=== PATIENT | male | born 1950 | race Caucasian/White ===

== ENCOUNTER 2016-09-29 22:31 | Inpatient (IN) ==
[2016-09-29] MEDS ORDERED: Acetaminophen 325 MG TABLET PO PRN (23:40)
[2016-09-29] MEDS ORDERED: Naloxone 0.4 MG/ML INJ IVP PRN (23:40)
--- NOTE | 2016-09-29 23:40 | Internal Med History&Physical ---
Date of Encounter: 09/29/16 Time of Encounter: 23:39 Assessment and Plan (1) Sepsis Current visit: Yes Status: Acute patient comes in with signs and symptoms of respiratory system etiology and found to have infiltrate on diagnostic imaging, he additionally meets SIRS criteria with the aforementioned source, lactic acid was 4.3, he received fluid bolus at [place], we will admit for further management with empiric Abx pending microbiology results, will check urine strep and legionella, supplemental oxygen as needed, concern about hx of CHF with unknown LVEF-we will get a 2D echo Qualifiers: Sepsis type: sepsis due to unspecified organism Qualified Code(s): A41.9 - Sepsis, unspecified organism (2) Pneumonia Current visit: Yes Status: Acute infiltrate in the right upper lobe, further assessment and plan per sepsis section Qualifiers: Pneumonia type: due to unspecified organism Laterality: right Lung location: upper lobe of lung Qualified Code(s): J18.1 - Lobar pneumonia, unspecified organism (3) COPD (chronic obstructive pulmonary disease) Current visit: Yes Status: Acute he has slight wheezing but this is in the setting of pneumonia, we will do scheduled and PRN nebs Qualifiers: COPD type: chronic bronchitis Chronic bronchitis type: simple Qualified Code(s): J41.0 - Simple chronic bronchitis (4) HTN (hypertension) Current visit: Yes Status: Chronic we will continue his home medications with BP monitoring Qualifiers: Hypertension type: essential hypertension Qualified Code(s): I10 - Essential (primary) hypertension Internal Medicine - H&P: HPI Chief complaint: shortness of breath Admitted From: Hospital to Hospital Transfer Plans for Post Hospital Care: Home History of present illness: Mr. Chase is a 66 year old male with a hx of COPD on chronic prednisone/HTN who was in his usual state of health until 3-4 days prior to presentation when he began to experience cough that was non productive, dyspnea that was worse than his baseline as well as dyspnea on exertion. This was associated with malaise, poor appetite, generalized weakness. He also had intermittent subjective fevers and chills. This progressed since it began so he presented to [facility] today for further management because it was not getting any better. At [facility] he had a fever of around 102, his serum lactic acid was 4.3, so he was transferred here for higher level of care. Past Med Surg Social Fam HX - Past Medical History Medical history: arthritis, asthma, CHF, COPD, coronary artery disease, hyperlipidemia, hypertension, myocardial infarction Psychiatric history: depression - Past Surgical History Surgical History: angioplasty/stent, coronary bypass (CABG), herniorrhaphy - Social History Smoking Status: Former smoker Smokeless Tobacco Status: No Alcohol use: occasionally Drug use: none - Family History Mother Adopted: No - Additional Family History Additional family history: father is and he had no known medical problems, mother is alive with no known medical problems Internal Medicine - H&P: Meds Ipratropium Neb [Atrovent Neb] 0.5 mg IH Q6HR PRN 12/21/14 [History] Montelukast [Singulair] 10 mg PO HS 12/21/14 [History] Albuterol Neb [Proventil Neb] 2.5 mg IH Q4HR #60 vial.neb 04/28/15 [Rx] Albuterol Sulfate [Albuterol Inhaler] 2 puff IH Q4HR #1 hfa.aer.ad 04/28/15 [Rx] Atorvastatin Calcium [Lipitor] 80 mg PO DAILY 04/28/15 [History] Budesonide/Formoterol 160/4.5 [Symbicort 160/4.5] 2 puff IH BIDR #1 inhaler [Rx] Bumetanide [Bumex] 0.5 mg PO DAILY #15 tablet 07/23/16 [Rx] Doxycycline 100 mg PO BID #6 capsule 07/23/16 [Rx] Isosorbide MONOnitrate (24 HR) [Imdur] 60 mg PO DAILY #30 tab.er.24h 07/23/16 [ Rx] Lactobacillus [Culturelle] 1 each PO BID #6 cap.sprink 07/23/16 [Rx] Metoprolol XL (24 HR) Succ [Toprol XL] 25 mg PO DAILY #30 tab.er.24h 07/23/16 [ Rx] levoFLOXacin [Levaquin] 500 mg PO DAILY #3 tablet 07/23/16 [Rx] predniSONE [PredniSONE] 20 mg PO BIDWM #6 tablet 07/23/16 [Rx] Allergies Peanuts Allergy (Uncoded 04/28/15 16:46) Anaphylaxis All Systems PM: A 10-system review of systems was performed and is negative for pertinent findings except as documented above in the HPI. - Constitutional Vitals: Vital Signs Temperature 102.8 F H 09/29/16 18:20 Pulse Rate 128 09/29/16 18:20 Respiratory Rate 24 09/29/16 18:20 Blood Pressure 129/69 09/29/16 18:20 O2 Sat by Pulse Oximetry 96 09/29/16 18:20 Temperature 102.8 F H 09/29/16 18:23 Pulse Rate 128 09/29/16 18:23 Respiratory Rate 24 09/29/16 18:23 Blood Pressure 129/69 09/29/16 18:23 O2 Sat by Pulse Oximetry 96 09/29/16 18:23 GENERAL: Adult male,lying in bed, Alert, acutely ill looking HEENT: NC/AT, EOMI, PERRLA, anicteric sclera, normal conjunctiva, supple, clear nares, moist mucous membranes, clear oropharynx, RESP: bilateral end expiratory wheeze with reduced AE, no crackles heard CARDIO: Normal hearts sounds; S1 and 2, RRR with no murmurs, no JVD, no ankle edema GI: Soft abdomen, full, no tenderness, no organomegaly felt, normal bowel sounds heard MUSCULOSKELETAL: grossly normal movements bilaterally, no deformities noted NEUROLOGIC: CN 2-12 intact grossly. No motor/sensory deficit appreciated, PSYCHIATRY: AAO x 3. Mood is fair, SKIN: ecchymotic patches noted Internal Med - H&P Results - Labs CBC & Chem 7: 09/30/16 00:47 09/30/16 00:47 - Diagnostic Studies Chest x-ray Status: image reviewed by me
[2016-09-29] MEDS ORDERED: Albuterol 2.5 MG/3 ML NEBULIZER IH PRN (23:42)
[2016-09-30 00:57] LABS: Basophils % 0.2 %; Hemoglobin 11.7 g/dL (12.9-16.9); Immature Granulocytes % 1.5 % (0-4); Lymphocytes # 0.2 K/mcL (0.6-4.6); Lymphocytes % 1.4 %; Mean Corpuscular HGB Conc 33.4 g/dL (31.6-35.5); Mean Corpuscular Hemoglobin 31.4 pg (28.0-33.3); Mean Corpuscular Volume 93.8 fL (83.0-100.0); Mean Platelet Volume 9.7 fL (9.4-12.4); Monocytes # 0.9 K/mcL (0.0-1.3); Monocytes % 6.2 %; Neutrophils # 13.1 K/mcL (1.6-8.9); Platelet Count 237 K/mcL (140-400); Red Blood Count 3.73 M/mcL (4.19-5.50); Red Cell Distribution Width 13.3 % (11.5-14.5); Segmented Neutrophils % 90.7 %
[2016-09-30 01:12] LABS: BUN/Creatinine Ratio 23 (6-26); Blood Urea Nitrogen 19 mg/dL (8-26); Calcium 9.2 mg/dL (8.6-10.8); Carbon Dioxide 25 mEq/L (19-29); Chloride 102 mEq/L (98-109); Glucose 120 mg/dL (70-99); Magnesium 1.7 mg/dL (1.6-2.6); Osmolality,Calculated 289 (280-300); Phosphorous 3.8 mg/dL (2.3-4.7); Potassium 3.8 mEq/L (3.5-4.5); Sodium 138 mEq/L (136-145); eGFR For African Americans > 60 (> 60); eGFR For Non-African Americans > 60 (> 60)
[2016-09-30 01:30] LABS: Platelet Estimate Normal (Normal)
[2016-09-30] MEDS ORDERED: Magnesium Sulfate 2 GM in D5% in Water 100 ML IVPB ONE (02:13)
--- NOTE | 2016-09-30 07:59 | Internal Med Progress Note ---
<Milana Loredo - Last Filed: 09/30/16 15:12> Date of Encounter: 09/30/16 Time of Encounter: 07:55 - Assessment and plan (1) Sepsis Current Visit: Yes Status: Acute Assessment and plan: The patient arrived with dyspnea and non productive cough, night sweats, wheezing, fatigue. He denied mcfp, TB exposure, weight loss. Rule out TB so quantiferon-TB and tuberculin skin test PPD ordered. Patient relocated to negative pressure room 11. TB exposure precautions ordered. Patient is on chronic prednisone 5mg for COPD. He technically meets septic shock criteria however he responded well to fluids and blood pressure is stable. He met SIRS criteria febrile, lactic acid 4.3, neutrophil bands over 10%. However, lactic acid is now 1.7. We will continue to monitor. Blood cultures, urine strep and legionella, quantiferon-TB, tuberculin skin test PPD, and chest echocardiogram are pending. Qualifiers: Sepsis type: sepsis due to unspecified organism Qualified Code(s): A41.9 - Sepsis, unspecified organism (2) Pneumonia Current Visit: Yes Status: Acute Assessment and plan: Chest x-ray and CT revealed multifocal pneumonia in the right upper and middle lobes. Patient is on chronic prednisone 5mg for COPD. The patient was started on Azithromycin 500 and Ceftriaxone, while sputum cultures are pending. The patient will be advised to get a follow up chest CT in 6-8 weeks. Qualifiers: Pneumonia type: due to unspecified organism Laterality: right Lung location: upper lobe of lung Qualified Code(s): J18.1 - Lobar pneumonia, unspecified organism (3) COPD (chronic obstructive pulmonary disease) Current Visit: Yes Status: Acute Assessment and plan: The patient is on prednisone 5mg BID chronically. We will continue medication here. Former smoker. Qualifiers: COPD type: chronic bronchitis Chronic bronchitis type: simple Qualified Code(s): J41.0 - Simple chronic bronchitis (4) HTN (hypertension) Current Visit: Yes Status: Chronic Assessment and plan: Blood pressure is stable. Continuing home medications. Isosorbide mononitrate, metoprolol, and atorvastatin. Qualifiers: Hypertension type: essential hypertension Qualified Code(s): I10 - Essential (primary) hypertension - Subjective Interval history: The patient was laying down the bed comfortably. He states he has increased weakness, fatigue, dyspnea, nonproductive cough, night sweats, wheezing, increased urinary frequency. He denies headache, confusion, chest pain, nausea, vomiting, hematuria. Denies sick contacts, travel, mcfp time, known TB exposure. - Constitutional Vitals: Temp Pulse Resp BP Pulse Ox 98 F 78 16 105/66 98 09/30/16 07:01 09/30/16 07:01 09/30/16 07:01 09/30/16 07:01 09/30/16 07:01 General appearance: Present: A&O X 3, pleasant. Absent: no acute distress - Head Head exam: Present: atraumatic, normal inspection - Eye Eye exam: Present: conjuntiva pink. Absent: scleral icterus - Neck Neck exam general surgery: Present: trachea midline. Absent: lymphadenopathy, tenderness - Respiratory Respiratory exam: Present: rales, wheezes. Absent: chest wall tenderness Additional comments: Mild wheezing throughout lungs bilaterally but worse in the right lobe.RALES at base of lungs bilaterally - Cardiovascular Cardiovascular exam: Present: RRR, +S1, +S2. Absent: gallop, JVD, rubs - GI/Abdominal GI/Abdominal exam: Present: normal bowel sounds, soft. Absent: distended, guarding, tenderness - Expanded Lower Extremities Exam Lower Leg exam: Present: normal inspection. Absent: crepitus, erythema, swelling, tenderness - Skin Skin exam: Present: dry, intact Internal Medicine: Result - Labs CBC & Chem 7: 09/30/16 00:47 09/30/16 00:47 Labs: Short CBC 09/30/16 Range/Units 00:47 WBC 14.4 H (4.3-11.1) K/mcL Hgb 11.7 L D (12.9-16.9) g/dL Hct 35.0 L (37.5-50.1) % Plt Count 237 (140-400) K/mcL Neutrophils # 13.1 H (1.6-8.9) K/mcL BMP 09/30/16 00:47 Sodium 138 Potassium 3.8 Chloride 102 Carbon Dioxide 25 BUN 19 Creatinine 0.84 Glucose 120 H Calcium 9.2 Consult Discharge Plan - Plan Referrals: Jesse Lemus DO [Primary Care Provider] - <Chip Zavaleta - Last Filed: 09/30/16 18:17> Date of Encounter: 09/30/16 - Constitutional Vitals: Temp Pulse Resp BP Pulse Ox 97.9 F 91 16 118/66 92 09/30/16 16:15 09/30/16 16:15 09/30/16 16:15 09/30/16 16:15 09/30/16 16:15 Internal Medicine: Result - Labs CBC & Chem 7: 09/30/16 00:47 09/30/16 00:47 Labs: Short CBC 09/30/16 Range/Units 00:47 WBC 14.4 H (4.3-11.1) K/mcL Hgb 11.7 L D (12.9-16.9) g/dL Hct 35.0 L (37.5-50.1) % Plt Count 237 (140-400) K/mcL Neutrophils # 13.1 H (1.6-8.9) K/mcL BMP 09/30/16 00:47 Sodium 138 Potassium 3.8 Chloride 102 Carbon Dioxide 25 BUN 19 Creatinine 0.84 Glucose 120 H Calcium 9.2 - Impressions Impressions Chest CT 09/30/16 10:18 IMPRESSION: 1. Interval development of dense airspace consolidation throughout the right upper and right middle lobes, most likely representing multifocal pneumonia. Intrapulmonary malignancy is considered less likely. Suggest appropriate clinical treatment, and recommend short-term chest CT follow-up in 6-8 weeks to ensure complete clearing in some multifocal opacities. Alternatively, formal pulmonary consultation and bronchoscopy could be considered. 2. Interval development of mild mediastinal lymphadenopathy, most likely benign and reactive in etiology given the patient's underlying lung findings. However, this should also be followed to resolution. D/ / 09/30/2016 12:56:29 Will Villanueva MD / lisbet Interpreting Provider: Will Villanueva MD - Attending Attestation I examined this patient and my medical decision-making was reviewed with the Resident Physician, Dr Loredo. I agree with the documented findings, disposition and treatment plan as described except to the extent set forth below. patient appears in no acute distress. José Manuel lung exam reveals bilateral wheezes and rales. Plan: IV fluids, IV antibiotics for pneumonia. Follow-up cultures.
[2016-09-30] MEDS: Azithromycin 250 MG TABLET PO SCH (09:13)
[2016-09-30] MEDS: predniSONE 5 MG TABLET PO SCH ×2 (09:13→18:05)
[2016-09-30] MEDS: Metoprolol XL (24 HR) Succ 25 MG TAB.ER.24H PO SCH (09:13)
[2016-09-30] MEDS: Isosorbide MONOnitrate (24 HR) 60 MG TAB.ER.24H PO SCH (09:13)
[2016-09-30] MEDS ORDERED: Tuberculin Skin Test (PPD) 5 TUB/0.1 ML VIAL ID ONE (11:50)
[2016-09-30] MEDS: Aspirin Enteric Coated 325 MG Tablet PO SCH (22:37)
[2016-10-01 01:25] LABS: Hematocrit 34.8 % (37.5-50.1); Hemoglobin 11.3 g/dL (12.9-16.9); Lymphocytes # 0.4 K/mcL (0.6-4.6); Mean Corpuscular HGB Conc 32.5 g/dL (31.6-35.5); Mean Corpuscular Hemoglobin 31.3 pg (28.0-33.3); Mean Corpuscular Volume 96.4 fL (83.0-100.0); Mean Platelet Volume 10.5 fL (9.4-12.4); Monocytes # 1.1 K/mcL (0.0-1.3); Platelet Count 271 K/mcL (140-400); Red Blood Count 3.61 M/mcL (4.19-5.50); Red Cell Distribution Width 13.4 % (11.5-14.5)
[2016-10-01 01:41] LABS: Alanine Aminotransferase 17 Units/L (0-55); Albumin/Globulin Ratio 0.5 (1.1-2.2); Alkaline Phosphatase 75 Units/L (38-126); Aspartate Amino Transferase 22 Units/L (5-34); BUN/Creatinine Ratio 33 (6-26); Bilirubin,Total 0.3 mg/dL (0.2-1.2); Blood Urea Nitrogen 28 mg/dL (8-26); Calcium 9.4 mg/dL (8.6-10.8); Carbon Dioxide 33 mEq/L (19-29); Chloride 100 mEq/L (98-109); Globulin 4.1 g/dL (2.4-3.5); Glucose 129 mg/dL (70-99); Osmolality,Calculated 297 (280-300); Potassium 3.9 mEq/L (3.5-4.5); Sodium 140 mEq/L (136-145); Total Protein 6.1 g/dL (6.0-8.3); eGFR For African Americans > 60 (> 60); eGFR For Non-African Americans > 60 (> 60)
[2016-10-01 01:48] LABS: Neutrophils # 16.4 K/mcL (1.6-8.9); Platelet Estimate Normal (Normal)
[2016-10-01] MEDS: *HR* Enoxaparin 40 MG/0.4 ML SYRINGE SQ SCH (05:43)
[2016-10-01] MEDS: Azithromycin 250 MG TABLET PO SCH (08:28)
[2016-10-01] MEDS: Aspirin Enteric Coated 325 MG Tablet PO SCH (08:28)
[2016-10-01] MEDS: predniSONE 5 MG TABLET PO SCH (08:28)
[2016-10-01] MEDS: Isosorbide MONOnitrate (24 HR) 60 MG TAB.ER.24H PO SCH (08:29)
[2016-10-01] MEDS: Metoprolol XL (24 HR) Succ 25 MG TAB.ER.24H PO SCH (08:29)
--- NOTE | 2016-10-01 11:29 | Internal Med Progress Note ---
Addendum entered and electronically signed by Milana Loredo DO 10/01/16 14:26: The patient was given solumedrol, duonebs, and ipratropium for COPD exacerbation. Original Note: <Milana Loredo - Last Filed: 10/01/16 11:27> Date of Encounter: 10/01/16 Time of Encounter: 09:00 - Assessment and plan (1) Sepsis Current Visit: Yes Status: Acute Assessment and plan: Should being treated for multifocal pneumonia the right upper and middle lobes The patient arrived with dyspnea and non productive cough, night sweats, wheezing, fatigue. He denied longterm, TB exposure, weight loss. Rule out TB so quantiferon-TB and tuberculin skin test PPD ordered. Patient relocated to negative pressure room 11. TB exposure precautions ordered. Patient is on IV antibiotics, IV fluids, relators of supplemental oxygen Patient is on chronic prednisone 5mg for COPD. He technically meets septic shock criteria however he responded well to fluids and blood pressure is stable. He met SIRS criteria febrile, lactic acid 4.3, neutrophil bands over 10%. However, lactic acid yesterday was 1.7. We will continue to monitor. Blood cultures, urine strep and legionella, quantiferon-TB, tuberculin skin test PPD, and chest echocardiogram are pending. Qualifiers: Sepsis type: sepsis due to unspecified organism Qualified Code(s): A41.9 - Sepsis, unspecified organism (2) Pneumonia Current Visit: Yes Status: Acute Assessment and plan: Chest x-ray and CT revealed multifocal pneumonia in the right upper and middle lobes. Patient is on chronic prednisone 5mg for COPD. The patient was started on Azithromycin 500 and Ceftriaxone, while sputum cultures are pending. Patient is on 3L of supplemental oxygen. The patient will be advised to get a follow up chest CT in 6-8 weeks. Qualifiers: Pneumonia type: due to unspecified organism Laterality: right Lung location: upper lobe of lung Qualified Code(s): J18.1 - Lobar pneumonia, unspecified organism (3) COPD (chronic obstructive pulmonary disease) Current Visit: Yes Status: Acute Assessment and plan: The patient is on prednisone 5mg BID chronically. We will continue medication here. Former smoker. Qualifiers: COPD type: chronic bronchitis Chronic bronchitis type: simple Qualified Code(s): J41.0 - Simple chronic bronchitis (4) HTN (hypertension) Current Visit: Yes Status: Chronic Assessment and plan: Blood pressure is stable. Continuing home medications. Isosorbide mononitrate, metoprolol, aspirin, and atorvastatin. Qualifiers: Hypertension type: essential hypertension Qualified Code(s): I10 - Essential (primary) hypertension (5) CHF (congestive heart failure) Current Visit: No Status: Chronic Assessment and plan: Echocardiogram revealed LVEF 25%. On 03/10/2014 LVEF was 40-45% Cardiology consulted. Qualifiers: Congestive heart failure type: combined Congestive heart failure chronicity : chronic Qualified Code(s): I50.42 - Chronic combined systolic (congestive) and diastolic (congestive) heart failure - Subjective Interval history: The patient was laying down in bed. He states that his dyspnea is worse today. He is on 3 L of oxygen. He states he has increased weakness, fatigue, nonproductive cough, night sweats , wheezing, increased urinary frequency, chills. He denies headache, confusion, chest pain, nausea, vomiting, hematuria. Denies sick contacts, travel, longterm time, known TB exposure. - Constitutional Vitals: Temp Pulse Resp BP Pulse Ox 97.8 F 91 18 99/65 95 10/01/16 08:26 10/01/16 08:26 10/01/16 08:26 10/01/16 08:26 10/01/16 08:33 General appearance: Present: A&O X 3, pleasant, answers questions appropriately. Absent: no acute distress - Head Head exam: Present: atraumatic - Eye Eye exam: Present: conjuntiva pink Additional comments: No scleral icterus - Neck Neck exam general surgery: Present: supple, trachea midline Additional comments: No tenderness, lymphadenopathy - Respiratory Respiratory exam: Present: decreased breath sounds, rales, wheezes Additional comments: Tactile fremitis is more pronounced in the right lung. RALES in base of lungs bilaterally. Dull to percussion at the base of lungs bilaterally and right middle lobe. Wheezing bilaterally - Cardiovascular Cardiovascular exam: Present: RRR, +S1, +S2 Additional comments: No rubs, clicks, gallops. - GI/Abdominal GI/Abdominal exam: Present: normal bowel sounds, soft Additional comments: No tenderness, guarding, firm. - Extremities Exam Additional comments: No lower extremity edema, erythema, tenderness - Back Exam Back exam: Absent: tenderness (No tenderness. Scan is moist) - Skin Skin exam: Present: dry (Legs are dry.), intact, warm Additional comments: Purpura on upper extremities bilaterally Internal Medicine: Result - Labs CBC & Chem 7: 10/01/16 00:32 10/01/16 00:32 Labs: Short CBC 10/01/16 Range/Units 00:32 WBC 17.8 H (4.3-11.1) K/mcL Hgb 11.3 L (12.9-16.9) g/dL Hct 34.8 L (37.5-50.1) % Plt Count 271 (140-400) K/mcL Neutrophils # 16.4 H (1.6-8.9) K/mcL BMP 10/01/16 00:32 Sodium 140 Potassium 3.9 Chloride 100 Carbon Dioxide 33 H BUN 28 H Creatinine 0.84 Glucose 129 H Calcium 9.4 Cardiac Enzymes 09/30/16 09/30/16 10/01/16 Range/Units 18:49 21:54 00:32 Troponin I 0.01 0.01 0.01 (0-0.03) ng/mL Liver Function 10/01/16 Range/Units 00:32 Total Bilirubin 0.3 (0.2-1.2) mg/dL AST 22 (5-34) Units/L ALT 17 (0-55) Units/L Alkaline Phosphatase 75 (38-126) Units/L Albumin 2.0 L (3.5-5.0) g/dL - Impressions Impressions Chest CT 09/30/16 10:18 IMPRESSION: 1. Interval development of dense airspace consolidation throughout the right upper and right middle lobes, most likely representing multifocal pneumonia. Intrapulmonary malignancy is considered less likely. Suggest appropriate clinical treatment, and recommend short-term chest CT follow-up in 6-8 weeks to ensure complete clearing in some multifocal opacities. Alternatively, formal pulmonary consultation and bronchoscopy could be considered. 2. Interval development of mild mediastinal lymphadenopathy, most likely benign and reactive in etiology given the patient's underlying lung findings. However, this should also be followed to resolution. D/ / 09/30/2016 12:56:29 Will Villanueva MD / lisbet Interpreting Provider: Will Villanueva MD Consult Discharge Plan - Plan Referrals: Jesse Lemus DO [Primary Care Provider] - <Chip Zavaleta - Last Filed: 10/01/16 18:57> Date of Encounter: 10/01/16 - Constitutional Vitals: Temp Pulse Resp BP Pulse Ox 97.8 F 91 18 99/65 93 10/01/16 08:26 10/01/16 08:26 10/01/16 15:55 10/01/16 08:26 10/01/16 15:55 Internal Medicine: Result - Labs CBC & Chem 7: 10/01/16 00:32 10/01/16 00:32 Labs: Short CBC 10/01/16 Range/Units 00:32 WBC 17.8 H (4.3-11.1) K/mcL Hgb 11.3 L (12.9-16.9) g/dL Hct 34.8 L (37.5-50.1) % Plt Count 271 (140-400) K/mcL Neutrophils # 16.4 H (1.6-8.9) K/mcL BMP 10/01/16 00:32 Sodium 140 Potassium 3.9 Chloride 100 Carbon Dioxide 33 H BUN 28 H Creatinine 0.84 Glucose 129 H Calcium 9.4 Cardiac Enzymes 09/30/16 09/30/16 10/01/16 Range/Units 18:49 21:54 00:32 Troponin I 0.01 0.01 0.01 (0-0.03) ng/mL Liver Function 10/01/16 Range/Units 00:32 Total Bilirubin 0.3 (0.2-1.2) mg/dL AST 22 (5-34) Units/L ALT 17 (0-55) Units/L Alkaline Phosphatase 75 (38-126) Units/L Albumin 2.0 L (3.5-5.0) g/dL - ABG Interpretation ABG results: ABG ABG pH 7.43 pH Units (7.32-7.45) 10/01/16 11:53 ABG pCO2 51 mmHg (35-45) H 10/01/16 11:53 ABG pO2 77 mmHg (85-104) L 10/01/16 11:53 ABG O2 Saturation 96 % (95-98) 10/01/16 11:53 - Attending Attestation I examined this patient and my medical decision-making was reviewed with the Resident Physician, Dr Loredo. I agree with the documented findings, disposition and treatment plan as described except to the extent set forth below. On exam b/l expiratory wheezes. COPD exacerbation: we'll add Solumedrol and Duoneb
[2016-10-01] MEDS: Ipratropium/Albuterol Neb 3 ML IH SCH ×4 (11:58→23:37)
[2016-10-01 12:07] LABS: ABG Base Excess 8.2 mEq/L (-2.0 to 3.0); ABG HCO3 33.9 mEQ/L (21-27); ABG Oxygen Saturation 96 % (95-98); ABG PCO2 51 mmHg (35-45); ABG PH 7.43 pH Units (7.32-7.45); ABG PO2 77 mmHg (85-104); ABG TCO2 35.5 mEq/L (20-26); Blood Gas Liter Flow 2.5 L/MIN
[2016-10-01] MEDS: methylPREDNISolone 125 MG/2 ML VIAL IVP SCH ×3 (13:24→23:58)
[2016-10-02 03:50] LABS: Basophils # 0.1 K/mcL (0.0-0.2); Basophils % 0.3 %; Hematocrit 32.2 % (37.5-50.1); Hemoglobin 10.6 g/dL (12.9-16.9); Immature Granulocytes % 1.5 % (0-4); Lymphocytes # 0.4 K/mcL (0.6-4.6); Lymphocytes % 2.1 %; Mean Corpuscular HGB Conc 32.9 g/dL (31.6-35.5); Mean Corpuscular Hemoglobin 31.6 pg (28.0-33.3); Mean Corpuscular Volume 96.1 fL (83.0-100.0); Mean Platelet Volume 10.4 fL (9.4-12.4); Monocytes # 0.6 K/mcL (0.0-1.3); Monocytes % 3.7 %; Neutrophils # 15.7 K/mcL (1.6-8.9); Platelet Count 299 K/mcL (140-400); Red Blood Count 3.35 M/mcL (4.19-5.50); Red Cell Distribution Width 13.4 % (11.5-14.5); Segmented Neutrophils % 92.4 %
[2016-10-02 04:03] LABS: Alanine Aminotransferase 22 Units/L (0-55); Albumin/Globulin Ratio 0.5 (1.1-2.2); Alkaline Phosphatase 83 Units/L (38-126); Aspartate Amino Transferase 30 Units/L (5-34); BUN/Creatinine Ratio 30 (6-26); Bilirubin,Total 0.2 mg/dL (0.2-1.2); Blood Urea Nitrogen 24 mg/dL (8-26); Calcium 9.3 mg/dL (8.6-10.8); Carbon Dioxide 33 mEq/L (19-29); Chloride 99 mEq/L (98-109); Globulin 3.9 g/dL (2.4-3.5); Glucose 184 mg/dL (70-99); Osmolality,Calculated 297 (280-300); Potassium 3.5 mEq/L (3.5-4.5); Sodium 139 mEq/L (136-145); Total Protein 5.8 g/dL (6.0-8.3); eGFR For African Americans > 60 (> 60); eGFR For Non-African Americans > 60 (> 60)
[2016-10-02 04:04] LABS: Albumin 1.9 g/dL (3.5-5.0)
[2016-10-02 04:21] LABS: Platelet Estimate Normal (Normal); Toxic Granulation Present (Not Present)
[2016-10-02] MEDS: Ipratropium/Albuterol Neb 3 ML IH SCH ×5 (04:59→19:41)
[2016-10-02] MEDS: *HR* Enoxaparin 40 MG/0.4 ML SYRINGE SQ SCH (05:48)
[2016-10-02] MEDS: methylPREDNISolone 125 MG/2 ML VIAL IVP SCH ×3 (05:48→17:17)
[2016-10-02 06:10] LABS: ABG Base Excess 9.4 mEq/L (-2.0 to 3.0); ABG Glucose 153 mg/dL (60-95); ABG HCO3 35.2 mEQ/L (21-27); ABG Hematocrit 32 % (35-51); ABG Ionized Calcium 1.21 mmol/L (1.15-1.35); ABG Oxygen Saturation 97 % (95-98); ABG PCO2 53 mmHg (35-45); ABG PH 7.43 pH Units (7.32-7.45); ABG PO2 88 mmHg (85-104); ABG TCO2 36.8 mEq/L (20-26); Blood Gas FiO2 30 %; Blood Gas Liter Flow 2.5 L/MIN
[2016-10-02] MEDS: Aspirin Enteric Coated 325 MG Tablet PO SCH (09:33)
[2016-10-02] MEDS: Isosorbide MONOnitrate (24 HR) 60 MG TAB.ER.24H PO SCH (09:33)
[2016-10-02] MEDS: Azithromycin 250 MG TABLET PO SCH (09:34)
[2016-10-02] MEDS: Metoprolol XL (24 HR) Succ 25 MG TAB.ER.24H PO SCH (09:34)
[2016-10-02] MEDS ORDERED: Levofloxacin 750 MG/150 ML 750 MG/150 ML BAG IVPB SCH (10:00)
[2016-10-02] MEDS ORDERED: Vancomycin 1,000 MG in D5% in Water 250 ML IVPB SCH ×2 (11:00→18:00)
[2016-10-02] MEDS ORDERED: 0.9 % Sodium Chloride 1,000 ML IVC ONE (11:13)
[2016-10-02] MEDS ORDERED: GuaiFENesin/Codeine Oral Soln 5 ML UDC PO PRN (11:14)
--- NOTE | 2016-10-02 13:09 | Internal Med Progress Note ---
<Milana Loredo - Last Filed: 10/02/16 13:05> Date of Encounter: 10/02/16 Time of Encounter: 10:00 - Assessment and plan (1) Sepsis Current Visit: Yes Status: Acute Assessment and plan: Multifocal pneumonia the right upper and middle lobes. The patient arrived with dyspnea and non productive cough, night sweats, wheezing, fatigue. He denied prison, TB exposure, weight loss. Rule out TB so quantiferon-TB and tuberculin skin test PPD ordered. Will re- check it at 1:30am today Blood cultures, urine strep and legionella, quantiferon-TB, tuberculin skin test PPD Patient relocated to negative pressure room 11. TB exposure precautions ordered. Patient is on IV antibiotics, IV fluids, supplemental oxygen. Patient's blood pressure decreased today, so blood pressure medications are held and the patient received a bolus of saline. He technically meets septic shock criteria however he responded well to fluids and blood pressure is stable. He met SIRS criteria febrile, lactic acid 4.3, neutrophil bands over 10%. However, lactic acid yesterday was 1.7. We will continue to monitor. Qualifiers: Sepsis type: sepsis due to unspecified organism Qualified Code(s): A41.9 - Sepsis, unspecified organism (2) Pneumonia Current Visit: Yes Status: Acute Assessment and plan: Chest x-ray and CT revealed multifocal pneumonia in the right upper and middle lobes. Patient is on chronic prednisone 5mg for COPD but we are holding, pending sputum cultures and quantiferon-TB gold. The patient was started on Azithromycin 500 and Ceftriaxone, while sputum cultures are pending. Patient is on 3L of supplemental oxygen. The patient will be advised to get a follow up chest CT in 6-8 weeks. Qualifiers: Pneumonia type: due to unspecified organism Laterality: right Lung location: upper lobe of lung Qualified Code(s): J18.1 - Lobar pneumonia, unspecified organism (3) COPD (chronic obstructive pulmonary disease) Current Visit: Yes Status: Acute Assessment and plan: The patient is on prednisone 5mg BID chronically, but we are holding pending TB results. Former smoker. Qualifiers: COPD type: chronic bronchitis Chronic bronchitis type: simple Qualified Code(s): J41.0 - Simple chronic bronchitis (4) HTN (hypertension) Current Visit: Yes Status: Chronic Assessment and plan: Hypotensive today at 99/58, holding blood pressure medications. Home medications. Isosorbide mononitrate, metoprolol, aspirin, and atorvastatin. Qualifiers: Hypertension type: essential hypertension Qualified Code(s): I10 - Essential (primary) hypertension (5) CHF (congestive heart failure) Current Visit: No Status: Chronic Assessment and plan: Echocardiogram revealed LVEF 25%. On 03/10/2014 LVEF was 40-45% Patient has a history of CAD with CABG x4 ischemic cardiomyopathy which may be contributing to decreased LVEF. Cardiology was consulted and the patient was started on an gavin inhibitor. Cardiology consulted and stated they would come to the patient. Qualifiers: Congestive heart failure type: combined Congestive heart failure chronicity : chronic Qualified Code(s): I50.42 - Chronic combined systolic (congestive) and diastolic (congestive) heart failure - Subjective Interval history: The patient was laying down in bed. He states that his dyspnea is better today. He is on 3 L of oxygen. He states he has fatigue and nonproductive cough. He denies headache, confusion, chest pain, nausea, vomiting, hematuria, chills. Denies sick contacts, travel, prison time, known TB exposure. - Constitutional Vitals: Temp Pulse Resp BP Pulse Ox 97.4 F L 73 18 99/58 97 10/02/16 12:25 10/02/16 12:25 10/02/16 12:25 10/02/16 12:25 10/02/16 12:25 General appearance: Present: A&O X 3, pleasant, answers questions appropriately. Absent: no acute distress - Head Head exam: Present: atraumatic, normal inspection - Eye Eye exam: Present: normal appearance (No scleral icterus), conjuntiva pink - Neck Neck exam general surgery: Present: supple, trachea midline (Nontender) - Respiratory Respiratory exam: Present: rales, wheezes Additional comments: Tactile fremitis is more pronounced on the right side no stridor, respiratory distress - Cardiovascular Cardiovascular exam: Present: RRR - GI/Abdominal GI/Abdominal exam: Present: normal bowel sounds, soft, no peritoneal signs Additional comments: No guarding, tenderness, distended - Extremities Exam Extremities exam: Present: normal inspection. Absent: pedal edema, tenderness - Back Exam Back exam: Present: normal inspection Additional comments: Nose CVA tenderness - Skin Skin exam: Present: dry, intact Internal Medicine: Result - Labs CBC & Chem 7: 10/02/16 03:44 10/02/16 03:44 Labs: Short CBC 10/02/16 Range/Units 03:44 WBC 17.0 H (4.3-11.1) K/mcL Hgb 10.6 L (12.9-16.9) g/dL Hct 32.2 L (37.5-50.1) % Plt Count 299 (140-400) K/mcL Neutrophils # 15.7 H (1.6-8.9) K/mcL BMP 10/02/16 03:44 Sodium 139 Potassium 3.5 Chloride 99 Carbon Dioxide 33 H BUN 24 Creatinine 0.80 Glucose 184 H Calcium 9.3 Liver Function 10/02/16 Range/Units 03:44 Total Bilirubin 0.2 (0.2-1.2) mg/dL AST 30 (5-34) Units/L ALT 22 (0-55) Units/L Alkaline Phosphatase 83 (38-126) Units/L Albumin 1.9 L (3.5-5.0) g/dL - ABG Interpretation ABG results: ABG ABG pH 7.43 pH Units (7.32-7.45) 10/02/16 05:55 ABG pCO2 53 mmHg (35-45) H 10/02/16 05:55 ABG pO2 88 mmHg (85-104) 10/02/16 05:55 ABG O2 Saturation 97 % (95-98) 10/02/16 05:55 - Impressions Impressions Chest CT 09/30/16 10:18 IMPRESSION: 1. Interval development of dense airspace consolidation throughout the right upper and right middle lobes, most likely representing multifocal pneumonia. Intrapulmonary malignancy is considered less likely. Suggest appropriate clinical treatment, and recommend short-term chest CT follow-up in 6-8 weeks to ensure complete of the multifocal opacities. Alternatively, formal pulmonary consultation and bronchoscopy could be considered. 2. Interval development of mild mediastinal lymphadenopathy, most likely benign and reactive in etiology given the patient's underlying lung findings. However, this should also be followed to resolution. D/ /30/2016 12:56:29 Will Villanueva MD / lisbet Interpreting Provider: Will Villanueva MD Consult Discharge Plan - Plan Referrals: Jesse Lemus DO [Primary Care Provider] - <EhsanChip terry - Last Filed: 10/02/16 19:36> Date of Encounter: 10/02/16 - Constitutional Vitals: Temp Pulse Resp BP Pulse Ox 97.8 F 54 20 101/56 97 10/02/16 17:28 10/02/16 17:28 10/02/16 17:28 10/02/16 17:28 10/02/16 17:28 Internal Medicine: Result - Labs CBC & Chem 7: 10/02/16 03:44 10/02/16 03:44 Labs: Short CBC 10/02/16 Range/Units 03:44 WBC 17.0 H (4.3-11.1) K/mcL Hgb 10.6 L (12.9-16.9) g/dL Hct 32.2 L (37.5-50.1) % Plt Count 299 (140-400) K/mcL Neutrophils # 15.7 H (1.6-8.9) K/mcL BMP 10/02/16 03:44 Sodium 139 Potassium 3.5 Chloride 99 Carbon Dioxide 33 H BUN 24 Creatinine 0.80 Glucose 184 H Calcium 9.3 Liver Function 10/02/16 Range/Units 03:44 Total Bilirubin 0.2 (0.2-1.2) mg/dL AST 30 (5-34) Units/L ALT 22 (0-55) Units/L Alkaline Phosphatase 83 (38-126) Units/L Albumin 1.9 L (3.5-5.0) g/dL - ABG Interpretation ABG results: ABG ABG pH 7.43 pH Units (7.32-7.45) 10/02/16 05:55 ABG pCO2 53 mmHg (35-45) H 10/02/16 05:55 ABG pO2 88 mmHg (85-104) 10/02/16 05:55 ABG O2 Saturation 97 % (95-98) 10/02/16 05:55 - Impressions Impressions Chest CT 09/30/16 10:18 IMPRESSION: 1. Interval development of dense airspace consolidation throughout the right upper and right middle lobes, most likely representing multifocal pneumonia. Intrapulmonary malignancy is considered less likely. Suggest appropriate clinical treatment, and recommend short-term chest CT follow-up in 6-8 weeks to ensure complete of the multifocal opacities. Alternatively, formal pulmonary consultation and bronchoscopy could be considered. 2. Interval development of mild mediastinal lymphadenopathy, most likely benign and reactive in etiology given the patient's underlying lung findings. However, this should also be followed to resolution. D/ / 09/30/2016 12:56:29 Will Villanueva MD / lisbet Interpreting Provider: Will Villanueva MD - Attending Attestation I examined this patient and my medical decision-making was reviewed with the Resident Physician, Dr Loredo. I agree with the documented findings, disposition and treatment plan as described except to the extent set forth below. Lung auscultation reveals improvement in right lung field rales from yesterday.wheezing significantly improved. Plan: Continue antibiotic therapy. IV fluids. Trend lactic acid. Follow-up cultures. Follow-up with cardiology. Consult ID.
--- NOTE | 2016-10-02 13:39 | Cardiology Consult Note ---
Date of Encounter: 10/02/16 Time of Encounter: 13:00 Assessment and Plan (1) Pneumonia Current Visit: Yes Status: Acute Per cardiology: -Pneumonia noted to chest x-ray and CT. -On ATB. -Currently in TB precautions, pending PPD. -Mangement per primary service. Qualifiers: Pneumonia type: due to unspecified organism Laterality: right Lung location: upper lobe of lung Qualified Code(s): J18.1 - Lobar pneumonia, unspecified organism (2) Ischemic cardiomyopathy Current Visit: Yes Status: Chronic Per cardiology: -KNown ischemic cardiomyopathy. -[facility] 09/30/16 with LVEF 25% with associated wall motion abnormalities, moderately dilated LV, no significant valvular dysfunction, apex, apical inferior, apical anterior, mid anterior, basal anterior, apical septal, apical lateral, mid anterior lateral, basal anterior lateral, mid anterior septal, mid inferior lateral, basal anterior septal, and basal inferior leiva hypokinetic. Mid inferior, basal inferior, mid inferior septal, and basal inferior septal leiva akinetic. -2013 LVEF 40%, 2010 LVEF 25%. -On beta blayne. Not on gavin, patient reports was previously on lisinopril, but is unsure why it was stopped. Denies allergy/adverse reaction to gavin inhibitors. -Will start gavin inhibitor. Will hold for SBP less than 100. -Cardiology will sign off and will follow in outpatient setting. FOllow up set. (3) Coronary artery disease Current Visit: Yes Status: Chronic Per cardiology: -KNown CAD with previous CABG x4. -[facility] 2013 with 100% stenosis proximal LAD, 99% mid circumflex in stent restenosis with balloon angioplasty performed, 99% OM1 with balloon angioplasty , Right PDA has collaterals that feed from left to right, 100% proximal RCA, BERRIOS to LAD patent, SVG to RCA occluded, SVG to OM1 occluded, SVG to OM2 occluded. -On asa, statin, beta blayne, and imdur. -Patient denies chest pain. -Echo as above. -Will continue to monitor in outpatient setting. Qualifiers: Coronary Disease-Associated Artery/Lesion type: unspecified vessel or lesion type [place] vs. transplanted heart: [place] heart Associated angina: without angina Qualified Code(s): I25.10 - Atherosclerotic heart disease of [place] coronary artery without angina pectoris Discussion w patient/family: The assessment and plan as outlined above was discussed with the patient who expressed understanding and agreement. All questions were answered. Thank you for involving us in the care of your patient. Please call with any questions. Discussed and reviewed with . History of Present Illness Consult date: 10/01/16 Requesting physician: Milana Loredo Consult reason: LVEF severely reduced Chief complaint: cough, shortness of breath History of present illness: Mr. Chase is a 66 year old male with a relevant past medical history of CAD s/ p CABG x4 and multiple PCIs, PVD, HTN, hyperlipidemia, COPD, anxiety, depression , former smoker, [place], ischemic cardiomyopathy. Patient presents to [facility] with complaints of cough, night sweats, and shortness of breath. An echocardiogram has been performed and LVEF noted to be 25%, cardiology was consulted. Patient denies increased peripheral edema. Patient states he has known about this low ejection fraction for a while and he follows with . Past Med Surg Social Fam HX - Past Medical History Attestation: Yes The following information was validated with the patient. Source: patient, old records reviewed Medical history: arthritis, asthma, CHF, COPD, coronary artery disease, hyperlipidemia, hypertension, myocardial infarction Psychiatric history: depression - Past Surgical History Surgical History: angioplasty/stent, coronary bypass (CABG), herniorrhaphy - Social History Smoking Status: Former smoker Smokeless Tobacco Status: No Alcohol use: occasionally Drug use: none - Family History Mother Adopted: No Medications and Allergies Montelukast [Singulair] 10 mg PO HS 12/21/14 [History] Albuterol Sulfate [Albuterol Inhaler] 2 puff IH Q4HR #1 hfa.aer.ad 04/28/15 [Rx] Bumetanide [Bumex] 0.5 mg PO DAILY #15 tablet 07/23/16 [Rx] Isosorbide MONOnitrate (24 HR) [Imdur] 60 mg PO DAILY #30 tab.er.24h 07/23/16 [ Rx] Metoprolol XL (24 HR) Succ [Toprol XL] 25 mg PO DAILY #30 tab.er.24h 07/23/16 [ Rx] Budesonide/Formoterol 160/4.5 [Symbicort 160/4.5] 2 puff IH BID 09/30/16 [ History] Ipratropium/Albuterol Neb [Duoneb] 3 ml IH Q6HR 09/30/16 [History] Loratadine [Allergy Relief] 10 mg PO DAILY 09/30/16 [History] Mometasone Furoate [Nasonex] 17 gm NS DAILY 09/30/16 [History] Oxycodone HCl/Acetaminophen [Percocet 5-325 mg Tablet] 1 tab PO Q4H PRN [History] PredniSONE [Joann] 5 - 10 mg PO DAILY 09/30/16 [History] Roflumilast [Daliresp] 500 mcg PO DAILY 09/30/16 [History] Allergies Peanuts Allergy (Uncoded 04/28/15 16:46) Anaphylaxis All Systems Review: A 10-system review of systems was performed and is negative for pertinent findings except as documented above in the HPI. - Cardiovascular Cardiovascular: as per HPI, dyspnea on exertion - Respiratory Respiratory: cough, dyspnea Physical Examination Vital Signs, Last 4 Hours Temp Pulse Resp BP Pulse Ox 10/02/16 12:25 97.4 F L 73 18 99/58 97 10/02/16 11:59 16 96 General: Conversant, No Apparent Distress HEENT: Atraumatic, Normocephaly, Mucus Membranes Moist Neck: No JVD, Normal carotid pulses Cardiac: Reg Rate and Rhythm, Normal S1 and S2, No Murmur Lungs: Other (Lung sounds coarse throughout) Neuro: Alert and responsive, No focal deficits noted Abdomen: Soft, Non-Tender Skin: No rashes noted on visualized skin Musculoskeletal: No Chest Wall Tenderness Extremities: No Clubbing, No Cyanosis, No Edema, Normal Pulses Results 10/02/16 03:44 10/02/16 03:44 Lab Results Impressions Chest CT 09/30/16 10:18 IMPRESSION: 1. Interval development of dense airspace consolidation throughout the right upper and right middle lobes, most likely representing multifocal pneumonia. Intrapulmonary malignancy is considered less likely. Suggest appropriate clinical treatment, and recommend short-term chest CT follow-up in 6-8 weeks to ensure complete of the multifocal opacities. Alternatively, formal pulmonary consultation and bronchoscopy could be considered. 2. Interval development of mild mediastinal lymphadenopathy, most likely benign and reactive in etiology given the patient's underlying lung findings. However, this should also be followed to resolution. D/ / 09/30/2016 12:56:29 Will Villanueva MD / lisbet Interpreting Provider: Will Villanueva MD Active Medications Acetaminophen (Tylenol) 650 mg PO Q6HR PRN PRN Reason: Mild Pain (1-3) Stop: 03/31/17 23:41 Albuterol Sulfate (Proventil Neb) 2.5 mg IH [id number] PRN; Protocol PRN Reason: Shortness Of Breath/Wheezing Stop: 03/31/17 23:43 Albuterol/Ipratropium (Duoneb) 3 ml IH [id number] PRASANTH PRN Reason: Protocol Stop: 04/02/17 12:01 Last Admin: 10/02/16 11:59 Dose: 3 ml Aspirin (Aspirin) 81 mg PO DAILY [facility] Stop: 04/04/17 09:01 Atorvastatin Calcium (Lipitor) 80 mg PO DAILY [facility] Stop: 04/01/17 09:01 Last Admin: 10/02/16 09:34 Dose: 80 mg Azithromycin (Zithromax) 500 mg PO DAILY [facility] Stop: 04/04/17 09:01 Enoxaparin Sodium (Lovenox) 40 mg SQ 0600 PRASANTH PRN Reason: Protocol Stop: 04/02/17 06:01 Last Admin: 10/02/16 05:48 Dose: 40 mg Guaifenesin/Codeine Phosphate (Robitussin W/Codeine) 10 ml PO Q6HR PRN; Protocol PRN Reason: Cough Stop: 04/03/17 11:15 Ceftriaxone Sodium 2,000 mg/ (Dextrose) 100 mls @ 200 mls/hr IVPB DAILY [facility] Stop: 04/04/17 09:01 Isosorbide Mononitrate (Imdur) 60 mg PO DAILY [facility] Stop: 04/01/17 09:01 Last Admin: 10/02/16 09:33 Dose: 60 mg Lisinopril (Zestril) 2.5 mg PO DAILY [facility] PRN Reason: Protocol Stop: 04/04/17 09:01 Methylprednisolone (Solu-Medrol) 60 mg IVP Q6HR [facility] Stop: 04/02/17 12:01 Last Admin: 10/02/16 10:57 Dose: 60 mg Metoprolol Succinate (Toprol Xl) 25 mg PO DAILY [facility] Stop: 04/01/17 09:01 Last Admin: 10/02/16 09:34 Dose: 25 mg Montelukast Sodium (Singulair) 10 mg PO HS [facility] Stop: 04/01/17 21:01 Last Admin: 10/01/16 22:20 Dose: 10 mg Naloxone HCl (Narcan) 0.4 mg IVP Q2MIN PRN PRN Reason: Opioid Reversal Stop: 03/31/17 23:41 Laboratory Tests 10/02/16 10/02/16 03:44 03:44 WBC 17.0 H Hgb 10.6 L Creatinine 0.80 - Imaging and Cardiology Chest Xray: report reviewed Echo: report reviewed Cardiac cath: report reviewed Other Results: CT Chest report reviewed - EKG Interpretation EKG results cardiology: personally reviewed (ECG reviewed with sinus tachycardia , HR 126.), other (Telemetry reviewed with average HR 63, sinus rhythm with frequent multi-focal PVCs. Couplet PVCs noted and one 6 beat run of non- sustained ventricular tachycardia noted.) Consult Discharge Plan - Plan Referrals: Jesse Lemus, DO [Primary Care Provider] -
[2016-10-02] MEDS ORDERED: Cefepime HCl 2,000 MG in D5% in Water (Mini-Bag+) 100 ML IVPB SCH ×2 (14:00→16:00)
[2016-10-02] MEDS ORDERED: Aminoglycoside Consult 1 EACH MC ONE (15:01)
[2016-10-03] MEDS: Ipratropium/Albuterol Neb 3 ML IH SCH ×7 (00:19→23:15)
[2016-10-03] MEDS: methylPREDNISolone 125 MG/2 ML VIAL IVP SCH ×2 (01:04→05:56)
[2016-10-03 04:18] LABS: ABG Base Excess 11.9 mEq/L (-2.0 to 3.0); ABG HCO3 38.3 mEQ/L (21-27); ABG Oxygen Saturation 98 % (95-98); ABG PCO2 59 mmHg (35-45); ABG PH 7.42 pH Units (7.32-7.45); ABG PO2 99 mmHg (85-104); ABG TCO2 40.1 mEq/L (20-26); Blood Gas FiO2 32 %
[2016-10-03 04:58] LABS: Basophils # 0.1 K/mcL (0.0-0.2); Basophils % 0.4 %; Hematocrit 31.5 % (37.5-50.1); Immature Granulocytes % 3.2 % (0-4); Lymphocytes # 0.7 K/mcL (0.6-4.6); Lymphocytes % 5.2 %; Mean Corpuscular HGB Conc 31.7 g/dL (31.6-35.5); Mean Corpuscular Hemoglobin 30.8 pg (28.0-33.3); Mean Corpuscular Volume 96.9 fL (83.0-100.0); Mean Platelet Volume 10.2 fL (9.4-12.4); Monocytes # 0.6 K/mcL (0.0-1.3); Monocytes % 4.6 %; Neutrophils # 11.4 K/mcL (1.6-8.9); Platelet Count 315 K/mcL (140-400); Red Blood Count 3.25 M/mcL (4.19-5.50); Red Cell Distribution Width 13.5 % (11.5-14.5); Segmented Neutrophils % 86.6 %
[2016-10-03 05:21] LABS: Alanine Aminotransferase 42 Units/L (0-55); Albumin 1.9 g/dL (3.5-5.0); Albumin/Globulin Ratio 0.5 (1.1-2.2); Alkaline Phosphatase 88 Units/L (38-126); Aspartate Amino Transferase 50 Units/L (5-34); BUN/Creatinine Ratio 27 (6-26); Bilirubin,Total 0.2 mg/dL (0.2-1.2); Blood Urea Nitrogen 21 mg/dL (8-26); Calcium 9.1 mg/dL (8.6-10.8); Carbon Dioxide 32 mEq/L (19-29); Chloride 103 mEq/L (98-109); Globulin 3.5 g/dL (2.4-3.5); Glucose 181 mg/dL (70-99); Osmolality,Calculated 300 (280-300); Potassium 3.8 mEq/L (3.5-4.5); Sodium 141 mEq/L (136-145); Total Protein 5.4 g/dL (6.0-8.3); eGFR For African Americans > 60 (> 60); eGFR For Non-African Americans > 60 (> 60)
[2016-10-03] MEDS: *HR* Enoxaparin 40 MG/0.4 ML SYRINGE SQ SCH (05:57)
[2016-10-03 06:01] LABS: Platelet Estimate Normal (Normal); Toxic Granulation Present (Not Present)
[2016-10-03] MEDS: Aspirin 81 MG TAB.CHEW PO SCH (08:47)
[2016-10-03] MEDS: Azithromycin 250 MG TABLET PO SCH (08:47)
[2016-10-03] MEDS: predniSONE 20 MG TABLET PO SCH (08:47)
[2016-10-03] MEDS ORDERED: 0.9 % Sodium Chloride 1,000 ML IVC SCH (10:45)
--- NOTE | 2016-10-03 13:49 | Internal Med Progress Note ---
<Migue Junior - Last Filed: 10/03/16 15:11> Date of Encounter: 10/03/16 Time of Encounter: 08:30 - Assessment and plan (1) Pneumonia Current Visit: Yes Status: Acute Assessment and plan: Chest x-ray and CT revealed multifocal pneumonia in the right upper and middle lobes. -Patient's pneumonia is due to unspecified organism. -Patient is on chronic prednisone 5mg BID for COPD; being held pending TB testing results. -Patient on IV Azithromycin and Ceftriaxone. -Follow up CT advised in 6-8 weeks. Qualifiers: Pneumonia type: due to unspecified organism Laterality: right Lung location: upper lobe of lung Qualified Code(s): J18.1 - Lobar pneumonia, unspecified organism (2) COPD (chronic obstructive pulmonary disease) Current Visit: Yes Status: Acute Assessment and plan: Patient is on prednisone 5mg BID chronically; being held until TB resaults return. -Patient is a former smoker. -Continue to monitor vital signs. Qualifiers: COPD type: chronic bronchitis Chronic bronchitis type: simple Qualified Code(s): J41.0 - Simple chronic bronchitis (3) Sepsis Current Visit: Yes Status: Acute Assessment and plan: On admission, patient met SIRS criteria. -He was febrile and his last echo acid was 4.3. -He had an elevated white count of 14.4. -He responded well to fluids. -Continue to monitor vitals. -Multifocal pneumonia the R upper and R middle lobes. -The patient arrived with dyspnea and non productive cough, night sweats, wheezing, fatigue. He denied skilled nursing, TB exposure, weight loss. -TB test still pending. Qualifiers: Sepsis type: sepsis due to unspecified organism Qualified Code(s): A41.9 - Sepsis, unspecified organism (4) HTN (hypertension) Current Visit: Yes Status: Chronic Assessment and plan: Hypotensive today at 99/59 -Blood pressure medications have been held -His home medications include the following: Isosorbide mononitrate, metoprolol , aspirin, and atorvastatin. Qualifiers: Hypertension type: essential hypertension Qualified Code(s): I10 - Essential (primary) hypertension (5) CHF (congestive heart failure) Current Visit: No Status: Chronic Assessment and plan: Echocardiogram revealed LVEF 25%. On 03/10/2014 LVEF was 40-45% Patient has a history of CAD with CABG x4 ischemic cardiomyopathy which may be contributing to decreased LVEF. Cardiology was consulted. RAYMOND inhibitor was started, which would be held for SBP less than 100. Cardiology will follow up in the outpatient setting. Qualifiers: Congestive heart failure type: combined Congestive heart failure chronicity : chronic Qualified Code(s): I50.42 - Chronic combined systolic (congestive) and diastolic (congestive) heart failure - Subjective Interval history: Patient was seen and examined at bedside this morning. He states that he is feeling better since his admission. He denied ever having an episode of shortness of breath somewhat swollen before his admission. His appetite has improved, and he no longer is experiencing night sweats. He states that 10 minutes earlier, he coughed up blood tinged sputum. For most of the morning, he has had a dry, hacking cough. This is the first time that this happened during his visit. He denies having nausea, vomiting, chest pain, fever, chills , abdominal pain. - Constitutional Vitals: Temp Pulse Resp BP Pulse Ox 97.5 F L 85 16 121/73 99 10/03/16 10:26 10/03/16 10:26 10/03/16 11:28 10/03/16 10:26 10/03/16 11:28 General appearance: Present: A&O X 3, pleasant, answers questions appropriately. Absent: no acute distress - Head Head exam: Present: normal inspection - ENT ENT exam: Present: mucous membranes dry - Respiratory Respiratory exam: Present: wheezes Additional comments: Patient has prominent expiratory wheezes. - Expanded Respiratory Exam Location: wheezes: Left, Right, Upper, Lower (Prominent expiratory wheezes in all lung linder. ) - Cardiovascular Cardiovascular exam: Present: RRR, +S1, +S2. Absent: diastolic murmur, gallop, rubs, systolic murmur - Extremities Exam Extremities exam: Present: warm, radial pulses palpable and symetrical. Absent : calf tenderness, cyanotic, pedal edema Internal Medicine: Result - Labs CBC & Chem 7: 10/03/16 04:49 10/03/16 04:49 Labs: Short CBC 10/03/16 Range/Units 04:49 WBC 13.2 H (4.3-11.1) K/mcL Hgb 10.0 L (12.9-16.9) g/dL Hct 31.5 L (37.5-50.1) % Plt Count 315 (140-400) K/mcL Neutrophils # 11.4 H (1.6-8.9) K/mcL BMP 10/03/16 04:49 Sodium 141 Potassium 3.8 Chloride 103 Carbon Dioxide 32 H BUN 21 Creatinine 0.78 Glucose 181 H Calcium 9.1 Liver Function 10/03/16 Range/Units 04:49 Total Bilirubin 0.2 (0.2-1.2) mg/dL AST 50 H (5-34) Units/L ALT 42 (0-55) Units/L Alkaline Phosphatase 88 (38-126) Units/L Albumin 1.9 L (3.5-5.0) g/dL - ABG Interpretation ABG results: ABG ABG pH 7.42 pH Units (7.32-7.45) 10/03/16 04:03 ABG pCO2 59 mmHg (35-45) H 10/03/16 04:03 ABG pO2 99 mmHg (85-104) 10/03/16 04:03 ABG O2 Saturation 98 % (95-98) 10/03/16 04:03 Consult Discharge Plan - Plan Referrals: Jesse Lemus DO [Primary Care Provider] - <Sanjiv Hernandez - Last Filed: 10/03/16 15:54> Date of Encounter: 10/03/16 - Constitutional Vitals: Temp Pulse Resp BP Pulse Ox 98.2 F 77 16 122/73 99 10/03/16 15:09 10/03/16 15:09 10/03/16 15:09 10/03/16 15:09 10/03/16 15:09 Internal Medicine: Result - Labs CBC & Chem 7: 10/03/16 04:49 10/03/16 04:49 Labs: Short CBC 10/03/16 Range/Units 04:49 WBC 13.2 H (4.3-11.1) K/mcL Hgb 10.0 L (12.9-16.9) g/dL Hct 31.5 L (37.5-50.1) % Plt Count 315 (140-400) K/mcL Neutrophils # 11.4 H (1.6-8.9) K/mcL BMP 10/03/16 04:49 Sodium 141 Potassium 3.8 Chloride 103 Carbon Dioxide 32 H BUN 21 Creatinine 0.78 Glucose 181 H Calcium 9.1 Liver Function 10/03/16 Range/Units 04:49 Total Bilirubin 0.2 (0.2-1.2) mg/dL AST 50 H (5-34) Units/L ALT 42 (0-55) Units/L Alkaline Phosphatase 88 (38-126) Units/L Albumin 1.9 L (3.5-5.0) g/dL - ABG Interpretation ABG results: ABG ABG pH 7.42 pH Units (7.32-7.45) 10/03/16 04:03 ABG pCO2 59 mmHg (35-45) H 10/03/16 04:03 ABG pO2 99 mmHg (85-104) 10/03/16 04:03 ABG O2 Saturation 98 % (95-98) 10/03/16 04:03 - Attending Attestation I examined this patient and my medical decision-making was reviewed with the Resident Physician on 10/03/16. I agree with the documented findings, disposition and treatment plan as described except to the extent set forth below. Patient seen and reviewed 66 M with H.infleunza pneumonia and severe sepsis had an episode of hemoptysis this morning, improved spontaneously Sepsis is improving Physical exam with few scattered wheezing, no rhonchi Continue current antibiotics Bacteremia-Blood culture with GNR, awaiting final results, wait for final results, repeat blood culture Other mgt as in resident's documentation.
[2016-10-04] MEDS: 0.9 % Sodium Chloride 1,000 ML IVC SCH ×30 (01:33→04:04)
[2016-10-04] MEDS: Ipratropium/Albuterol Neb 3 ML IH SCH ×6 (03:57→23:48)
[2016-10-04 05:04] LABS: Basophils # 0.1 K/mcL (0.0-0.2); Basophils % 0.7 %; Hematocrit 32.1 % (37.5-50.1); Hemoglobin 10.4 g/dL (12.9-16.9); Immature Granulocytes % 5.5 % (0-4); Lymphocytes # 1.5 K/mcL (0.6-4.6); Lymphocytes % 7.8 %; Mean Corpuscular HGB Conc 32.4 g/dL (31.6-35.5); Mean Corpuscular Hemoglobin 31.4 pg (28.0-33.3); Mean Platelet Volume 10.4 fL (9.4-12.4); Monocytes % 5.5 %; Neutrophils # 15.3 K/mcL (1.6-8.9); Nucleated Red Blood Cells 0.1 /100 WBC (0); Platelet Count 371 K/mcL (140-400); Red Blood Count 3.31 M/mcL (4.19-5.50); Segmented Neutrophils % 80.5 %
[2016-10-04 05:14] LABS: Monocytes # 1.1 K/mcL (0.0-1.3)
[2016-10-04 05:19] LABS: BUN/Creatinine Ratio 25 (6-26); Blood Urea Nitrogen 19 mg/dL (8-26); Carbon Dioxide 35 mEq/L (19-29); Chloride 102 mEq/L (98-109); Glucose 109 mg/dL (70-99); Osmolality,Calculated 297 (280-300); Potassium 4.2 mEq/L (3.5-4.5); Sodium 142 mEq/L (136-145); eGFR For African Americans > 60 (> 60); eGFR For Non-African Americans > 60 (> 60)
[2016-10-04 05:39] LABS: Large Platelets Present (Not Present); Platelet Estimate Normal (Normal); Reactive Lymphocytes Present (Not Present); Toxic Granulation Present (Not Present)
[2016-10-04] MEDS: *HR* Enoxaparin 40 MG/0.4 ML SYRINGE SQ SCH (05:58)
[2016-10-04] MEDS: predniSONE 20 MG TABLET PO SCH (09:29)
[2016-10-04] MEDS: Aspirin 81 MG TAB.CHEW PO SCH (09:30)
[2016-10-04] MEDS: Azithromycin 250 MG TABLET PO SCH (09:30)
--- NOTE | 2016-10-04 10:39 | Internal Med Progress Note ---
Addendum entered and electronically signed by Migue Junior DO 10/04/16 16:26: Patient has been on azithromycin for 5 days. Will be discontinued. Patient has been on prednisone 40 mg. Original Note: <Migue Junior - Last Filed: 10/04/16 15:08> Date of Encounter: 10/04/16 Time of Encounter: 08:15 - Assessment and plan (1) Pneumonia Current Visit: Yes Status: Acute Assessment and plan: Chest x-ray and CT revealed multifocal pneumonia in the right upper and middle lobes. -Patient's pneumonia is due to unspecified organism. -Patient is on chronic prednisone 5mg BID for COPD; being held pending TB testing results. -Patient on IV Azithromycin and Ceftriaxone. -Follow up CT advised in 6-8 weeks. -Pulmonology will be consulted today. Qualifiers: Pneumonia type: due to unspecified organism Laterality: right Lung location: upper lobe of lung Qualified Code(s): J18.1 - Lobar pneumonia, unspecified organism (2) COPD (chronic obstructive pulmonary disease) Current Visit: Yes Status: Acute Assessment and plan: Patient is on prednisone 5mg BID chronically; being held until TB results return. -Patient is a former smoker. -Continue to monitor vital signs. Qualifiers: COPD type: chronic bronchitis Chronic bronchitis type: simple Qualified Code(s): J41.0 - Simple chronic bronchitis (3) Sepsis Current Visit: Yes Status: Acute Assessment and plan: On admission, patient met SIRS criteria. -He was febrile and his last echo acid was 4.3. -He had an elevated white count of 14.4. White blood cell count has increased to 19. -He responded well to fluids. -Continue to monitor vitals. -Multifocal pneumonia the R upper and R middle lobes. -The patient arrived with dyspnea and non productive cough, night sweats, wheezing, fatigue. He denied usp, TB exposure, weight loss. -TB test still pending. Qualifiers: Sepsis type: sepsis due to unspecified organism Qualified Code(s): A41.9 - Sepsis, unspecified organism (4) HTN (hypertension) Current Visit: Yes Status: Chronic Assessment and plan: Patient was hypotensive during his first day in the hospital. His blood pressure was 99/59. Patient was given IV saline, but later developed swelling in his lower legs. Fluids were discontinued. Blood pressure today was 125/79. -Blood pressure medications have been held -His home medications include the following: Isosorbide mononitrate, metoprolol , aspirin, and atorvastatin. Qualifiers: Hypertension type: essential hypertension Qualified Code(s): I10 - Essential (primary) hypertension (5) CHF (congestive heart failure) Current Visit: No Status: Chronic Assessment and plan: Echocardiogram revealed LVEF 25%. On 03/10/2014 LVEF was 40-45% Patient has a history of CAD with CABG x4 ischemic cardiomyopathy which may be contributing to decreased LVEF. Cardiology was consulted. RAYMOND inhibitor was started, which would be held for SBP less than 100. Cardiology will follow up in the outpatient setting. Qualifiers: Congestive heart failure type: combined Congestive heart failure chronicity : chronic Qualified Code(s): I50.42 - Chronic combined systolic (congestive) and diastolic (congestive) heart failure - Subjective Interval history: Patient was seen and examined at bedside this morning. He denies having nausea , vomiting, chest pain, fever, chills, abdominal pain. He states that his condition has remained relatively the same since yesterday morning. He admits to having a dry hacking cough, and states that he has had several episodes of productive cough with blood-tinged sputum. He denies having any chest pain, fever, chills, or night sweats. Patient also notes that he experienced some swelling in his lower extremities when saline was given yesterday. His swelling has since subsided. - Constitutional Vitals: Temp Pulse Resp BP Pulse Ox 98.0 F 90 16 125/79 99 10/04/16 06:52 10/04/16 06:52 10/04/16 08:14 10/04/16 06:52 10/04/16 08:14 General appearance: Present: A&O X 3, pleasant, answers questions appropriately. Absent: no acute distress - ENT ENT exam: Present: mucous membranes moist - Respiratory Respiratory exam: Present: wheezes (Prominent expiratory wheezes present in all lung linder bilaterally.). Absent: accessory muscle use, rales, rhonchi - Expanded Respiratory Exam Location: wheezes: Left, Right, Upper, Lower (Prominent expiratory wheezes bilaterally.) - Cardiovascular Cardiovascular exam: Present: RRR, +S1, +S2. Absent: diastolic murmur, gallop, rubs, systolic murmur - Extremities Exam Extremities exam: Present: warm, radial pulses palpable and symetrical. Absent : calf tenderness (Swelling was present yesterday after normal saline was given , but has since resolved.), cyanotic, pedal edema Internal Medicine: Result - Labs CBC & Chem 7: 10/04/16 04:48 10/04/16 04:48 Labs: Short CBC 10/04/16 Range/Units 04:48 WBC 19.0 H (4.3-11.1) K/mcL Hgb 10.4 L (12.9-16.9) g/dL Hct 32.1 L (37.5-50.1) % Plt Count 371 (140-400) K/mcL Neutrophils # 15.3 H (1.6-8.9) K/mcL BMP 10/04/16 04:48 Sodium 142 Potassium 4.2 Chloride 102 Carbon Dioxide 35 H BUN 19 Creatinine 0.75 Glucose 109 H Calcium 9.0 - ABG Interpretation ABG results: ABG ABG pH 7.42 pH Units (7.32-7.45) 10/03/16 04:03 ABG pCO2 59 mmHg (35-45) H 10/03/16 04:03 ABG pO2 99 mmHg (85-104) 10/03/16 04:03 ABG O2 Saturation 98 % (95-98) 10/03/16 04:03 Consult Discharge Plan - Plan Referrals: Lauryn Plasencia, [employer] [Advanced Practice Nurse] - 10/17/16 12:30 pm <Sanjiv Hernandez - Last Filed: 10/04/16 16:35> Date of Encounter: 10/04/16 - Constitutional Vitals: Temp Pulse Resp BP Pulse Ox 98.6 F 95 20 114/75 100 10/04/16 15:17 10/04/16 15:17 10/04/16 15:17 10/04/16 15:17 10/04/16 15:17 Internal Medicine: Result - Labs CBC & Chem 7: 10/04/16 04:48 10/04/16 04:48 Labs: Short CBC 10/04/16 Range/Units 04:48 WBC 19.0 H (4.3-11.1) K/mcL Hgb 10.4 L (12.9-16.9) g/dL Hct 32.1 L (37.5-50.1) % Plt Count 371 (140-400) K/mcL Neutrophils # 15.3 H (1.6-8.9) K/mcL BMP 10/04/16 04:48 Sodium 142 Potassium 4.2 Chloride 102 Carbon Dioxide 35 H BUN 19 Creatinine 0.75 Glucose 109 H Calcium 9.0 - ABG Interpretation ABG results: ABG ABG pH 7.42 pH Units (7.32-7.45) 10/03/16 04:03 ABG pCO2 59 mmHg (35-45) H 10/03/16 04:03 ABG pO2 99 mmHg (85-104) 10/03/16 04:03 ABG O2 Saturation 98 % (95-98) 10/03/16 04:03 - Attending Attestation I examined this patient and my medical decision-making was reviewed with the Resident Physician on 10/04/16. I agree with the documented findings, disposition and treatment plan as described except to the extent set forth below. Patient seen and reviewed 66 M with H.infleunza pneumonia and severe sepsis, he is also being managed for COPDE He reports he doesnt feel any Improvement clinically this a.m, he has been having hemoptysis. His WBC count continues to trend up. He has however remained afebrile and his O2 requirements have nor increased. His repeat blood culture done 10/03 is preliminary no growth, we do not have sensitivity on the first culture for 09/29. Physical exam with few scattered wheezing, no rhonchi Continue Ceftriaxone 2g daily, Azithromycin has been completed for days 78 to today, may discontinue, send repeat sputum culture and consult pulmonology for hemoptysis Other mgt as in resident's documentation.
--- NOTE | 2016-10-04 16:48 | Pulmonology Consult Note ---
Date of Encounter: 10/04/16 Time of Encounter: 17:50 Assessment and Plan (1) Pneumonia Current Visit: Yes Status: Acute Patient has significant pneumonia and no improvement clinically with leukocytosis and patient is being on antibiotics with hemoptysis for that reason I believe bronchoscopy would be recommended and I discussed this with him in the presence of the nurse with explaining to him all the risks, alternatives, benefits of the procedure and he agreed to have it done. Will keep patient nothing by mouth postmidnight and plan for this tomorrow morning. Thank you very much for allowing us to participate in the care of this nice gentleman. Qualifiers: Pneumonia type: due to unspecified organism Laterality: right Lung location: upper lobe of lung Qualified Code(s): J18.1 - Lobar pneumonia, unspecified organism (2) COPD (chronic obstructive pulmonary disease) Current Visit: Yes Status: Chronic Agree with current bronchodilators Qualifiers: COPD type: chronic bronchitis Chronic bronchitis type: simple Qualified Code(s): J41.0 - Simple chronic bronchitis (3) Cough with hemoptysis Current Visit: Yes Status: Acute Plan for bronchoscopy History of Present Illness Consult date: 10/04/16 Requesting physician: Sanjiv Hernandez Reason for consult: pneumonia Chief complaint: Shortness of breath History of present illness: This is a very pleasant 66-year-old male who is known to me and he has COPD on nursing home prednisone antihypertension who started to have shortness of breath for the past 4-5 days and also he has productive cough with hemoptysis and dyspnea which is worse than his baseline and also on exertion. Patient is on home oxygen and he denies any chest pain but the has subjective fever and chills. Patient also was noticed to have fever. He has been treated with antibiotics for a few days with no improvement and pulmonary was consulted. He denies any exposure to tuberculosis and denies any sick contacts. Past Med Surg Social Fam HX - Past Medical History Medical history: arthritis, asthma, CHF, COPD, coronary artery disease, hyperlipidemia, hypertension, myocardial infarction Psychiatric history: depression - Past Surgical History Surgical History: angioplasty/stent, coronary bypass (CABG), herniorrhaphy - Social History Smoking Status: Former smoker Smokeless Tobacco Status: No Alcohol use: occasionally Drug use: none - Family History Mother Adopted: No Medications and Allergies Montelukast [Singulair] 10 mg PO HS 12/21/14 [History] Albuterol Sulfate [Albuterol Inhaler] 2 puff IH Q4HR #1 hfa.aer.ad 04/28/15 [Rx] Bumetanide [Bumex] 0.5 mg PO DAILY #15 tablet 07/23/16 [Rx] Isosorbide MONOnitrate (24 HR) [Imdur] 60 mg PO DAILY #30 tab.er.24h 07/23/16 [ Rx] Metoprolol XL (24 HR) Succ [Toprol XL] 25 mg PO DAILY #30 tab.er.24h 07/23/16 [ Rx] Budesonide/Formoterol 160/4.5 [Symbicort 160/4.5] 2 puff IH BID 09/30/16 [ History] Ipratropium/Albuterol Neb [Duoneb] 3 ml IH Q6HR 09/30/16 [History] Loratadine [Allergy Relief] 10 mg PO DAILY 09/30/16 [History] Mometasone Furoate [Nasonex] 17 gm NS DAILY 09/30/16 [History] Oxycodone HCl/Acetaminophen [Percocet 5-325 mg Tablet] 1 tab PO Q4H PRN [History] PredniSONE [Joann] 5 - 10 mg PO DAILY 09/30/16 [History] Roflumilast [Daliresp] 500 mcg PO DAILY 09/30/16 [History] Allergies Peanuts Allergy (Uncoded 04/28/15 16:46) Anaphylaxis All Systems: A 10-system review of systems was performed and is negative for pertinent findings except as documented above in the HPI. Physical Examination Vital Signs: Vital Signs, Last 4 Hours Temp Pulse Resp BP Pulse Ox 10/04/16 15:17 98.6 F 95 20 114/75 100 10/04/16 15:12 18 96 General appearance: appears uncomfortable Eyes: nonicteric ENT: oropharynx moist Mallampati (class): 3 Neck: supple, no lymphadenopathy Effort: mildly labored Auscultation: left: diminished breath sounds, right: rhonchi Percussion: bilateral: not dull Cardiovascular: regular rate and rhythm Gastrointestinal: normoactive bowel sounds, non-distended Extremities: no cyanosis normal mental status, non-focal exam mood appropriate Results - Laboratory Findings CBC and BMP: 10/04/16 04:48 10/04/16 04:48 ABG ABG pH 7.42 pH Units (7.32-7.45) 10/03/16 04:03 ABG pCO2 59 mmHg (35-45) H 10/03/16 04:03 ABG pO2 99 mmHg (85-104) 10/03/16 04:03 ABG O2 Saturation 98 % (95-98) 10/03/16 04:03 Abnormal lab findings: Abnormal lab results WBC 19.0 K/mcL (4.3-11.1) H 10/04/16 04:48 RBC 3.31 M/mcL (4.19-5.50) L 10/04/16 04:48 Hgb 10.4 g/dL (12.9-16.9) L 10/04/16 04:48 Hct 32.1 % (37.5-50.1) L 10/04/16 04:48 Immature Gran % 5.5 % (0-4) H 10/04/16 04:48 Band Neutrophils % 10.0 % (0-4) H 10/01/16 00:32 Neutrophils # 15.3 K/mcL (1.6-8.9) H 10/04/16 04:48 Nucleated RBCs/100 WBC 0.1 /100 WBC (0) H 10/04/16 04:48 Reactive Lymphocytes Present (Not Present) A 10/04/16 04:48 Toxic Granulation Present (Not Present) A 10/04/16 04:48 Large Platelets Present (Not Present) A 10/04/16 04:48 ABG pCO2 59 mmHg (35-45) H 10/03/16 04:03 ABG HCO3 38.3 mEQ/L (21-27) H 10/03/16 04:03 ABG Total CO2 40.1 mEq/L (20-26) H 10/03/16 04:03 ABG Base Excess 11.9 mEq/L (-2.0 to 3.0) H 10/03/16 04:03 ABG Hematocrit 32 % (35-51) L 10/02/16 05:55 Glucose 153 mg/dL (60-95) H 10/02/16 05:55 Carbon Dioxide 35 mEq/L (19-29) H 10/04/16 04:48 Glucose 109 mg/dL (70-99) H 10/04/16 04:48 Lactic Acid 2.4 mmol/L (0.5-2.2) H 10/02/16 15:54 AST 50 Units/L (5-34) H 10/03/16 04:49 Serum Total Protein 5.4 g/dL (6.0-8.3) L 10/03/16 04:49 Albumin 1.9 g/dL (3.5-5.0) L 10/03/16 04:49 Albumin/Globulin Ratio 0.5 (1.1-2.2) L 10/03/16 04:49 - Microbiology Findings Microbiology Findings: Microbiology, Last 48 Hours 10/03/16 08:22 Blood Culture - Preliminary Peripheral Venipuncture No growth. 10/03/16 08:15 Blood Culture - Preliminary Peripheral Venipuncture No growth. 09/30/16 Unknown Legionella Antigen - Final Urine,Clean Catch Streptococcus pneumoniae Antigen (M - Final 10/01/16 15:01 Sputum Culture - Final Sputum 10/02/16 05:00 Acid Fast Stain - Final Sputum 10/01/16 15:01 Acid Fast Stain - Final Sputum - Diagnostic Findings CT scan - chest: report reviewed, image reviewed - Clinical Findings Intake & Output: Intake & Output 10/04/16 10/04/16 10/04/16 07:59 15:59 23:59 Intake Total 360 / 360 Output Total 100 / 100 Balance -100 / -100 360 / 360 Weight 68.42 kg 68.42 kg Consult Discharge Plan - Plan Referrals: Lauryn Plasencia, REINALDO [Advanced Practice Nurse] - 10/17/16 12:30 pm
[2016-10-04 17:33] LABS: QuantiFERON Mitogen minus NIL 0.02 IU/mL
[2016-10-05 06:09] LABS: Basophils # 0.1 K/mcL (0.0-0.2); Basophils % 0.4 %; Hemoglobin 10.4 g/dL (12.9-16.9); Immature Granulocytes % 4.8 % (0-4); Lymphocytes # 1.3 K/mcL (0.6-4.6); Lymphocytes % 6.2 %; Mean Corpuscular HGB Conc 31.5 g/dL (31.6-35.5); Mean Corpuscular Hemoglobin 31.2 pg (28.0-33.3); Mean Corpuscular Volume 99.1 fL (83.0-100.0); Mean Platelet Volume 10.9 fL (9.4-12.4); Monocytes # 0.9 K/mcL (0.0-1.3); Monocytes % 4.4 %; Neutrophils # 17.4 K/mcL (1.6-8.9); Nucleated Red Blood Cells 0.1 /100 WBC (0); Platelet Count 428 K/mcL (140-400); Red Blood Count 3.33 M/mcL (4.19-5.50); Red Cell Distribution Width 14.4 % (11.5-14.5); Segmented Neutrophils % 84.2 %
[2016-10-05 06:27] LABS: BUN/Creatinine Ratio 23 (6-26); Blood Urea Nitrogen 14 mg/dL (8-26); Calcium 8.8 mg/dL (8.6-10.8); Carbon Dioxide 37 mEq/L (19-29); Chloride 100 mEq/L (98-109); Glucose 123 mg/dL (70-99); Osmolality,Calculated 292 (280-300); Potassium 4.5 mEq/L (3.5-4.5); Sodium 140 mEq/L (136-145); eGFR For African Americans > 60 (> 60); eGFR For Non-African Americans > 60 (> 60)
[2016-10-05 07:37] LABS: Platelet Estimate Normal (Normal); Toxic Granulation Present (Not Present)
[2016-10-05] MEDS: Ipratropium/Albuterol Neb 3 ML IH SCH ×6 (07:38→23:07)
[2016-10-05] MEDS ORDERED: *HR* Midazolam HCl 5 MG/5 ML VIAL IVP ONE (07:54)
[2016-10-05] MEDS ORDERED: Lidocaine Viscous Oral Soln 15 ML SOLUTION ONE (07:55)
[2016-10-05] MEDS ORDERED: *HR* FentaNYL (PF) 100 MCG/2 ML VIAL ONE (07:55)
[2016-10-05] MEDS ORDERED: Albuterol 2.5 MG/3 ML NEBULIZER IH ONE (08:06)
[2016-10-05] MEDS ORDERED: *HR* Midazolam HCl 5 MG/5 ML VIAL IVP PRN (08:06)
[2016-10-05] MEDS ORDERED: *HR* FentaNYL (PF) 100 MCG/2 ML VIAL IVP PRN (08:06)
[2016-10-05] MEDS ORDERED: *HR* EPINEPHrine 1 MG/10 ML SYRINGE INTRATRACH PRN (08:06)
[2016-10-05] MEDS ORDERED: Tetracaine/Benzocaine/Butamben 200MG/SPRAY (100SPY/BOT) MM ONE (08:06)
[2016-10-05] MEDS ORDERED: Lidocaine Viscous Oral Soln 15 ML SOLUTION MM ONE (08:06)
--- NOTE | 2016-10-05 08:08 | Pre-Sedation Evaluation ---
Pre-sedation evaluation - Pre-sedation checklist Date of procedure: 10/05/16 Procedure: bronchoscopy Recent Vitals: Last Vital Signs Temp 98.1 F 10/05/16 08:02 Pulse 72 10/05/16 08:02 Resp 16 10/05/16 08:02 BP 112/65 10/05/16 08:02 Pulse Ox 99 10/05/16 08:02 H&P (including ROS) documented in medical record: Yes Previous reaction to sedatives/anesthetics: No Dietary Status: NPO after Midnight Dentition: dentures removed Possible difficult airway: No ASA Classification *see protocol: CLASS III-Severe systemic disease Plan of Care: Pt appropriate candidate for procedure/moderate/conscious sedation , Risks/benefits of procedure/sedation discussed w/ patient/family
[2016-10-05] MEDS ORDERED: 0.9 % Sodium Chloride 1,000 ML IVC SCH (08:15)
[2016-10-05] MEDS: Aspirin 81 MG TAB.CHEW PO SCH (10:21)
[2016-10-05] MEDS: predniSONE 20 MG TABLET PO SCH (10:21)
[2016-10-05 11:16] LABS: Appearance of Body Fluid Hazy (Clear); Volume of Body Fluid 20 mL
[2016-10-05] MEDS: Bumetanide 1 MG TABLET PO SCH (11:28)
--- NOTE | 2016-10-05 16:30 | Internal Med Progress Note ---
<Migue Junior - Last Filed: 10/05/16 16:28> Date of Encounter: 10/05/16 Time of Encounter: 08:05 - Assessment and plan (1) Pneumonia Current Visit: Yes Status: Acute Assessment and plan: Chest x-ray and CT revealed multifocal pneumonia in the right upper and middle lobes. -Patient's pneumonia is due to unspecified organism. -Patient is on chronic prednisone 5mg BID for COPD; being held pending TB testing results. -Patient on IV Azithromycin and Ceftriaxone. -Follow up CT advised in 6-8 weeks. -Pulmonology was consulted, and bronchoscopy was performed. Bronchoscopy revealed bilateral purulent sputum in the airways. Bleeding source was found in the right upper lobe. Friable mucosa was seen as well. Bacterial cultures and viral smears have been performed. Awaiting results. Qualifiers: Pneumonia type: due to unspecified organism Laterality: right Lung location: upper lobe of lung Qualified Code(s): J18.1 - Lobar pneumonia, unspecified organism (2) COPD (chronic obstructive pulmonary disease) Current Visit: Yes Status: Chronic Assessment and plan: Patient is on prednisone 5mg BID chronically; being held until TB results return. -Patient is a former smoker. -Continue to monitor vital signs. Qualifiers: COPD type: chronic bronchitis Chronic bronchitis type: simple Qualified Code(s): J41.0 - Simple chronic bronchitis (3) Sepsis Current Visit: Yes Status: Acute Assessment and plan: On admission, patient met SIRS criteria. -He was febrile and his last echo acid was 4.3. -He had an elevated white count of 14.4. White blood cell count has increased to 20.7. -He responded well to fluids. -Continue to monitor vitals. -Multifocal pneumonia the R upper and R middle lobes. -The patient arrived with dyspnea and non productive cough, night sweats, wheezing, fatigue. He denied prison, TB exposure, weight loss. -TB test still pending. Qualifiers: Sepsis type: sepsis due to unspecified organism Qualified Code(s): A41.9 - Sepsis, unspecified organism (4) HTN (hypertension) Current Visit: Yes Status: Chronic Assessment and plan: Patient was hypotensive during his first day in the hospital. His blood pressure was 99/59. Patient was given IV saline, but later developed swelling in his lower legs. Fluids were discontinued. Blood pressure today was 116/67. -Blood pressure medications have been held -His home medications include the following: Isosorbide mononitrate, metoprolol , aspirin, and atorvastatin. Qualifiers: Hypertension type: essential hypertension Qualified Code(s): I10 - Essential (primary) hypertension (5) CHF (congestive heart failure) Current Visit: No Status: Chronic Assessment and plan: Echocardiogram revealed LVEF 25%. On 03/10/2014 LVEF was 40-45% Patient has a history of CAD with CABG x4 ischemic cardiomyopathy which may be contributing to decreased LVEF. Cardiology was consulted. RAYMOND inhibitor was started, which would be held for SBP less than 100. Cardiology will follow up in the outpatient setting. Qualifiers: Congestive heart failure type: combined Congestive heart failure chronicity : chronic Qualified Code(s): I50.42 - Chronic combined systolic (congestive) and diastolic (congestive) heart failure - Subjective Interval history: Patient was seen and examined at bedside this morning. He states that his condition has remained relatively the same since yesterday morning. He still does not feel well, but he does still have an appetite. He states that the night sweats that he previously are gone. He admits to having a dry hacking cough, and states that he has had several episodes of productive cough with blood-tinged sputum. He denies having any chest pain, fever, chills, or night sweats. Patient states that he has swelling in his feet. - Constitutional Vitals: Temp Pulse Resp BP Pulse Ox 97.8 F 91 18 123/71 95 10/05/16 11:13 10/05/16 11:13 10/05/16 11:13 10/05/16 11:13 10/05/16 11:13 General appearance: Present: A&O X 3, pleasant, answers questions appropriately. Absent: no acute distress - Head Head exam: Present: atraumatic, normocephalic - Eye Eye exam: Present: conjuntiva pink, sclera anicteric - Neck Neck exam general surgery: Present: supple, trachea midline. Absent: lymphadenopathy - Respiratory Respiratory exam: Present: wheezes. Absent: accessory muscle use, CTAB, rales, rhonchi Additional comments: Patient has prominent expiratory wheezes bilaterally - Cardiovascular Cardiovascular exam: Present: RRR, +S1, +S2. Absent: diastolic murmur, gallop, rubs, systolic murmur - Skin Skin exam: Present: dry, intact Internal Medicine: Result - Labs CBC & Chem 7: 10/05/16 03:39 10/05/16 03:39 Labs: Short CBC 10/05/16 Range/Units 03:39 WBC 20.7 H (4.3-11.1) K/mcL Hgb 10.4 L (12.9-16.9) g/dL Hct 33.0 L (37.5-50.1) % Plt Count 428 H (140-400) K/mcL Neutrophils # 17.4 H (1.6-8.9) K/mcL BMP 10/05/16 03:39 Sodium 140 Potassium 4.5 Chloride 100 Carbon Dioxide 37 H BUN 14 Creatinine 0.62 L Glucose 123 H Calcium 8.8 - ABG Interpretation ABG results: ABG ABG pH 7.42 pH Units (7.32-7.45) 10/03/16 04:03 ABG pCO2 59 mmHg (35-45) H 10/03/16 04:03 ABG pO2 99 mmHg (85-104) 10/03/16 04:03 ABG O2 Saturation 98 % (95-98) 10/03/16 04:03 - Impressions Impressions Chest X-Ray 10/05/16 11:11 IMPRESSION: No significant change in appearance of right upper lobe pneumonia, with small right pleural effusion. Underlying pulmonary emphysema noted D/ / Delfino Arias MD / Delfino Arias MD Interpreting Provider: Delfino Arias MD Consult Discharge Plan - Plan Referrals: Lauryn Plasencia, HOB GRINDER [Advanced Practice Nurse] - 10/17/16 12:30 pm <Sanjiv Hernandez T - Last Filed: 10/05/16 16:53> Date of Encounter: 10/05/16 - Constitutional Vitals: Temp Pulse Resp BP Pulse Ox 97.8 F 91 18 123/71 94 10/05/16 11:13 10/05/16 11:13 10/05/16 15:50 10/05/16 11:13 10/05/16 15:50 Internal Medicine: Result - Labs CBC & Chem 7: 10/05/16 03:39 10/05/16 03:39 Labs: Short CBC 10/05/16 Range/Units 03:39 WBC 20.7 H (4.3-11.1) K/mcL Hgb 10.4 L (12.9-16.9) g/dL Hct 33.0 L (37.5-50.1) % Plt Count 428 H (140-400) K/mcL Neutrophils # 17.4 H (1.6-8.9) K/mcL BMP 10/05/16 03:39 Sodium 140 Potassium 4.5 Chloride 100 Carbon Dioxide 37 H BUN 14 Creatinine 0.62 L Glucose 123 H Calcium 8.8 - ABG Interpretation ABG results: ABG ABG pH 7.42 pH Units (7.32-7.45) 10/03/16 04:03 ABG pCO2 59 mmHg (35-45) H 10/03/16 04:03 ABG pO2 99 mmHg (85-104) 10/03/16 04:03 ABG O2 Saturation 98 % (95-98) 10/03/16 04:03 - Impressions Impressions Chest X-Ray 10/05/16 11:11 IMPRESSION: No significant change in appearance of right upper lobe pneumonia, with small right pleural effusion. Underlying pulmonary emphysema noted D/ / Delfino Arias MD / Delfino Arias MD Interpreting Provider: Delfino Arias MD - Attending Attestation I examined this patient and my medical decision-making was reviewed with the Resident Physician on 10/05/16. I agree with the documented findings, disposition and treatment plan as described except to the extent set forth below. Patient seen and reviewed 66 M with H.infleunza pneumonia and severe sepsis, he is also being managed for COPDE Patient is s/p bronchoscopy today with reports showing mucus obstructing the airway and RUL source of bleeding, BAL performed, awaiting cultures. He also complained of swelling of his legs Physical exam with few scattered wheezing, no rhonchi Labs and Imaging reviewed: Repeat CXR with RUL and RLL pneumonia, new R small pleural effusion, Persistent and worsening leukocytosis Discontinue ceftriaxone and escalate antibiotics to Vancomycin and Cefepime, we will follow cultures and de-escalate based on final culture reports. Restart bumex at low dose, continue ACEI, patient has CHFrEF. Continue to hold other antihypertensive. Rest of details as in residents documentation
[2016-10-05] MEDS ORDERED: Vancomycin 1,000 MG in D5% in Water 250 ML IVPB SCH (17:00)
[2016-10-05] MEDS: Vancomycin 1,000 MG in D5% in Water 250 ML IVPB SCH (19:15)
[2016-10-05 19:52] LABS: BUN/Creatinine Ratio 22 (6-26); Blood Urea Nitrogen 17 mg/dL (8-26); Carbon Dioxide 33 mEq/L (19-29); Chloride 96 mEq/L (98-109); Glucose 186 mg/dL (70-99); Osmolality,Calculated 292 (280-300); Potassium 4.8 mEq/L (3.5-4.5); Sodium 138 mEq/L (136-145); eGFR For African Americans > 60 (> 60); eGFR For Non-African Americans > 60 (> 60)
[2016-10-06] MEDS: Cefepime HCl 2,000 MG in D5% in Water (Mini-Bag+) 100 ML IVPB SCH ×4 (00:45→23:16)
[2016-10-06] MEDS: Ipratropium/Albuterol Neb 3 ML IH SCH ×6 (04:19→23:02)
[2016-10-06 06:03] LABS: Hematocrit 34.9 % (37.5-50.1); Hemoglobin 11.2 g/dL (12.9-16.9); Mean Corpuscular HGB Conc 32.1 g/dL (31.6-35.5); Mean Corpuscular Hemoglobin 31.6 pg (28.0-33.3); Mean Corpuscular Volume 98.6 fL (83.0-100.0); Mean Platelet Volume 10.4 fL (9.4-12.4); Platelet Count 423 K/mcL (140-400); Red Blood Count 3.54 M/mcL (4.19-5.50); Red Cell Distribution Width 14.2 % (11.5-14.5)
[2016-10-06] MEDS: *HR* Enoxaparin 40 MG/0.4 ML SYRINGE SQ SCH (06:12)
[2016-10-06] MEDS ORDERED: D5% in Water 250 ML ONE (06:39)
[2016-10-06] MEDS: Vancomycin 1,000 MG in D5% in Water 250 ML IVPB SCH (06:42)
[2016-10-06 07:01] LABS: Eosinophils # 0.7 K/mcL (0.0-0.6); Lymphocytes # 3.4 K/mcL (0.6-4.6); Neutrophils # 12.9 K/mcL (1.6-8.9); Platelet Estimate Normal (Normal)
[2016-10-06 07:02] LABS: Reactive Lymphocytes Present (Not Present)
[2016-10-06 08:02] LABS: QuantiFERON NIL 0.02 IU/mL; QuantiFERON-TB Gold In-Tube INDETERMINATE (Negative)
[2016-10-06] MEDS: Bumetanide 1 MG TABLET PO SCH (08:20)
[2016-10-06] MEDS: Aspirin 81 MG TAB.CHEW PO SCH (08:20)
[2016-10-06] MEDS: predniSONE 20 MG TABLET PO SCH (08:20)
--- NOTE | 2016-10-06 08:51 | Internal Med Progress Note ---
Addendum entered and electronically signed by Migue Junior DO 10/06/16 17:21: Correction: Vancomycin was discontinued in this patient. Cefepime was started on 10/06/16. Patient is on 40 mg of prednisone. TB tests have been negative this far. 2 acid fast smears have been negative. Causative organism for pneumonia in patient was H. Influenzae, as determined by blood culture. Antihypertensive medication was given today. Patient was placed on metoprolol. Original Note: <Migue Junior - Last Filed: 10/06/16 08:48> Date of Encounter: 10/06/16 Time of Encounter: 08:20 - Assessment and plan (1) Pneumonia Current Visit: Yes Status: Acute Assessment and plan: Chest x-ray and CT revealed multifocal pneumonia in the right upper and middle lobes. -Patient's pneumonia is due to unspecified organism. -Patient is on chronic prednisone 5mg BID for COPD; being held pending TB testing results. -Patient on vancomycin. -Follow up CT advised in 6-8 weeks. -Pulmonology was consulted, and bronchoscopy was performed. Bronchoscopy revealed bilateral purulent sputum in the airways. Bleeding source was found in the right upper lobe. Friable mucosa was seen as well. Bacterial cultures and viral smears have been performed. -Sputum culture from bronchoscopy was performed. It revealed normal ranjeet, and no apparent pathogens were isolated. -Repeat chest x-ray was performed yesterday, which revealed no apparent change in the right upper lobe pneumonia. There was no empyema present. Chest x-ray did reveal a small right-sided pleural effusion. Qualifiers: Pneumonia type: due to unspecified organism Laterality: right Lung location: upper lobe of lung Qualified Code(s): J18.1 - Lobar pneumonia, unspecified organism (2) COPD (chronic obstructive pulmonary disease) Current Visit: Yes Status: Chronic Assessment and plan: Patient is on prednisone 5mg BID chronically; being held until TB results return. -Patient is a former smoker. -Continue to monitor vital signs. Qualifiers: COPD type: chronic bronchitis Chronic bronchitis type: simple Qualified Code(s): J41.0 - Simple chronic bronchitis (3) Sepsis Current Visit: Yes Status: Acute Assessment and plan: On admission, patient met SIRS criteria. -He was febrile and his last echo acid was 4.3. -He had an elevated white count of 14.4. White blood cell count had initially increased to 20.7, but today it appears as White blood cell count is trending down. White blood cell count today was 17.0. -He responded well to fluids. -Continue to monitor vitals. -Multifocal pneumonia the R upper and R middle lobes. -Bronchoscopy was performed, and sputum culture was obtained. Revealed normal ranjeet, no apparent pathogens were isolated. -The patient arrived with dyspnea and non productive cough, night sweats, wheezing, fatigue. He denied correction, TB exposure, weight loss. -TB test still pending. Qualifiers: Sepsis type: sepsis due to unspecified organism Qualified Code(s): A41.9 - Sepsis, unspecified organism (4) HTN (hypertension) Current Visit: Yes Status: Chronic Assessment and plan: Patient was hypotensive during his first day in the hospital. His blood pressure was 99/59. Patient was given IV saline, but later developed swelling in his lower legs. Fluids were discontinued. -Blood pressure today was 124/80. -Blood pressure medications have been held -His home medications include the following: Isosorbide mononitrate, metoprolol , aspirin, and atorvastatin. Qualifiers: Hypertension type: essential hypertension Qualified Code(s): I10 - Essential (primary) hypertension (5) CHF (congestive heart failure) Current Visit: No Status: Chronic Assessment and plan: Echocardiogram revealed LVEF 25%. On 03/10/2014 LVEF was 40-45% Patient has a history of CAD with CABG x4 ischemic cardiomyopathy which may be contributing to decreased LVEF. Cardiology was consulted. RAYMOND inhibitor was started, which would be held for SBP less than 100. Cardiology will follow up in the outpatient setting. Qualifiers: Congestive heart failure type: combined Congestive heart failure chronicity : chronic Qualified Code(s): I50.42 - Chronic combined systolic (congestive) and diastolic (congestive) heart failure - Subjective Interval history: Patient was seen and examined at bedside this morning. Patient states that he is better today. He states that he does still have some blood-tinged sputum, however it has decreased somewhat. He said that he did not have much difficulty sleeping yesterday. He feels as if his cough is slightly improving, although he does still have a dry hacking cough from time to time, with sporadic production of sputum. He denies having any chest pain, fever, chills, or night sweats. Patient also states that the swelling in his feet has subsided. - Constitutional Vitals: Temp Pulse Resp BP Pulse Ox 97.7 F 71 14 130/77 92 10/06/16 08:45 10/06/16 08:45 10/06/16 08:45 10/06/16 08:45 10/06/16 08:45 General appearance: Present: A&O X 3, pleasant, answers questions appropriately. Absent: no acute distress - Head Head exam: Present: atraumatic, normocephalic - Neck Neck exam general surgery: Present: supple, trachea midline. Absent: lymphadenopathy - Respiratory Respiratory exam: Present: wheezes. Absent: accessory muscle use, rales, rhonchi Additional comments: Expiratory wheezes present bilaterally, primarily in the lower lung linder. Expiratory wheezes have improved since yesterday. - Cardiovascular Cardiovascular exam: Present: RRR, +S1, +S2. Absent: diastolic murmur, gallop, rubs, systolic murmur - Extremities Exam Extremities exam: Present: warm, radial pulses palpable and symetrical - Skin Skin exam: Present: dry, intact Internal Medicine: Result - Labs CBC & Chem 7: 10/06/16 05:29 10/05/16 18:42 Labs: Short CBC 10/06/16 Range/Units 05:29 WBC 17.0 H (4.3-11.1) K/mcL Hgb 11.2 L (12.9-16.9) g/dL Hct 34.9 L (37.5-50.1) % Plt Count 423 H (140-400) K/mcL Neutrophils # 12.9 H (1.6-8.9) K/mcL BMP 10/05/16 18:42 Sodium 138 Potassium 4.8 H Chloride 96 L Carbon Dioxide 33 H BUN 17 Creatinine 0.76 Glucose 186 H Calcium 9.0 - ABG Interpretation ABG results: ABG ABG pH 7.42 pH Units (7.32-7.45) 10/03/16 04:03 ABG pCO2 59 mmHg (35-45) H 10/03/16 04:03 ABG pO2 99 mmHg (85-104) 10/03/16 04:03 ABG O2 Saturation 98 % (95-98) 10/03/16 04:03 - Impressions Impressions Chest X-Ray 10/05/16 11:11 IMPRESSION: No significant change in appearance of right upper lobe pneumonia, with small right pleural effusion. Underlying pulmonary emphysema noted D/ / Delfino Arias MD / Delfino Arias MD Interpreting Provider: Delfino Arias MD Consult Discharge Plan - Plan Referrals: Lauryn Plasencia CNP [Advanced Practice Nurse] - 10/17/16 12:30 pm Prescriptions: Bumetanide [Bumex] 0.5 mg PO DAILY #30 tablet Levofloxacin [Levaquin] 750 mg PO DAILY #5 tablet Lisinopril 2.5 mg PO DAILY #30 tablet Metoprolol [Lopressor] 25 mg PO DAILY #30 tablet <Sanjiv Hernandez T - Last Filed: 10/06/16 17:41> Date of Encounter: 10/06/16 - Constitutional Vitals: Temp Pulse Resp BP Pulse Ox 98.0 F 73 16 111/63 94 10/06/16 16:28 10/06/16 16:28 10/06/16 16:28 10/06/16 16:28 10/06/16 16:28 Internal Medicine: Result - Labs CBC & Chem 7: 10/06/16 05:29 10/05/16 18:42 Labs: Short CBC 10/06/16 Range/Units 05:29 WBC 17.0 H (4.3-11.1) K/mcL Hgb 11.2 L (12.9-16.9) g/dL Hct 34.9 L (37.5-50.1) % Plt Count 423 H (140-400) K/mcL Neutrophils # 12.9 H (1.6-8.9) K/mcL BMP 10/05/16 18:42 Sodium 138 Potassium 4.8 H Chloride 96 L Carbon Dioxide 33 H BUN 17 Creatinine 0.76 Glucose 186 H Calcium 9.0 - ABG Interpretation ABG results: ABG ABG pH 7.42 pH Units (7.32-7.45) 10/03/16 04:03 ABG pCO2 59 mmHg (35-45) H 10/03/16 04:03 ABG pO2 99 mmHg (85-104) 10/03/16 04:03 ABG O2 Saturation 98 % (95-98) 10/03/16 04:03 - Attending Attestation I examined this patient and my medical decision-making was reviewed with the Resident Physician on 10/06/16. I agree with the documented findings, disposition and treatment plan as described except to the extent set forth below. Patient seen and reviewed, examined at bedside 66 M admitted and being managed for H.infleunza pneumonia and severe sepsis, he is also being managed for COPDE. He has CHFrEF (25%) This morning patient reports significant improvement in his cough and hemotysis Patient is s/p bronchoscopy 10/05 with reports showing mucus obstructing the airway and RUL source of bleeding, BAL performed, preliminary results with no growth and AFB negative Physical exam VSS< blood pressure beginning to be up trending, O2 level acceptable, chest exam with RUL rhonchi, no wheezing today, he has trace bilateral ankle edema Labs and Imaging reviewed: Repeat CXR 10/05 with RUL and RLL pneumonia, new R small pleural effusion, Leukocytosis improved this morning. Restart Toprol, D/C vancomycin, sputum/BAL cultures do not show GPC, continue Cefepime, PT/O eval, for possible discharge tomorrow a.m, if clinical course remains stable Rest of details as in resident physicians documentation
--- NOTE | 2016-10-06 17:16 | Pulmonology Progress Note ---
Date of Encounter: 10/06/16 Time of Encounter: 05:00 Assessment and Plan (1) Cough with hemoptysis Current Visit: Yes Status: Acute Patient continued to have some hemoptysis however it is only mild and he had bronchoscopy with evidence of friable mucous membrane and I suspect with coughing estimate reason. However patient will need outpatient follow-up to make sure there is no underlying malignancies. (2) Pneumonia Current Visit: Yes Status: Acute Patient status post bronchoscopy with some improvement and continue antibiotics for at least 7 days. Patient will need a follow-up CAT scan in about 2-3 months to ensure resolution of this pneumonia and there is no underlying other processes such as malignancies Qualifiers: Pneumonia type: due to unspecified organism Laterality: right Lung location: upper lobe of lung Qualified Code(s): J18.1 - Lobar pneumonia, unspecified organism (3) COPD (chronic obstructive pulmonary disease) Current Visit: Yes Status: Chronic Continue current bronchodilators. Qualifiers: COPD type: chronic bronchitis Chronic bronchitis type: simple Qualified Code(s): J41.0 - Simple chronic bronchitis Subjective Principal diagnosis: Shortness of breath and pneumonia Interval history: Patient feels slightly better however continued to have some hemoptysis. He feels he can breathe easier now. Objective PUL Vital signs: Last Vital Signs Temp 98.0 F 10/06/16 16:28 Pulse 73 10/06/16 16:28 Resp 16 10/06/16 16:28 BP 111/63 10/06/16 16:28 Pulse Ox 94 10/06/16 16:28 General appearance: no acute distress Eyes: nonicteric ENT: oropharynx moist Mallampati (class): 3 Neck: supple, no lymphadenopathy Effort: mildly labored Auscultation: left: diminished breath sounds, right: wheezes Percussion: bilateral: not dull Cardiovascular: regular rate and rhythm Gastrointestinal: normoactive bowel sounds, non-distended Extremities: no cyanosis normal mental status, non-focal exam mood appropriate Results - Laboratory Findings CBC and BMP: 10/06/16 05:29 10/05/16 18:42 ABG ABG pH 7.42 pH Units (7.32-7.45) 10/03/16 04:03 ABG pCO2 59 mmHg (35-45) H 10/03/16 04:03 ABG pO2 99 mmHg (85-104) 10/03/16 04:03 ABG O2 Saturation 98 % (95-98) 10/03/16 04:03 Abnormal lab findings: Abnormal lab results WBC 17.0 K/mcL (4.3-11.1) H 10/06/16 05:29 RBC 3.54 M/mcL (4.19-5.50) L 10/06/16 05:29 Hgb 11.2 g/dL (12.9-16.9) L 10/06/16 05:29 Hct 34.9 % (37.5-50.1) L 10/06/16 05:29 Plt Count 423 K/mcL (140-400) H 10/06/16 05:29 Immature Gran % 4.8 % (0-4) H 10/05/16 03:39 Band Neutrophils % 10.0 % (0-4) H 10/01/16 00:32 Neutrophils # 12.9 K/mcL (1.6-8.9) H 10/06/16 05:29 Eosinophils # 0.7 K/mcL (0.0-0.6) H 10/06/16 05:29 Nucleated RBCs/100 WBC 0.1 /100 WBC (0) H 10/05/16 03:39 Reactive Lymphocytes Present (Not Present) A 10/06/16 05:29 Toxic Granulation Present (Not Present) A 10/05/16 03:39 Large Platelets Present (Not Present) A 10/04/16 04:48 ABG pCO2 59 mmHg (35-45) H 10/03/16 04:03 ABG HCO3 38.3 mEQ/L (21-27) H 10/03/16 04:03 ABG Total CO2 40.1 mEq/L (20-26) H 10/03/16 04:03 ABG Base Excess 11.9 mEq/L (-2.0 to 3.0) H 10/03/16 04:03 ABG Hematocrit 32 % (35-51) L 10/02/16 05:55 Glucose 153 mg/dL (60-95) H 10/02/16 05:55 Potassium 4.8 mEq/L (3.5-4.5) H 10/05/16 18:42 Chloride 96 mEq/L (98-109) L 10/05/16 18:42 Carbon Dioxide 33 mEq/L (19-29) H 10/05/16 18:42 Glucose 186 mg/dL (70-99) H 10/05/16 18:42 POC Glucose 168 (58-89) H 10/04/16 20:20 Lactic Acid 2.4 mmol/L (0.5-2.2) H 10/02/16 15:54 AST 50 Units/L (5-34) H 10/03/16 04:49 Serum Total Protein 5.4 g/dL (6.0-8.3) L 10/03/16 04:49 Albumin 1.9 g/dL (3.5-5.0) L 10/03/16 04:49 Albumin/Globulin Ratio 0.5 (1.1-2.2) L 10/03/16 04:49 Fluid Appearance Hazy (Clear) A 10/05/16 08:20 - Microbiology Findings Microbiology Findings: Microbiology, Last 48 Hours 10/05/16 08:20 Gram Stain - Final Right Upper Lobe Lung Respiratory Culture - Preliminary Normal upper respiratory tract ranjeet. No apparent pathogens isolated. 10/05/16 08:20 Acid Fast Stain - Final Right Upper Lobe Lung 10/04/16 22:20 Sputum Culture - Preliminary Sputum - Clinical Findings Intake & Output: Intake & Output 10/06/16 10/06/16 10/06/16 07:59 15:59 23:59 Intake Total 100 / 100 587 / 587 Output Total 450 / 450 425 / 425 Balance -350 / -350 162 / 162 Weight 68.44 kg 68.44 kg Consult Discharge Plan - Plan Referrals: Lauryn Plasencia, REINALDO [Advanced Practice Nurse] - 10/17/16 12:30 pm Prescriptions: Bumetanide [Bumex] 0.5 mg PO DAILY #30 tablet Levofloxacin [Levaquin] 750 mg PO DAILY #5 tablet Lisinopril 2.5 mg PO DAILY #30 tablet Metoprolol [Lopressor] 25 mg PO DAILY #30 tablet
[2016-10-07] MEDS: Ipratropium/Albuterol Neb 3 ML IH SCH ×6 (03:21→23:56)
[2016-10-07] MEDS: *HR* Enoxaparin 40 MG/0.4 ML SYRINGE SQ SCH (04:08)
[2016-10-07 06:25] LABS: Hemoglobin 11.8 g/dL (12.9-16.9); Mean Corpuscular HGB Conc 31.9 g/dL (31.6-35.5); Mean Corpuscular Hemoglobin 31.1 pg (28.0-33.3); Mean Corpuscular Volume 97.4 fL (83.0-100.0); Mean Platelet Volume 10.2 fL (9.4-12.4); Platelet Count 510 K/mcL (140-400)
[2016-10-07 06:27] LABS: BUN/Creatinine Ratio 24 (6-26); Blood Urea Nitrogen 17 mg/dL (8-26); Calcium 8.8 mg/dL (8.6-10.8); Carbon Dioxide 39 mEq/L (19-29); Chloride 95 mEq/L (98-109); Glucose 132 mg/dL (70-99); Osmolality,Calculated 289 (280-300); Potassium 4.5 mEq/L (3.5-4.5); Sodium 138 mEq/L (136-145); eGFR For African Americans > 60 (> 60); eGFR For Non-African Americans > 60 (> 60)
[2016-10-07] MEDS: Bumetanide 1 MG TABLET PO SCH (08:20)
[2016-10-07] MEDS: predniSONE 20 MG TABLET PO SCH (08:20)
[2016-10-07] MEDS: Aspirin 81 MG TAB.CHEW PO SCH (08:21)
[2016-10-07] MEDS: Metoprolol XL (24 HR) Succ 25 MG TAB.ER.24H PO SCH (08:21)
[2016-10-07 08:39] LABS: Eosinophils # 0.3 K/mcL (0.0-0.6); Lymphocytes # 1.7 K/mcL (0.6-4.6); Monocytes # 2.1 K/mcL (0.0-1.3); Platelet Estimate Increased (Normal)
[2016-10-07 08:40] LABS: Anisocytosis 1+ (Not Present); Large Platelets Present (Not Present)
[2016-10-07] MEDS ORDERED: Metoprolol XL (24 HR) Succ 25 MG TAB.ER.24H PO SCH (09:00)
--- NOTE | 2016-10-07 09:22 | Pulmonology Progress Note ---
Date of Encounter: 10/07/16 Time of Encounter: 09:20 Assessment and Plan (1) Cough with hemoptysis Current Visit: Yes Status: Acute Patient status post bronchoscopy, results are pending. He notes cessation of hemoptysis. Obviously, this patient has COPD and is receiving appropriate treatment for the same. If cultures are negative I would recommend discontinuation of antibiotic therapy. Continue all other measures. Code(s): R04.2 - Hemoptysis SNOMED Code(s): 43083237 Subjective Principal diagnosis: Shortness of breath and pneumonia Interval history: Patient has not experienced any additional hemoptysis since yesterday. He notes modest improvement of his sense of well-being, reduction in cough and chest congestion. He denied any other specific complaints. Objective PUL Vital signs: Last Vital Signs Temp 98 F 10/07/16 07:45 Pulse 70 10/07/16 07:45 Resp 16 10/07/16 07:45 BP 120/80 10/07/16 07:45 Pulse Ox 98 10/07/16 07:45 General appearance: no acute distress Eyes: nonicteric ENT: oropharynx moist Neck: supple Auscultation: bilateral: diminished breath sounds Cardiovascular: regular rate and rhythm Gastrointestinal: normoactive bowel sounds Extremities: no cyanosis, edema Musculoskeletal: no deformities non-focal exam Results - Laboratory Findings CBC and BMP: 10/07/16 05:41 10/07/16 05:41 ABG ABG pH 7.42 pH Units (7.32-7.45) 10/03/16 04:03 ABG pCO2 59 mmHg (35-45) H 10/03/16 04:03 ABG pO2 99 mmHg (85-104) 10/03/16 04:03 ABG O2 Saturation 98 % (95-98) 10/03/16 04:03 Abnormal lab findings: Abnormal lab results WBC 17.1 K/mcL (4.3-11.1) H 10/07/16 05:41 RBC 3.80 M/mcL (4.19-5.50) L 10/07/16 05:41 Hgb 11.8 g/dL (12.9-16.9) L 10/07/16 05:41 Hct 37.0 % (37.5-50.1) L 10/07/16 05:41 Plt Count 510 K/mcL (140-400) H 10/07/16 05:41 Immature Gran % 4.8 % (0-4) H 10/05/16 03:39 Band Neutrophils % 10.0 % (0-4) H 10/01/16 00:32 Neutrophils # 13.0 K/mcL (1.6-8.9) H 10/07/16 05:41 Monocytes # 2.1 K/mcL (0.0-1.3) H 10/07/16 05:41 Nucleated RBCs/100 WBC 0.1 /100 WBC (0) H 10/05/16 03:39 Reactive Lymphocytes Present (Not Present) A 10/06/16 05:29 Toxic Granulation Present (Not Present) A 10/05/16 03:39 Platelet Estimate Increased (Normal) H 10/07/16 05:41 Large Platelets Present (Not Present) A 10/07/16 05:41 Anisocytosis 1+ (Not Present) A 10/07/16 05:41 ABG pCO2 59 mmHg (35-45) H 10/03/16 04:03 ABG HCO3 38.3 mEQ/L (21-27) H 10/03/16 04:03 ABG Total CO2 40.1 mEq/L (20-26) H 10/03/16 04:03 ABG Base Excess 11.9 mEq/L (-2.0 to 3.0) H 10/03/16 04:03 ABG Hematocrit 32 % (35-51) L 10/02/16 05:55 Glucose 153 mg/dL (60-95) H 10/02/16 05:55 Chloride 95 mEq/L (98-109) L 10/07/16 05:41 Carbon Dioxide 39 mEq/L (19-29) H 10/07/16 05:41 Glucose 132 mg/dL (70-99) H 10/07/16 05:41 POC Glucose 168 (58-89) H 10/04/16 20:20 Lactic Acid 2.4 mmol/L (0.5-2.2) H 10/02/16 15:54 AST 50 Units/L (5-34) H 10/03/16 04:49 Serum Total Protein 5.4 g/dL (6.0-8.3) L 10/03/16 04:49 Albumin 1.9 g/dL (3.5-5.0) L 10/03/16 04:49 Albumin/Globulin Ratio 0.5 (1.1-2.2) L 10/03/16 04:49 Fluid Appearance Hazy (Clear) A 10/05/16 08:20 - Microbiology Findings Microbiology Findings: Microbiology, Last 48 Hours 10/05/16 08:20 Gram Stain - Final Right Upper Lobe Lung Respiratory Culture - Final Normal upper respiratory tract ranjeet. No apparent pathogens isolated. 10/05/16 08:20 Acid Fast Stain - Final Right Upper Lobe Lung - Clinical Findings Intake & Output: Intake & Output 10/06/16 10/07/16 10/07/16 23:59 07:59 15:59 Intake Total 520 / 520 Output Total 950 / 950 400 / 400 375 / 375 Balance -430 / -430 -400 / -400 -375 / -375 Weight 67.8 kg Consult Discharge Plan - Plan Referrals: Lauryn Plasencia, FING[facility] [employer]BLER [Advanced Practice Nurse] - 10/17/16 12:30 pm Prescriptions: Bumetanide [Bumex] 0.5 mg PO DAILY #30 tablet Levofloxacin [Levaquin] 750 mg PO DAILY #5 tablet Lisinopril 2.5 mg PO DAILY #30 tablet Metoprolol [Lopressor] 25 mg PO DAILY #30 tablet
[2016-10-07] MEDS ORDERED: Bumetanide 1 MG TABLET PO ONE (10:48)
--- NOTE | 2016-10-07 10:51 | Internal Med Progress Note ---
Date of Encounter: 10/07/16 Time of Encounter: 09:40 - Assessment and plan (1) Sepsis Current Visit: Yes Status: Acute Assessment and plan: Patient admitted with severe sepsis with hypotension, lactic acidosis, leukocytosis Source of infection of H.infleunza multifocal pneumonia the R upper and R middle lobes. Admitting blood culture 09/29 with H.influenza Repeat blood culture 10/03, negative no growth He received Ceftriaxone 2g daily for 6 days Escalated to Cefepime and vancomycin 10/06 due to worsening clinical status vancomycin discontinued 10/06 p.m after final BAL cultures Leukocytosis initially worsened, now stable at 17, possibly due to steroids Patient has made significant improvement Continue current care Qualifiers: Sepsis type: sepsis due to unspecified organism Qualified Code(s): A41.9 - Sepsis, unspecified organism (2) Pneumonia Current Visit: Yes Status: Acute Assessment and plan: Secondary to H.infleunza Chest x-ray and CT revealed multifocal pneumonia in the right upper and middle lobes. s/p bronchoscopy 10/05 with bilateral purulent sputum in the airways. Bleeding source was found in the right upper lobe. Friable mucosa was seen as well. BAL AFB smear negative AFB smear from sputum negativeX2 TB quantiferon was sent out and pending Patient repeat CXR 10/05 shows stable infiltrates and mild pleural effusion Continue antibiotics He will need repeat CT as out-patient to establish clearance Pulmonology input appreciated Qualifiers: Pneumonia type: due to Haemophilus influenzae Laterality: right Lung location: upper lobe of lung Qualified Code(s): J14 - Pneumonia due to Hemophilus influenzae (3) Acute exacerbation of chronic obstructive airways disease Current Visit: Yes Status: Acute Assessment and plan: Improved significantly De-escalate prednisone back to home dose he has received 40mg daily for 5 days He is steroid dependent, and on 5mg bid at home, resume same, starting 10/08 Continue duonebs prn He is on oxygen at home, requirement is not increasing, continue O2 supplement (4) Hyperlipidemia Current Visit: Yes Status: Chronic Assessment and plan: Continue high intensity atorvastatin Qualifiers: Hyperlipidemia type: unspecified Qualified Code(s): E78.5 - Hyperlipidemia , unspecified (5) Hyperglycemia Current Visit: Yes Status: Acute Assessment and plan: Possibly secondary to steroids A1C 06/2016 was 5.7% Continue to monitor (6) HTN (hypertension) Current Visit: Yes Status: Chronic Assessment and plan: Hypotensive on admission, responded to fluids BP meds were held, as well as diuretics All have been restarted except Imdur Continue to monitor and adjust medications prn Qualifiers: Hypertension type: essential hypertension Qualified Code(s): I10 - Essential (primary) hypertension (7) Coronary artery disease Current Visit: Yes Status: Chronic Assessment and plan: Chronic, stable, continue ASA,BB, ACEI Qualifiers: Coronary Disease-Associated Artery/Lesion type: unspecified vessel or lesion type [place] vs. transplanted heart: [place] heart Associated angina: without angina Qualified Code(s): I25.10 - Atherosclerotic heart disease of [place] coronary artery without angina pectoris (8) CHF (congestive heart failure) Current Visit: Yes Status: Chronic Assessment and plan: Echocardiogram revealed LVEF 25%. On 03/10/2014 LVEF was 40-45% Patient has a history of CAD with CABG x4 ischemic cardiomyopathy which may be contributing to decreased LVEF. Cardiology was consulted. RAYMOND inhibitor was started, which would be held for SBP less than 100. Cardiology will follow up in the outpatient setting He developed leg swelling possibly from IVF given for hypotension on arrival He has been started on BUmex Increase dose from 0.5mg bee to 1mg daily today Continue to monitor Obtain Doppler of E to r/o DVT of LE. Qualifiers: Congestive heart failure type: combined Congestive heart failure chronicity : chronic Qualified Code(s): I50.42 - Chronic combined systolic (congestive) and diastolic (congestive) heart failure - Subjective Interval history: 66 M being managed for severe sepsis secondary to H.infleunzae pneumonia, COPDE , CHFrEF Seen and examined at the bedside He reports his leg swelling is worse, L>R, and also reports pain in his calf on the left His cough and hemoptysis has almost resolved He is s/p bronch 09/23 with friable mucosa and mucus extraction, BAL microbilogy negative so far He denies any other complains He is still awaiting PT/OT eval - Constitutional Vitals: Temp Pulse Resp BP Pulse Ox 98 F 70 16 120/80 98 10/07/16 07:45 10/07/16 07:45 10/07/16 07:45 10/07/16 07:45 10/07/16 07:45 General appearance: Present: A&O X 3, pleasant, answers questions appropriately. Absent: no acute distress - Head Head exam: Present: atraumatic, normocephalic - Eye Eye exam: Present: PERRL, conjuntiva pink, sclera anicteric Pupils: Present: PERRL - Neck Neck exam general surgery: Present: supple, trachea midline. Absent: lymphadenopathy - Respiratory Respiratory exam: Present: CTAB. Absent: accessory muscle use, rales, rhonchi, wheezes - Cardiovascular Cardiovascular exam: Present: RRR, +S1, +S2. Absent: diastolic murmur, gallop, rubs, systolic murmur - GI/Abdominal GI/Abdominal exam: Present: normal bowel sounds, soft, no peritoneal signs. Absent: distended, tenderness - Extremities Exam Additional comments: Bilateral pitting pedal edema up to the ankle, L>R Internal Medicine: Result - Labs CBC & Chem 7: 10/07/16 05:41 10/07/16 05:41 Labs: Short CBC 10/07/16 Range/Units 05:41 WBC 17.1 H (4.3-11.1) K/mcL Hgb 11.8 L (12.9-16.9) g/dL Hct 37.0 L (37.5-50.1) % Plt Count 510 H (140-400) K/mcL Neutrophils # 13.0 H (1.6-8.9) K/mcL BMP 10/07/16 05:41 Sodium 138 Potassium 4.5 Chloride 95 L Carbon Dioxide 39 H BUN 17 Creatinine 0.72 Glucose 132 H Calcium 8.8 - ABG Interpretation ABG results: ABG ABG pH 7.42 pH Units (7.32-7.45) 10/03/16 04:03 ABG pCO2 59 mmHg (35-45) H 10/03/16 04:03 ABG pO2 99 mmHg (85-104) 10/03/16 04:03 ABG O2 Saturation 98 % (95-98) 10/03/16 04:03 Consult Discharge Plan - Plan Referrals: Lauryn Plasencia, REINALDO [Advanced Practice Nurse] - 10/17/16 12:30 pm Prescriptions: Bumetanide [Bumex] 0.5 mg PO DAILY #30 tablet Levofloxacin [Levaquin] 750 mg PO DAILY #5 tablet Lisinopril 2.5 mg PO DAILY #30 tablet Metoprolol [Lopressor] 25 mg PO DAILY #30 tablet
[2016-10-07] MEDS: Cefepime HCl 2,000 MG in D5% in Water (Mini-Bag+) 100 ML IVPB SCH ×2 (11:21→16:58)
[2016-10-07] MEDS ORDERED: predniSONE 5 MG TABLET PO SCH (17:00)
[2016-10-08] MEDS: Cefepime HCl 2,000 MG in D5% in Water (Mini-Bag+) 100 ML IVPB SCH ×2 (00:11→07:51)
[2016-10-08] MEDS: Ipratropium/Albuterol Neb 3 ML IH SCH ×3 (04:11→11:57)
[2016-10-08 04:55] LABS: Hematocrit 36.3 % (37.5-50.1); Hemoglobin 11.5 g/dL (12.9-16.9); Mean Corpuscular HGB Conc 31.7 g/dL (31.6-35.5); Mean Corpuscular Hemoglobin 30.9 pg (28.0-33.3); Mean Corpuscular Volume 97.6 fL (83.0-100.0); Platelet Count 542 K/mcL (140-400); Red Blood Count 3.72 M/mcL (4.19-5.50); Red Cell Distribution Width 13.9 % (11.5-14.5)
[2016-10-08 04:58] LABS: BUN/Creatinine Ratio 28 (6-26); Blood Urea Nitrogen 20 mg/dL (8-26); Calcium 8.5 mg/dL (8.6-10.8); Carbon Dioxide 39 mEq/L (19-29); Chloride 97 mEq/L (98-109); Glucose 92 mg/dL (70-99); Osmolality,Calculated 292 (280-300); Potassium 4.4 mEq/L (3.5-4.5); Sodium 140 mEq/L (136-145); eGFR For African Americans > 60 (> 60); eGFR For Non-African Americans > 60 (> 60)
[2016-10-08] MEDS: *HR* Enoxaparin 40 MG/0.4 ML SYRINGE SQ SCH (05:30)
[2016-10-08 05:37] LABS: Monocytes # 0.3 K/mcL (0.0-1.3); Neutrophils # 14.9 K/mcL (1.6-8.9); Platelet Estimate Increased (Normal)
[2016-10-08 06:58] VITALS: BP 123/65
[2016-10-08] MEDS: Metoprolol XL (24 HR) Succ 25 MG TAB.ER.24H PO SCH (07:50)
[2016-10-08] MEDS: Aspirin 81 MG TAB.CHEW PO SCH (07:52)
[2016-10-08] MEDS ORDERED: Bumetanide 1 MG TABLET PO SCH (09:00)
[2016-10-08] MEDS ORDERED: predniSONE 5 MG TABLET PO SCH (09:00)
--- NOTE | 2016-10-08 09:10 | Pulmonology Progress Note ---
Date of Encounter: 10/08/16 Time of Encounter: 09:07 Assessment and Plan (1) Cough with hemoptysis Current Visit: Yes Status: Acute Patient status post bronchoscopy, cultures negative, cytology pending. He notes cessation of hemoptysis. Obviously, this patient has COPD and is receiving appropriate treatment for the same. If cultures are negative I would recommend discontinuation of antibiotic therapy. Continue all other measures. Given improvement in patient's clinical respiratory status, from my perspective , he may be released from the hospital. He he cannot follow up with outpatient pulmonary service at [facility]. Please call if any questions Vicente West [phone] Code(s): R04.2 - Hemoptysis SNOMED Code(s): 00176629 Subjective Principal diagnosis: Shortness of breath and pneumonia Interval history: Patient has not experienced any additional hemoptysis over the past 48 hours. He notes modest improvement of his sense of well-being, reduction in cough and chest congestion and improving activity tolerance. He denied any other specific complaints. Objective PUL Vital signs: Last Vital Signs Temp 98.2 F 10/08/16 06:51 Pulse 60 10/08/16 06:51 Resp 18 10/08/16 07:49 BP 123/65 10/08/16 06:51 Pulse Ox 96 10/08/16 07:49 General appearance: no acute distress Eyes: nonicteric ENT: oropharynx moist Neck: supple Effort: normal Auscultation: bilateral: diminished breath sounds, rhonchi Cardiovascular: regular rate and rhythm Gastrointestinal: normoactive bowel sounds Integumentary: normal Extremities: no cyanosis normal mental status, non-focal exam Results - Laboratory Findings CBC and BMP: 10/08/16 03:35 10/08/16 03:35 ABG ABG pH 7.42 pH Units (7.32-7.45) 10/03/16 04:03 ABG pCO2 59 mmHg (35-45) H 10/03/16 04:03 ABG pO2 99 mmHg (85-104) 10/03/16 04:03 ABG O2 Saturation 98 % (95-98) 10/03/16 04:03 Abnormal lab findings: Abnormal lab results WBC 16.6 K/mcL (4.3-11.1) H 10/08/16 03:35 RBC 3.72 M/mcL (4.19-5.50) L 10/08/16 03:35 Hgb 11.5 g/dL (12.9-16.9) L 10/08/16 03:35 Hct 36.3 % (37.5-50.1) L 10/08/16 03:35 Plt Count 542 K/mcL (140-400) H 10/08/16 03:35 Immature Gran % 4.8 % (0-4) H 10/05/16 03:39 Band Neutrophils % 6.0 % (0-4) H 10/08/16 03:35 Metamyelocytes % 2.0 % (0) H 10/08/16 03:35 Neutrophils # 14.9 K/mcL (1.6-8.9) H 10/08/16 03:35 Nucleated RBCs/100 WBC 0.1 /100 WBC (0) H 10/05/16 03:39 Reactive Lymphocytes Present (Not Present) A 10/06/16 05:29 Toxic Granulation Present (Not Present) A 10/05/16 03:39 Platelet Estimate Increased (Normal) H 10/08/16 03:35 Large Platelets Present (Not Present) A 10/07/16 05:41 Anisocytosis 1+ (Not Present) A 10/07/16 05:41 ABG pCO2 59 mmHg (35-45) H 10/03/16 04:03 ABG HCO3 38.3 mEQ/L (21-27) H 10/03/16 04:03 ABG Total CO2 40.1 mEq/L (20-26) H 10/03/16 04:03 ABG Base Excess 11.9 mEq/L (-2.0 to 3.0) H 10/03/16 04:03 ABG Hematocrit 32 % (35-51) L 10/02/16 05:55 Glucose 153 mg/dL (60-95) H 10/02/16 05:55 Chloride 97 mEq/L (98-109) L 10/08/16 03:35 Carbon Dioxide 39 mEq/L (19-29) H 10/08/16 03:35 BUN/Creatinine Ratio 28 (6-26) H 10/08/16 03:35 POC Glucose 168 (58-89) H 10/04/16 20:20 Lactic Acid 2.4 mmol/L (0.5-2.2) H 10/02/16 15:54 Calcium 8.5 mg/dL (8.6-10.8) L 10/08/16 03:35 AST 50 Units/L (5-34) H 10/03/16 04:49 Serum Total Protein 5.4 g/dL (6.0-8.3) L 10/03/16 04:49 Albumin 1.9 g/dL (3.5-5.0) L 10/03/16 04:49 Albumin/Globulin Ratio 0.5 (1.1-2.2) L 10/03/16 04:49 Fluid Appearance Hazy (Clear) A 10/05/16 08:20 - Microbiology Findings Microbiology Findings: Microbiology, Last 48 Hours 10/04/16 22:20 Sputum Culture - Final Sputum 10/05/16 08:20 Gram Stain - Final Right Upper Lobe Lung Respiratory Culture - Final Normal upper respiratory tract ranjeet. No apparent pathogens isolated. - Clinical Findings Intake & Output: Intake & Output 10/07/16 10/08/16 10/08/16 23:59 07:59 15:59 Intake Total 660 / 660 220 / 220 360 / 360 Output Total 500 / 500 400 / 400 Balance 160 / 160 -180 / -180 360 / 360 Weight 70.756 kg Consult Discharge Plan - Plan Referrals: Lauryn Plasencia, REINALDO [Advanced Practice Nurse] - 10/17/16 12:30 pm Prescriptions: Bumetanide [Bumex] 0.5 mg PO DAILY #30 tablet Levofloxacin [Levaquin] 750 mg PO DAILY #5 tablet Lisinopril 2.5 mg PO DAILY #30 tablet Metoprolol [Lopressor] 25 mg PO DAILY #30 tablet
--- NOTE | 2016-10-08 10:47 | Discharge Summary ---
Date of Encounter: 10/08/16 Time of Encounter: 08:30 - Discharge Diagnosis (1) Sepsis Priority: Primary Status: Resolved Comments: Patient admitted with severe sepsis with hypotension, lactic acidosis, leukocytosis Source of infection of H.infleunza multifocal pneumonia the R upper and R middle lobes. Admitting blood culture 09/29 with H.influenza Repeat blood culture 10/03, negative no growth He received Ceftriaxone 2g daily for 6 days Escalated to Cefepime and vancomycin 10/06 due to worsening clinical status vancomycin discontinued 10/06 p.m after final BAL cultures Leukocytosis initially worsened, now stable at 16, possibly due to steroids Patient has made significant improvement Stable for discharge home Qualifiers: Sepsis type: Haemophilus influenzae Qualified Code(s): A41.3 - Sepsis due to Hemophilus influenzae (2) Pneumonia Priority: Primary Status: Acute Comments: Secondary to H.infleunza Chest x-ray and CT revealed multifocal pneumonia in the right upper and middle lobes. s/p bronchoscopy 10/05 with bilateral purulent sputum in the airways. Bleeding source was found in the right upper lobe. Friable mucosa was seen as well. BAL AFB smear negative AFB smear from sputum negativeX2 TB quantiferon was sent out and pending Patient repeat CXR 10/05 shows stable infiltrates and mild pleural effusion Continue antibiotics He will need repeat CT as out-patient to establish clearance Pulmonology follow up as out-patient Qualifiers: Pneumonia type: due to Haemophilus influenzae Laterality: right Lung location: upper lobe of lung Qualified Code(s): J14 - Pneumonia due to Hemophilus influenzae (3) Acute exacerbation of chronic obstructive airways disease Priority: Primary Status: Resolved Comments: Improved significantly he has received 40mg daily for 5 days He is steroid dependent, and on 5mg bid at home, resumed same, starting 10/08, continue same at home (4) Hyperlipidemia Priority: Secondary Status: Chronic Comments: Continue high intensity statin Qualifiers: Hyperlipidemia type: unspecified Qualified Code(s): E78.5 - Hyperlipidemia , unspecified (5) Hyperglycemia Priority: Primary Status: Acute Comments: Possibly secondary to steroids A1C 06/2016 was 5.7% (6) HTN (hypertension) Priority: Secondary Status: Chronic Qualifiers: Hypertension type: essential hypertension Qualified Code(s): I10 - Essential (primary) hypertension (7) Coronary artery disease Priority: Secondary Status: Chronic Qualifiers: Coronary Disease-Associated Artery/Lesion type: unspecified vessel or lesion type [place] vs. transplanted heart: [place] heart Associated angina: without angina Qualified Code(s): I25.10 - Atherosclerotic heart disease of [place] coronary artery without angina pectoris (8) CHF (congestive heart failure) Priority: Secondary Status: Chronic Comments: Echocardiogram revealed LVEF 25%. On 03/10/2014 LVEF was 40-45% Patient has a history of CAD with CABG x4 ischemic cardiomyopathy which may be contributing to decreased LVEF. Cardiology was consulted. RAYMOND inhibitor was started, which was tolerated and will be continued at home Follow up with Cardiology in the outpatient setting Continue bumex at home Qualifiers: Congestive heart failure type: combined Congestive heart failure chronicity : chronic Qualified Code(s): I50.42 - Chronic combined systolic (congestive) and diastolic (congestive) heart failure - Discharge Medications Prescriptions: Bumetanide [Bumex] 0.5 mg PO DAILY #30 tablet Levofloxacin [Levaquin] 750 mg PO DAILY #5 tablet Lisinopril 2.5 mg PO DAILY #30 tablet Metoprolol [Lopressor] 25 mg PO DAILY #30 tablet Home Medications: Montelukast [Singulair] 10 mg PO HS 12/21/14 [History] Albuterol Sulfate [Albuterol Inhaler] 2 puff IH Q4HR #1 hfa.aer.ad 04/28/15 [Rx] Bumetanide [Bumex] 0.5 mg PO DAILY #15 tablet 07/23/16 [Rx] Isosorbide MONOnitrate (24 HR) [Imdur] 60 mg PO DAILY #30 tab.er.24h 07/23/16 [ Rx] Metoprolol XL (24 HR) Succ [Toprol XL] 25 mg PO DAILY #30 tab.er.24h 07/23/16 [ Rx] Budesonide/Formoterol 160/4.5 [Symbicort 160/4.5] 2 puff IH BID 09/30/16 [ History] Ipratropium/Albuterol Neb [Duoneb] 3 ml IH Q6HR 09/30/16 [History] Loratadine [Allergy Relief] 10 mg PO DAILY 09/30/16 [History] Mometasone Furoate [Nasonex] 17 gm NS DAILY 09/30/16 [History] Oxycodone HCl/Acetaminophen [Percocet 5-325 mg Tablet] 1 tab PO Q4H PRN [History] PredniSONE [Joann] 5 - 10 mg PO DAILY 09/30/16 [History] Roflumilast [Daliresp] 500 mcg PO DAILY 09/30/16 [History] Bumetanide [Bumex] 0.5 mg PO DAILY #30 tablet 10/06/16 [Rx] Levofloxacin [Levaquin] 750 mg PO DAILY #5 tablet 10/06/16 [Rx] Lisinopril 2.5 mg PO DAILY #30 tablet 10/06/16 [Rx] Metoprolol [Lopressor] 25 mg PO DAILY #30 tablet 10/06/16 [Rx] Allergies/Adverse Reactions: Allergies Peanuts Allergy (Uncoded 04/28/15 16:46) Anaphylaxis Procedures/tests Complete & Pending: Procedures Performed prior 72 hours Category Date Time Status Venous Doppler [EV venous imaging LE BI] Routine Y 10/07/16 10:48 Ordered Date of admission: 09/30/16 19:23 Primary care physician: Jesse Lemus DO Consults: 09/30/16 18:21 Consult to Cardiology [CONS] Routine Comment: Consulting Provider: Card[facility] [place] Reason for Consult: LVEF severely reduced Call Completed: No 10/04/16 16:30 Consult to Pulmonology [CONS] Routine Consulting Provider: [facility] [place] Reason for Consult: Patient has pneumonia and rising white count Call Completed: Yes 10/06/16 13:29 Consult to Physical Therapy [CONS] Routine Comment: Evaluate, develop and implement POC Reason for Consult: Discharge planning OT [Consult to Occupational Therapy] [CONS] Routine Comment: Evaluate, develop and implement POC Reason for Consult: Discharge planning Discharging clinician: Sanjiv Hernandez Anticipated date of discharge: 10/08/16 - Patient Status Disposition: Home, Self-Care Condition: Fair Functional capacity at discharge: independent ambulation Overall status at discharge: patient is progressing back to baseline - Discharge Instructions Instructions: Chronic Obstructive Pulmonary Disease (DC), Sepsis (DC), Pneumonia (DC) Follow Up With: Lauryn Plasencia CNP [Advanced Practice Nurse] - 10/17/16 12:30 pm Additional Instructions: FOLLOW UP WITH CARDIOLOGY, PULMONOLOGY AND YOUR PCP - Diet and Activity Activity: resume usual activities as tolerated, wear oxygen at all times Diet: low fat, low cholesterol, low salt diet Interval History: See below Hospital course: Mr. Chase is a 66 year old male with chronic hypoxic respiratory failure secondary to steroid dependent COPD, coronary artery disease, CHF with reduced ejection fraction 25%, hypertension, hyperlipidemia and history of tobacco abuse. He was admitted for management of sepsis secondary to Haemophilus influenzae, associated Haemophilus influenza pneumonia, COPD exacerbation. Patient on admission had fever with lactate 4.3, leukocytosis of 14.4 thousand, and multifocal pneumonia in the right upper and right middle lobes. The patient also had complained of productive cough, shortness of breath night sweats wheezing and fatigue. Due to the location of his pneumonia and his presenting symptoms patient was admitted to rule out tuberculosis infection. TB workup was negative including AFB smear 3 from sputum and a bronchoalveolar lavage The patient initially made some improvement, but his white count continued to trend up, and his hemoptysis worsened, necessitating a pulmonology consult. He had bronchoscopy on 10/05/16, which revealed friable mucosa and thick sputum obstructing his airway He was seen by cardiology during this admission and was started on low dose ACEI due to CHFrEF He developed pedal edema, possibly secondary to IVF received for his severe sepsis, improving with restarting Bumex. Doppler of LE ruled out DVT Patient is seen at bedside this morning, clinically stable and ambulatory and safe for discharge home Complete antibiotics at home, resume his home dose of steroids, continue O2 Bumex has been increased to 1mg daily, encouraged to follow up with PCP for titrating wih renal function and clinical euvolemia He also needs to follow up with pulmonolgy for repeat chest imaging to ensure resolution of pneumonia Rest of details as in each diagnosis - Time Spent with Patient Total time spent providing and/or coordinating discharge services: Greater than 30 minutes (45 minutes spent on patient encounter, chart review, medication reconciliation and documentatin, and patien education) - Constitutional Vitals: Temp Pulse Resp BP Pulse Ox 98.2 F 60 18 123/65 96 10/08/16 06:51 10/08/16 06:51 10/08/16 07:49 10/08/16 06:51 10/08/16 07:49 General appearance: Present: A&O X 3, pleasant, no acute distress, answers questions appropriately - Head Head exam: Present: atraumatic, normocephalic - Eye Eye exam: Present: PERRL, conjuntiva pink, sclera anicteric Pupils: Present: PERRL - Neck Neck exam general surgery: Present: supple, trachea midline. Absent: lymphadenopathy - Respiratory Respiratory exam: Present: CTAB. Absent: accessory muscle use, rales, rhonchi, wheezes - Cardiovascular Cardiovascular exam: Present: RRR, +S1, +S2. Absent: diastolic murmur, gallop, rubs, systolic murmur - GI/Abdominal GI/Abdominal exam: Present: normal bowel sounds, soft, no peritoneal signs. Absent: distended, tenderness - Extremities Exam Extremities exam: Present: warm, radial pulses palpable and symetrical. Absent : calf tenderness, cyanotic, pedal edema - Neurological Exam Neurological exam: Present: alert, CN II-XII intact, oriented X3, no focal deficits. Absent: pronater drift, facial droop, speech deficit - Skin Skin exam: Present: dry, intact
== END 2016-10-08 13:04 | disposition home or self-care (01) | DRG 853 ==
LOC: 2ANU → SUATTDRO 23:14 → 2ANU 09-30 14:09 → SUATTDRO 09-30 19:23
PROVIDERS: ADMIT Internal Medicine; ATTEND Internal Medicine
PROC: ENDOBRF (2016-10-05 15:30)

== ENCOUNTER 2017-12-24 18:17 | Inpatient (IN) ==
[2017-12-24] MEDS ORDERED: methylPREDNISolone 125 MG/2 ML VIAL IVP ONE (18:28)
[2017-12-24] MEDS ORDERED: Ipratropium/Albuterol Neb 3 ML IH ONE (18:28)
[2017-12-24] MEDS ORDERED: Ipratropium/Albuterol Neb 3 ML IH STA (18:30)
--- NOTE | 2017-12-24 18:33 | Emergency Department Note ---
Disposition Clinical Impression: COPD (chronic obstructive pulmonary disease) Qualifiers: COPD type: COPD with acute lower respiratory infection Qualified Code(s): J44.0 - Chronic obstructive pulmonary disease with acute lower respiratory infection Disposition: Still a Patient General Adult HPI - General Chief complaint: ED Shortness of Breath/Dyspnea Stated complaint: SHIVANI Time Seen by Provider: 12/24/17 18:28 - History of Present Illness HPI Narrative: ED ATTESTATION NOTE: I examined this patient and my medical decision-making was reviewed with the Resident Physician/DINING ROOM TABLES SET UP ATTENDANT/PA/Student. I have personally performed a face to face evaluation on this patient & I agree with the documented findings, disposition and treatment plan as described except to the extent set forth below. Patient was seen with emergency medicine resident Holden Cruz please see copy of his note for details of this encounter Briefly: 67-year-old male steroid-dependent COPD year presents with at least a day of increasing shortness of breath and chest tightness fatigue. Patient has bilateral expiratory wheezing recently admitted for same. Took 20 mg of prednisone today has speech dyspnea so much that we had a truncate the history. Patient getting double DuoNeb 120 mg of IV Solu-Medrol EKG chest x-ray screening labs. Patient be titrated with supplemental oxygen. Admission anticipated. Provided 30 minutes critical care service for this patient. Disposition pending. Due to the time patient will be signed out to the oncoming ED team of the [address] Richards. Patient be signed out in stable condition. - Related Data Home Medications Medication Instructions Recorded Confirmed Montelukast [Singulair] 10 mg PO HS 12/21/14 11/23/17 Budesonide/Formoterol 160/4.5 2 puff IH BID 09/30/16 11/23/17 [Symbicort 160/4.5] Roflumilast [Daliresp] 500 mcg PO DAILY 09/30/16 11/23/17 Albuterol Sulfate [Proair 90 mcg IH DAILY 11/10/16 11/23/17 Respiclick] Clopidogrel [Plavix] 75 mg PO QAM 03/28/17 11/23/17 Isosorbide MONOnitrate (24 HR) 60 mg PO DAILY 03/28/17 11/23/17 [Imdur] Metoprolol XL (24 HR) Succ [Toprol 25 mg PO DAILY 05/27/17 11/23/17 Xl] Simvastatin [Zocor] 80 mg PO HS 05/27/17 11/23/17 Budesonide/Formoterol 160/4.5 1 puff IH BIDR 11/23/17 11/23/17 [Symbicort 160/4.5] predniSONE [PredniSONE] 5 mg PO DAILY 11/23/17 11/23/17 Previous Rx's Medication Instructions Recorded Lisinopril 2.5 mg PO DAILY #30 tablet 10/06/16 Azithromycin [Zithromax] 250 mg PO DAILY #3 tablet 11/24/17 Cefuroxime PO [Ceftin] 500 mg PO Q12HR #6 tablet 11/24/17 Lactobacillus [Culturelle] 1 each PO BID #6 cap.sprink 11/24/17 predniSONE [PredniSONE] 10 mg PO BIDWM #6 tablet 11/24/17 Allergies Allergy/AdvReac Type Severity Reaction Status Date / Time Peanuts Allergy Anaphylaxis Uncoded 03/28/17 19:59 Past Medical History - Past Medical History Medical history: Reports: arthritis, asthma, CHF, COPD, coronary artery disease , CVA, hyperlipidemia, hypertension, myocardial infarction Surgical history: Reports: angioplasty/stent, coronary bypass (CABG), herniorrhaphy Psychiatric history: Reports: no psych history - Social History Smoking Status: Former smoker Smokeless Tobacco Status: No Alcohol use: Reports: rarely Drug use: Reports: none Course Vital Signs Pulse Rate 82 12/24/17 18:19 Respiratory Rate 18 12/24/17 18:19 Blood Pressure 144/76 12/24/17 18:19 O2 Sat by Pulse Oximetry 97 12/24/17 18:19 Pulse Rate 82 12/24/17 18:19 Respiratory Rate 18 12/24/17 18:19 Blood Pressure 144/76 12/24/17 18:19 O2 Sat by Pulse Oximetry 97 12/24/17 18:19 Oxygen Delivery Oxygen Delivery Nasal Cannula
--- NOTE | 2017-12-24 18:33 | Emergency Department Note ---
Disposition Clinical Impression: Acute exacerbation of chronic obstructive airways disease Disposition: Still a Patient Condition: Good Time of Disposition: 19:06 SOB HPI - General Chief Complaint: ED Shortness of Breath/Dyspnea Stated Complaint: SHIVANI Time Seen by Provider: 12/24/17 18:28 Nursing Notes Reviewed: Yes Vital Signs Reviewed: Yes - History of Present Illness 67-year-old male past medical history of COPD, CAD, with CABG presents emergency Department with shortness of breath. Patient states that he was recently diagnosed with bronchitis of which he was admitted. Patient currently on steroid taper. Took 20 mg of prednisone today. Patient denies chest pain, but does report heaviness in his chest. Denies that this feels like his previous heart attack. He states this is more like his COPD. - Related Data Home Medications Medication Instructions Recorded Confirmed Montelukast [Singulair] 10 mg PO HS 12/21/14 11/23/17 Budesonide/Formoterol 160/4.5 2 puff IH BID 09/30/16 11/23/17 [Symbicort 160/4.5] Roflumilast [Daliresp] 500 mcg PO DAILY 09/30/16 11/23/17 Albuterol Sulfate [Proair 90 mcg IH DAILY 11/10/16 11/23/17 Respiclick] Clopidogrel [Plavix] 75 mg PO QAM 03/28/17 11/23/17 Isosorbide MONOnitrate (24 HR) 60 mg PO DAILY 03/28/17 11/23/17 [Imdur] Metoprolol XL (24 HR) Succ [Toprol 25 mg PO DAILY 05/27/17 11/23/17 Xl] Simvastatin [Zocor] 80 mg PO HS 05/27/17 11/23/17 Budesonide/Formoterol 160/4.5 1 puff IH BIDR 11/23/17 11/23/17 [Symbicort 160/4.5] predniSONE [PredniSONE] 5 mg PO DAILY 11/23/17 11/23/17 Previous Rx's Medication Instructions Recorded Lisinopril 2.5 mg PO DAILY #30 tablet 10/06/16 Azithromycin [Zithromax] 250 mg PO DAILY #3 tablet 11/24/17 Cefuroxime PO [Ceftin] 500 mg PO Q12HR #6 tablet 11/24/17 Lactobacillus [Culturelle] 1 each PO BID #6 cap.sprink 11/24/17 predniSONE [PredniSONE] 10 mg PO BIDWM #6 tablet 11/24/17 Allergies Allergy/AdvReac Type Severity Reaction Status Date / Time Peanuts Allergy Anaphylaxis Uncoded 03/28/17 19:59 All systems ED: reviewed and negative except as stated. Review of Systems: As Per HPI Constitutional: Denies: fever Cardiovascular: Denies: chest pain Respiratory: Reports: cough, dyspnea, wheezes Gastrointestinal: Denies: abdominal pain, nausea, vomiting Musculoskeletal: Denies: back pain, neck pain Past Medical History - Past Medical History Medical history: Reports: arthritis, asthma, CHF, COPD, coronary artery disease , CVA, hyperlipidemia, hypertension, myocardial infarction Surgical history: Reports: angioplasty/stent, coronary bypass (CABG), herniorrhaphy Psychiatric history: Reports: no psych history - Social History Smoking Status: Former smoker Smokeless Tobacco Status: No Alcohol use: Reports: rarely Drug use: Reports: none Physical Exam - General Limitations: other General appearance: in distress (Respiratory, very winded in conversation) - Head Head exam: atraumatic, normocephalic - Eye Eye exam: Present: EOMI - ENT ENT exam: normal oropharynx - Neck Neck exam: Present: trachea midline - Chest Chest inspection: Present: symmetric chest wall rise - Respiratory Respiratory exam: Present: wheezes (Diffuse, decreased aeration) - Cardiovascular Cardiovascular exam: Present: regular rate, normal rhythm, normal heart sounds - Abdominal Exam Abdominal exam: Present: soft, Non-Tender. Absent: distention, guarding, rebound, rigidity - Extremities Exam Extremities exam: Present: normal capillary refill. Absent: tenderness - Back Exam Back exam: Present: full ROM - Neurological Exam Neurological exam: Present: alert, oriented X3 - Psychiatric Psychiatric exam: Present: normal affect, normal mood - Skin Skin exam: Present: warm, dry, intact, normal color. Absent: rash Course Vital Signs Pulse Rate 82 12/24/17 18:19 Respiratory Rate 18 12/24/17 18:19 Blood Pressure 144/76 12/24/17 18:19 O2 Sat by Pulse Oximetry 97 12/24/17 18:19 Pulse Rate 82 12/24/17 18:19 Respiratory Rate 18 12/24/17 18:19 Blood Pressure 144/76 12/24/17 18:19 O2 Sat by Pulse Oximetry 97 12/24/17 18:19 Oxygen Delivery Oxygen Delivery Nasal Cannula Shortness of Breath/Dyspnea - [facility] Narrative Medical decision making narrative: 67-year-old male presents emergency department with concern for shortness of breath, wheezes, dyspneic in conversation.. Patient currently 97% on 2 L of oxygen via nasal cannula. We are providing DuoNeb's for patient. We are also given 125 mg Solu-Medrol IV. Patient artery had 20 mg prednisone orally today. We will obtain EKG, chest x-ray, troponin, CBC, BMP. Patient's clinical course will be evaluated by the night team physician. Refer to their medical decision-making. - EKG Data EKG attestation: Yes I reviewed and interpreted this EKG. EKG results narrative: 18:33 Heart rate 83 bpm, NM interval 145 ms, QRS duration 104 ms, QT 361 ms, normal axis. Sinus rhythm ventricular rate of 82 beats for minute. No acute changes on this EKG when in comparison with a previous one obtained on November 23, 2017. No ischemic ST changes.
[2017-12-24 18:52] LABS: Basophils % 0.2 %; Eosinophils # 0.1 K/mcL (0.0-0.6); Eosinophils % 1.1 %; Hematocrit 43.4 % (37.5-50.1); Hemoglobin 13.8 g/dL (12.9-16.9); Immature Granulocytes % 0.8 % (0-4); Lymphocytes # 1.5 K/mcL (0.6-4.6); Lymphocytes % 15.3 %; Mean Corpuscular HGB Conc 31.8 g/dL (31.6-35.5); Mean Corpuscular Hemoglobin 30.9 pg (28.0-33.3); Mean Corpuscular Volume 97.3 fL (83.0-100.0); Mean Platelet Volume 10.2 fL (9.4-12.4); Monocytes # 0.9 K/mcL (0.0-1.3); Monocytes % 8.5 %; Neutrophils # 7.4 K/mcL (1.6-8.9); Platelet Count 176 K/mcL (140-400); Red Blood Count 4.46 M/mcL (4.19-5.50); Red Cell Distribution Width 14.6 % (11.5-14.5); Segmented Neutrophils % 74.1 %
[2017-12-24 19:21] LABS: BUN/Creatinine Ratio 21 (6-26); Blood Urea Nitrogen 19 mg/dL (8-23); Carbon Dioxide 30 mEq/L (23-29); Chloride 104 mEq/L (98-107); Glucose 133 mg/dL (70-105); Osmolality,Calculated 298 (280-300); Potassium 4.1 mEq/L (3.5-5.1); Sodium 142 mEq/L (136-145); Troponin I 0.03 ng/mL (< 0.04); eGFR For Non-African Americans > 60 (> 60)
--- NOTE | 2017-12-24 20:18 | Emergency Department Note ---
Disposition Clinical Impression: Acute exacerbation of chronic obstructive airways disease COPD (chronic obstructive pulmonary disease) Qualifiers: COPD type: COPD with acute lower respiratory infection Qualified Code(s): J44.0 - Chronic obstructive pulmonary disease with acute lower respiratory infection Disposition: Admitted As Inpatient Condition: Good Time of Disposition: 20:19 SOB HPI - General Chief Complaint: ED Shortness of Breath/Dyspnea Stated Complaint: SHIVANI Time Seen by Provider: 12/24/17 18:28 Source: patient Limitations: other - History of Present Illness Patient was signed out to me by the day team Dr. Neville Jane please review their note for full history and physical. - Related Data Home Medications Medication Instructions Recorded Confirmed Budesonide/Formoterol 160/4.5 2 puff IH BID 09/30/16 12/24/17 [Symbicort 160/4.5] Roflumilast [Daliresp] 500 mcg PO DAILY 09/30/16 12/24/17 Albuterol Sulfate [Proair 90 mcg IH DAILY 11/10/16 12/24/17 Respiclick] Clopidogrel [Plavix] 75 mg PO QAM 03/28/17 12/24/17 Isosorbide MONOnitrate (24 HR) 60 mg PO DAILY 03/28/17 12/24/17 [Imdur] Metoprolol XL (24 HR) Succ [Toprol 25 mg PO DAILY 05/27/17 12/24/17 Xl] Simvastatin [Zocor] 80 mg PO HS 05/27/17 12/24/17 Montelukast [Singulair] 10 mg PO DAILY 12/24/17 12/24/17 predniSONE [PredniSONE] 20 mg PO DAILY 12/24/17 12/24/17 Previous Rx's Medication Instructions Recorded Lisinopril 2.5 mg PO DAILY #30 tablet 10/06/16 Lactobacillus [Culturelle] 1 each PO BID #6 cap.sprink 11/24/17 Allergies Allergy/AdvReac Type Severity Reaction Status Date / Time Peanuts Allergy Anaphylaxis Uncoded 03/28/17 19:59 Constitutional: Denies: fever Cardiovascular: Denies: chest pain Respiratory: Reports: cough, dyspnea, wheezes Gastrointestinal: Denies: abdominal pain, nausea, vomiting Musculoskeletal: Denies: back pain, neck pain Past Medical History - Past Medical History Medical history: Reports: arthritis, asthma, CHF, COPD, coronary artery disease , CVA, hyperlipidemia, hypertension, myocardial infarction Surgical history: Reports: angioplasty/stent, coronary bypass (CABG), herniorrhaphy Psychiatric history: Reports: no psych history - Social History Smoking Status: Former smoker Smokeless Tobacco Status: No Alcohol use: Reports: rarely Drug use: Reports: none Physical Exam - General Limitations: other General appearance: in distress (Respiratory, very winded in conversation) - Respiratory Respiratory exam: Present: wheezes (Bilaterally throughout. Less crackles then when first evaluated.). Absent: respiratory distress Course Vital Signs Pulse Rate 82 12/24/17 18:19 Respiratory Rate 18 12/24/17 18:19 Blood Pressure 144/76 12/24/17 18:19 O2 Sat by Pulse Oximetry 97 12/24/17 18:19 Temperature 98.0 F 12/25/17 03:33 Pulse Rate 84 12/25/17 03:33 Respiratory Rate 16 12/25/17 03:33 Blood Pressure 117/71 12/25/17 03:33 O2 Sat by Pulse Oximetry 97 12/25/17 03:33 Oxygen Delivery Oxygen Delivery Nasal Cannula Shortness of Breath/Dyspnea - [facility] Narrative Medical decision making narrative: Patient's labs came back with no acute abnormalities. EKG had no acute abnormalities. Patient had negative troponin. CO2 is mildly elevated but) his normal. Patient was given double DuoNeb treatment as well as 125 milligrams Solu-Medrol. Patient's wheezing is still present seems a little better than when first evaluated. Patient has not been any respiratory distress. He has had normal saturations greater than 97% well on 2 L of oxygen. This is normal home dose. Patient is most likely having a COPD exacerbation probably from overdoing after his bronchitis. Patient will be admitted to the hospital service for observation for continuous steroids as well as continued DuoNeb treatments. Patient is okay with this plan. He never did need BiPAP during his stay in the emergency department. Patient is admitted in stable condition. I spoke with Dr. Stephens who agreed to admit the patient to their service. Patient met in stable condition Chest X-Ray 12/24/17 18:28 IMPRESSION: No acute cardiopulmonary disease D/ / Will Sexton MD / Will Sexton MD Interpreting Provider: Will Sexton MD - Medical Records Medical records reviewed: Yes I reviewed the patient's medical records. - Lab Data Lab results reviewed: Yes I reviewed the patient's lab results. Result diagrams: 12/24/17 18:28 12/24/17 18:39 Lab Results 12/24/17 12/24/17 12/24/17 Range/Units 18:28 18:39 18:39 WBC 10.0 (4.3-11.1) K/mcL RBC 4.46 (4.19-5.50) M/mcL Hgb 13.8 (12.9-16.9) g/dL Hct 43.4 (37.5-50.1) % MCV 97.3 (83.0-100.0) fL MCH 30.9 (28.0-33.3) pg MCHC 31.8 (31.6-35.5) g/dL RDW 14.6 H (11.5-14.5) % Plt Count 176 (140-400) K/mcL MPV 10.2 (9.4-12.4) fL Immature Gran % 0.8 (0-4) % Seg Neutrophils % 74.1 % Lymphocytes % 15.3 % Monocytes % 8.5 % Eosinophils % 1.1 % Basophils % 0.2 % Neutrophils # 7.4 (1.6-8.9) K/mcL Lymphocytes # 1.5 (0.6-4.6) K/mcL Monocytes # 0.9 (0.0-1.3) K/mcL Eosinophils # 0.1 (0.0-0.6) K/mcL Basophils # 0.0 (0.0-0.2) K/mcL Sodium 142 (136-145) mEq/L Potassium 4.1 (3.5-5.1) mEq/L Chloride 104 (98-107) mEq/L Carbon Dioxide 30 H (23-29) mEq/L BUN 19 (8-23) mg/dL Creatinine 0.92 (0.70-1.30) mg/dL Est GFR ( Amer) > 60 (> 60) Est GFR (Non-Af Amer) > 60 (> 60) BUN/Creatinine Ratio 21 (6-26) Glucose 133 H (70-105) mg/dL Calculated Osmolality 298 (280-300) Lactic Acid 2.2 (0.5-2.2) mmol/L Calcium 9.0 (8.6-10.3) mg/dL Magnesium 2.1 (1.6-2.6) mg/dL Troponin I 0.03 (< 0.04) ng/mL - Radiology Data Radiology results reviewed: Yes I reviewed the patient's radiology results. Attestation Statement - Attestation Attestation: I examined this patient and my medical decision-making was reviewed with the Resident Physician. I agree with the documented findings, disposition and treatment plan as described except to the extent set forth below. Findings consistent with dyspnea. Suspect COPD exacerbation. Bronchodilators, steroids , antibiotics. We will admit for further management of COPD exacerbation.
[2017-12-24] MEDS ORDERED: Naloxone 0.4 MG/ML INJ IVP PRN (20:30)
[2017-12-24] MEDS: *HR* Heparin 5,000 UNIT/ML VIAL SQ SCH (23:47)
[2017-12-25] MEDS ORDERED: MethylPREDNISolone 40 MG/ML VIAL IVP SCH (00:30)
[2017-12-25] MEDS ORDERED: Furosemide 20 MG/2 ML VIAL IVP ONE (01:57)
[2017-12-25 02:14] LABS: Magnesium 2.1 mg/dL (1.6-2.6)
[2017-12-25] MEDS: *HR* Heparin 5,000 UNIT/ML VIAL SQ SCH ×3 (05:58→20:57)
[2017-12-25 06:15] LABS: Basophils % 0.1 %; Hemoglobin 13.1 g/dL (12.9-16.9); Immature Granulocytes % 0.9 % (0-4); Lymphocytes # 0.4 K/mcL (0.6-4.6); Lymphocytes % 5.2 %; Mean Corpuscular Hemoglobin 30.5 pg (28.0-33.3); Mean Corpuscular Volume 95.6 fL (83.0-100.0); Mean Platelet Volume 10.7 fL (9.4-12.4); Monocytes # 0.2 K/mcL (0.0-1.3); Monocytes % 2.5 %; Neutrophils # 7.2 K/mcL (1.6-8.9); Platelet Count 175 K/mcL (140-400); Red Blood Count 4.29 M/mcL (4.19-5.50); Red Cell Distribution Width 14.6 % (11.5-14.5); Segmented Neutrophils % 91.3 %
[2017-12-25 06:33] LABS: Alanine Aminotransferase 14 Units/L (7-52); Albumin 3.7 g/dL (3.5-5.7); Albumin/Globulin Ratio 1.7 (1.1-2.2); Alkaline Phosphatase 72 Units/L (34-104); Aspartate Amino Transferase 13 Units/L (13-39); BUN/Creatinine Ratio 22 (6-26); Bilirubin,Total 0.3 mg/dL (0.3-1.0); Blood Urea Nitrogen 19 mg/dL (8-23); Calcium 9.1 mg/dL (8.6-10.3); Carbon Dioxide 35 mEq/L (23-29); Chloride 100 mEq/L (98-107); Globulin 2.2 g/dL (2.4-3.5); Glucose 149 mg/dL (70-105); Osmolality,Calculated 295 (280-300); Potassium 4.4 mEq/L (3.5-5.1); Sodium 140 mEq/L (136-145); Total Protein 5.9 g/dL (6.4-8.9); eGFR For Non-African Americans > 60 (> 60)
[2017-12-25] MEDS ORDERED: Ipratropium/Albuterol Neb 3 ML IH PRN (08:16)
[2017-12-25] MEDS: Lactobacillus 1 EACH CAP.SPRINK PO SCH ×2 (08:53→20:56)
[2017-12-25] MEDS: Isosorbide MONOnitrate (24 HR) 30 MG TAB.ER.24H PO SCH (08:53)
[2017-12-25] MEDS: Metoprolol XL (24 HR) Succ 50 MG TAB.ER.24H PO SCH (08:54)
[2017-12-25] MEDS: (Roflumilast [Daliresp] 500 MCG) PO SCH (09:01)
--- NOTE | 2017-12-25 09:01 | Internal Med History&Physical ---
Date of Encounter: 12/25/17 Time of Encounter: 00:23 Internal Medicine - H&P: HPI Chief complaint: SOB History of present illness: Mr. Chase is a 67 year old male with a past medical history of COPD, coronary artery disease, ischemic cardiomyopathy, hypertension who presents with history of worsening shortness of breath. Patient states he saw his PCP a month ago for treatment of bronchitis and was put on a prednisone taper as well as a course of levofloxacin. However despite symptoms initially improving, he states that for the past several days is breathing is gotten worse with exertion to the point where he cannot walk from one room to the other without being short of breath. Denies any issues of dyspnea at rest. He reports that he has been on 10 mg of prednisone for the complete month of August and September prior to increasing his dose to 40 mg and tapering. He currently is on home oxygen as needed but has been requiring 2-1/2 L constantly. 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 Denies any fever, chills, chest pain, orthopnea, PND or lower extremity edema. He has noted increased swelling in his face and neck. Past Med Surg Social Fam HX - Past Medical History Medical history: arthritis, asthma, CHF, COPD, coronary artery disease, CVA, hyperlipidemia, hypertension, myocardial infarction Additional medical history: 7 stents placed total. Psychiatric history: no psych history - Past Surgical History Surgical History: angioplasty/stent, coronary bypass (CABG), herniorrhaphy Additional surgical history: 7 stents, 2-CABG - Social History Smoking Status: Former smoker Smokeless Tobacco Status: No Alcohol use: rarely Drug use: none - Family History Mother Adopted: No Living Status: Still Living Hx Family Cardiac Disorders: No Hx Family Respiratory Disorders: No Hx Family Cancer: No Hx Family GI Disorders: No Hx Family Genitourinary Disorders: No Hx Family Endocrine Disorder: No Hx Family Musculoskeletal Disorders: No Hx Family Neuromuscular Disorders: No Hx Family Neurologic Disorders: No Hx Family HEENT Disorders: No Hx Family Autoimmune Disorders: No Hx Family Reproductive Disorders: No Hx Family Psychosocial Disorders: No Hx Family Medical Disorders: No Father History Unknown: Yes Internal Medicine - H&P: Meds Budesonide/Formoterol 160/4.5 [Symbicort 160/4.5] 2 puff IH BID 09/30/16 [ History] Roflumilast [Daliresp] 500 mcg PO DAILY 09/30/16 [History] Lisinopril 2.5 mg PO DAILY #30 tablet 10/06/16 [Rx] Albuterol Sulfate [Proair Respiclick] 90 mcg IH DAILY 11/10/16 [History] Clopidogrel [Plavix] 75 mg PO QAM 03/28/17 [History] Isosorbide MONOnitrate (24 HR) [Imdur] 60 mg PO DAILY 03/28/17 [History] Metoprolol XL (24 HR) Succ [Toprol Xl] 25 mg PO DAILY 05/27/17 [History] Simvastatin [Zocor] 80 mg PO HS 05/27/17 [History] Lactobacillus [Culturelle] 1 each PO BID #6 cap.sprink 11/24/17 [Rx] Montelukast [Singulair] 10 mg PO DAILY 12/24/17 [History] predniSONE [PredniSONE] 20 mg PO DAILY 12/24/17 [History] 3 Allergy/AdvReac Type Severity Reaction Status Date / Time Peanuts Allergy Anaphylaxis Uncoded 03/28/17 19:59 All Systems PM: A 10-system review of systems was performed and is negative for pertinent findings except as documented above in the HPI. - Constitutional Constitutional: no chills, no fever(s), no night sweats - EENT Eyes: no change in vision, no discharge, no pain, no photophobia Ears: no ear discharge, no ear pain, no tinnitus Nose, mouth and throat: no dysphagia, no nasal discharge, no neck pain, no sore throat - Cardiovascular Cardiovascular ROS IM: no chest pain, no diaphoresis, no dyspnea, no lightheadedness, no palpitations, no syncope - Respiratory Respiratory: no cough, no dyspnea, no wheezing, no excessive phlegm production - Gastrointestinal Gastrointestinal: no abdominal pain, no diarrhea, no hematemesis, no hematochezia, no melena, no nausea, no vomiting - Musculoskeletal Musculoskeletal ROS IM: no numbness, no tingling - Integumentary Integumentary IM: no rash, no unusual bruising - Neurological Neurological ROS: no confusion, no convulsions, no focal weakness, no numbness, no tingling, no tremor(s) - Hematologic/Lymphatic Hematologic/Lymphatic: no easy bruising - Constitutional Vitals: Temp Pulse Resp BP Pulse Ox 97.9 F 74 18 143/87 100 12/25/17 07:34 12/25/17 07:34 12/25/17 07:34 12/25/17 07:34 12/25/17 07:34 Exam: General: Alert and oriented Skin:Normal color, no rash, no lesions. HEENT:EOM, pupils equal, round and reactive. Cardiovascular:Normal S1 & S2, no rubs, murmurs or gallops. No JVD. Pulse regular. Lungs: Diffuse expiratory wheezing. Abdomen:Soft, non-tender, no rigidity. Extremities:No deformity, no edema or tenderness, no joint swelling or clubbing. Neurological:Normal cognition and motor skills. Pulses:Carotid and radial pulses normal +2. Rest of the physical exam is non contributory Internal Med - H&P Results - Labs CBC & Chem 7: 12/25/17 05:47 12/25/17 05:47 Labs: Short CBC 12/25/17 Range/Units 05:47 WBC 7.9 (4.3-11.1) K/mcL Hgb 13.1 (12.9-16.9) g/dL Hct 41.0 (37.5-50.1) % Plt Count 175 (140-400) K/mcL Neutrophils # 7.2 (1.6-8.9) K/mcL BMP 12/25/17 05:47 Sodium 140 Potassium 4.4 Chloride 100 Carbon Dioxide 35 H BUN 19 Creatinine 0.87 Glucose 149 H Calcium 9.1 Liver Function 12/25/17 Range/Units 05:47 Total Bilirubin 0.3 (0.3-1.0) mg/dL AST 13 (13-39) Units/L ALT 14 (7-52) Units/L Alkaline Phosphatase 72 (34-104) Units/L Albumin 3.7 (3.5-5.7) g/dL - Assessment and plan (1) Acute exacerbation of chronic obstructive airways disease Current Visit: Yes Status: Acute Assessment and plan: Acute COPD exacerbation with diffuse wheezing appreciated on physical examination. Patient recently finished a prednisone taper as well as antibiotics with levofloxacin. No evidence of a pneumonia. Symptoms may have been triggered by viral infection as patient reports she has been around children who have been coughing. We will continue treatment for COPD exacerbation. Given that patient completed a course of antibiotics 3 days ago will hold off antibiotics for now. Continue methylprednisolone Duo nebs Oxygen (2) Neck swelling Current Visit: Yes Status: Acute Assessment and plan: Patient reports face and neck swelling. Patient has been on steroids now for almost 3 months continuously. 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 Outpatient workup. (3) History of heart failure Current Visit: Yes Status: Chronic Assessment and plan: No evidence of CHF exacerbation at this time. However, given prolonged use of steroids for the past 2-3 months and mineralocorticoid effects, we will give one -time dose of Lasix. (4) HTN (hypertension) Current Visit: No Status: Chronic Assessment and plan: Lipid pressure stable. Continue antihypertensives. Qualifiers: Hypertension type: essential hypertension Qualified Code(s): I10 - Essential (primary) hypertension (5) Coronary artery disease Current Visit: No Status: Chronic Assessment and plan: Continue metoprolol and RAYMOND inhibitor. Qualifiers: Coronary Disease-Associated Artery/Lesion type: unspecified vessel or lesion type [place] vs. transplanted heart: [place] heart Associated angina: without angina Qualified Code(s): I25.10 - Atherosclerotic heart disease of [place] coronary artery without angina pectoris (6) Hyperlipidemia Current Visit: No Status: Chronic Qualifiers: Hyperlipidemia type: unspecified Qualified Code(s): E78.5 - Hyperlipidemia , unspecified - Time Spent With Patient Total time spent is greater than 50% in coordination of care (as documented) at patient's floor/unit and/or counseling patient:
[2017-12-25] MEDS: Ipratropium/Albuterol Neb 3 ML IH SCH ×5 (11:16→23:38)
[2017-12-25] MEDS: Tiotropium 18 MCG inhalation IH SCH (11:16)
[2017-12-25] MEDS: Budesonide/Formoterol 160/4.5 1 PUFF INH IH SCH ×2 (11:40→19:33)
[2017-12-25] MEDS: Azithromycin 250 MG TABLET PO SCH (12:28)
[2017-12-25] MEDS: methylPREDNISolone 125 MG/2 ML VIAL IVP SCH ×3 (12:29→23:15)
[2017-12-25 16:01] LABS: ABG Base Excess 7 mEq/L (-2 to 3); ABG HCO3 34 mEq/L (21-27); ABG Oxygen Saturation 96 % (95-98); ABG PCO2 58 mmHg (35-45); ABG PH 7.38 pH Units (7.32-7.45); ABG PO2 85 mmHg (85-104); ABG TCO2 36 mEq/L (20-26)
[2017-12-25] MEDS ORDERED: Ipratropium/Albuterol Neb 3 ML IH SCH (22:30)
[2017-12-26] MEDS: Ipratropium/Albuterol Neb 3 ML IH SCH ×6 (04:08→23:57)
[2017-12-26] MEDS: methylPREDNISolone 125 MG/2 ML VIAL IVP SCH ×4 (05:34→22:44)
[2017-12-26] MEDS: *HR* Heparin 5,000 UNIT/ML VIAL SQ SCH ×3 (05:34→22:44)
[2017-12-26 06:43] LABS: BUN/Creatinine Ratio 28 (6-26); Blood Urea Nitrogen 25 mg/dL (8-23); Calcium 8.7 mg/dL (8.6-10.3); Carbon Dioxide 33 mEq/L (23-29); Chloride 102 mEq/L (98-107); Glucose 225 mg/dL (70-105); Osmolality,Calculated 301 (280-300); Potassium 3.9 mEq/L (3.5-5.1); Sodium 140 mEq/L (136-145); eGFR For Non-African Americans > 60 (> 60)
[2017-12-26] MEDS: Budesonide/Formoterol 160/4.5 1 PUFF INH IH SCH ×2 (07:50→20:43)
[2017-12-26] MEDS: Tiotropium 18 MCG inhalation IH SCH (07:51)
[2017-12-26] MEDS: Isosorbide MONOnitrate (24 HR) 30 MG TAB.ER.24H PO SCH (09:31)
[2017-12-26] MEDS: Metoprolol XL (24 HR) Succ 50 MG TAB.ER.24H PO SCH (09:31)
[2017-12-26] MEDS: Azithromycin 250 MG TABLET PO SCH (09:31)
[2017-12-26] MEDS: Lactobacillus 1 EACH CAP.SPRINK PO SCH ×2 (09:31→22:45)
[2017-12-26] MEDS: (Roflumilast [Daliresp] 500 MCG) PO SCH (09:32)
--- NOTE | 2017-12-26 12:30 | Internal Med Progress Note ---
Hospitalist Progress Note - Encounter Date of Encounter: 12/26/17 Time of Encounter: 12:25 - Subjective Interval History: Sincerely examined in the room, he reported improved respiratory symptoms, he has less congestion. - Exam Vitals: Temp Pulse Resp BP Pulse Ox 98.2 F 62 17 112/61 92 12/26/17 11:47 12/26/17 11:47 12/26/17 11:47 12/26/17 11:47 12/26/17 11:47 Exam: General: Alert and oriented Skin:Normal color, no rash, no lesions. HEENT:EOM, pupils equal, round and reactive. Cardiovascular:Normal S1 & S2, no rubs, murmurs or gallops. No JVD. Pulse regular. Lungs: Diffuse expiratory wheezing. Abdomen:Soft, non-tender, no rigidity. Extremities:No deformity, no edema or tenderness, no joint swelling or clubbing. Neurological:Normal cognition and motor skills. Pulses:Carotid and radial pulses normal +2. Rest of the physical exam is non contributory - Assessment and Plan (1) Acute exacerbation of chronic obstructive airways disease Current Visit: Yes Status: Acute Assessment and Plan: 67-year-old COPDer Delia with worsening shortness of breath, cough, and congestion. Patient has been hospitalized recently for similar complaints. He was treated and symptoms are relieved. He reported he had been sick again recently due to possible allergy/viral infection. Has been on and off with oral steroids for almost 2-3 months, he develops facial and neck puffiness. - Recent symptoms are consistent with acute exacerbation of COPD. He takes Symbicort, Singulair, and albuterol at home. We will optimize his COPD treatment, started patient on IV steroids, DuoNeb scheduled and and the as needed, continue Symbicort, adding Spiriva and the oral antibiotics. -Check c-ANCA and antitrypsin to rule out vasculitis and antitrypsin deficiency. - Patient symptoms have improved overnight. (2) Hyperlipidemia Current Visit: No Status: Chronic Assessment and Plan: Continue home medications. (3) HTN (hypertension) Current Visit: No Status: Chronic Assessment and Plan: Lipid pressure stable. Continue antihypertensives. (4) Coronary artery disease Current Visit: No Status: Chronic Assessment and Plan: Continue metoprolol and RAYMOND inhibitor. 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 (6) History of heart failure Current Visit: Yes Status: Chronic Assessment and Plan: No evidence of CHF exacerbation at this time. However, given prolonged use of steroids for the past 2-3 months and mineralocorticoid effects, we will give one -time dose of Lasix. DVT Prophylaxis: Heparin subcutaneous. - Time Spent with Patient Total time spent is greater than 50% in coordination of care (as documented) at patient's floor/unit and/or counseling patient: Greater than 35 minutes Plan of Care Discussed with: patient Internal Medicine: Result - Labs CBC & Chem 7: 12/25/17 05:47 12/26/17 05:44 Labs: BMP 12/26/17 05:44 Sodium 140 Potassium 3.9 Chloride 102 Carbon Dioxide 33 H BUN 25 H Creatinine 0.90 Glucose 225 H Calcium 8.7 - ABG Interpretation ABG results: ABG ABG pH 7.38 pH Units (7.32-7.45) 12/25/17 15:56 ABG pCO2 58 mmHg (35-45) H 12/25/17 15:56 ABG pO2 85 mmHg (85-104) 12/25/17 15:56 ABG O2 Saturation 96 % (95-98) 12/25/17 15:56 Consult Discharge Plan - Plan Additional Instructions: Call Sally when you get home to have portable tanks delivered. [phone]. Referrals: Jesse Lemus, [Primary Care Provider] - (2) Hyperlipidemia Qualifiers: Hyperlipidemia type: unspecified Qualified Code(s): E78.5 - Hyperlipidemia, unspecified (3) HTN (hypertension) Qualifiers: Hypertension type: essential hypertension Qualified Code(s): I10 - Essential (primary) hypertension (4) Coronary artery disease Qualifiers: Coronary Disease-Associated Artery/Lesion type: unspecified vessel or lesion type [place] vs. transplanted heart: [place] heart Associated angina: without angina Qualified Code(s): I25.10 - Atherosclerotic heart disease of [place] coronary artery without angina pectoris
[2017-12-27] MEDS ORDERED: *HR* Metoprolol 5 MG/5 ML VIAL IVP ONE (01:52)
[2017-12-27] MEDS: Ipratropium/Albuterol Neb 3 ML IH SCH ×6 (03:55→23:52)
[2017-12-27] MEDS: methylPREDNISolone 125 MG/2 ML VIAL IVP SCH ×3 (04:53→18:09)
[2017-12-27] MEDS: *HR* Heparin 5,000 UNIT/ML VIAL SQ SCH ×3 (04:53→21:17)
[2017-12-27 07:25] LABS: BUN/Creatinine Ratio 29 (6-26); Blood Urea Nitrogen 22 mg/dL (8-23); Calcium 8.7 mg/dL (8.6-10.3); Carbon Dioxide 29 mEq/L (23-29); Chloride 104 mEq/L (98-107); Glucose 145 mg/dL (70-105); Osmolality,Calculated 298 (280-300); Potassium 4.4 mEq/L (3.5-5.1); Sodium 141 mEq/L (136-145); eGFR For Non-African Americans > 60 (> 60)
[2017-12-27] MEDS: Lactobacillus 1 EACH CAP.SPRINK PO SCH ×2 (08:41→21:17)
[2017-12-27] MEDS: Isosorbide MONOnitrate (24 HR) 30 MG TAB.ER.24H PO SCH (08:42)
[2017-12-27] MEDS: Azithromycin 250 MG TABLET PO SCH (08:43)
[2017-12-27] MEDS: Metoprolol XL (24 HR) Succ 50 MG TAB.ER.24H PO SCH (08:43)
--- NOTE | 2017-12-27 10:25 | Pulmonology Consult Note ---
<Michael Villarreal W - Last Filed: 12/27/17 16:54> Date of Encounter: 12/27/17 Medications and Allergies Budesonide/Formoterol 160/4.5 [Symbicort 160/4.5] 2 puff IH BID 09/30/16 [ History] Roflumilast [Daliresp] 500 mcg PO DAILY 09/30/16 [History] Lisinopril 2.5 mg PO DAILY #30 tablet 10/06/16 [Rx] Albuterol Sulfate [Proair Respiclick] 90 mcg IH DAILY 11/10/16 [History] Clopidogrel [Plavix] 75 mg PO QAM 03/28/17 [History] Isosorbide MONOnitrate (24 HR) [Imdur] 60 mg PO DAILY 03/28/17 [History] Metoprolol XL (24 HR) Succ [Toprol Xl] 25 mg PO DAILY 05/27/17 [History] Simvastatin [Zocor] 80 mg PO HS 05/27/17 [History] Lactobacillus [Culturelle] 1 each PO BID #6 cap.sprink 11/24/17 [Rx] Montelukast [Singulair] 10 mg PO DAILY 12/24/17 [History] predniSONE [PredniSONE] 20 mg PO DAILY 12/24/17 [History] 3 Allergy/AdvReac Type Severity Reaction Status Date / Time Peanuts Allergy Anaphylaxis Uncoded 03/28/17 19:59 All Systems: The remainder of the systems were reviewed and are negative Physical Examination Vital Signs: Vital Signs, Last 4 Hours Temp Pulse Resp BP Pulse Ox 12/27/17 16:22 97.5 F L 69 17 116/72 99 Results - Laboratory Findings CBC and BMP: 12/25/17 05:47 12/27/17 06:30 ABG ABG pH 7.38 pH Units (7.32-7.45) 12/25/17 15:56 ABG pCO2 58 mmHg (35-45) H 12/25/17 15:56 ABG pO2 85 mmHg (85-104) 12/25/17 15:56 ABG O2 Saturation 96 % (95-98) 12/25/17 15:56 Abnormal lab findings: Abnormal lab results RDW 14.6 % (11.5-14.5) H 12/25/17 05:47 Lymphocytes # 0.4 K/mcL (0.6-4.6) L 12/25/17 05:47 ABG pCO2 58 mmHg (35-45) H 12/25/17 15:56 ABG HCO3 34 mEq/L (21-27) H 12/25/17 15:56 ABG Total CO2 36 mEq/L (20-26) H 12/25/17 15:56 ABG Base Excess 7 mEq/L (-2 to 3) H 12/25/17 15:56 BUN/Creatinine Ratio 29 (6-26) H 12/27/17 06:30 Glucose 145 mg/dL (70-105) H 12/27/17 06:30 Serum Total Protein 5.9 g/dL (6.4-8.9) L 12/25/17 05:47 Globulin 2.2 g/dL (2.4-3.5) L 12/25/17 05:47 - Clinical Findings Intake & Output: Intake & Output 12/27/17 12/27/17 12/27/17 07:59 15:59 23:59 Output Total 600 / 600 Balance -600 / -120 Consult Discharge Plan - Plan Additional Instructions: Call Sally when you get home to have portable tanks delivered. [phone]. Referrals: Jesse Lemus DO [Primary Care Provider] - - Attending Attestation I examined this patient and my medical decision-making was reviewed with the Resident Physician. I agree with the documented findings, disposition and treatment plan as described except to the extent set forth below. We independently had [id number] contact with the patient Patient seen and examined at bedside Labs, radiology, chart personally reviewed. Impression: 1. Acute on chronic hypoxic respiratory failure 2. AECOPD with high risk features (recurrent exacerbations) 3. CAD 4. Former Smoker Recs: 1. Wean FiO2 to keep saturation greater than 88% around 92% at all times out of bed to chair ambulation and incentive spirometry can all help mitigate the effects of VQ mismatching secondary to atelectasis 2. Agree with IV steroids and azithromycin recommends noncontrasted CT scan of the chest continue scheduled Symbicort and bronchodilators; he will need outpatient pulmonary follow-up for optimization of COPD. Start N- acetylcysteine 600 mg twice a day 3. Cardiology following for this 4. Patient has been in remission for 2 years <Tulio Cole - Last Filed: 12/27/17 17:28> Date of Encounter: 12/27/17 Time of Encounter: 10:30 Assessment and Plan (1) Acute and chronic respiratory failure with hypoxia Current Visit: Yes Status: Acute - secondary to Hx of COPD - on physical exam patient has bilateral expiratory wheezes , and crackles in the lower lobe - most recent ABG showed repsiratory acidosis with metabolic compensation, - currently on solumedrol 40 mg, day 3 of Z pack, and singulair - (2) Acute exacerbation of chronic obstructive airways disease Current Visit: Yes Status: Acute -Patient has a history of COPD and is on 2.5 L of home oxygen. -ON physical examination patient had bilateral respiratory wheezing with some crackles in the lower lobe. -Currently on soluMedrol 40 mg, DuoNeb's PRN, Symbicort 2 puffs twice a day, Singulair. spiriva not recommended in acute flare because it could worsen it. -Currently on 2 L of oxygen satting at 99%. Continue to monitor. - (3) Coronary artery disease Current Visit: No Status: Chronic -Patient has a history of CAD status post CABG and multivessel PCI. He is on home aspirin and Plavix. -He has had some ST-T depression in V4 V6 in his most recent EKG. Cardiology is on board. -Patient has been recommended to continue aspirin and Plavix for minimum of 1 year uninterrupted. Also to be compliant on statins and beta blockers. Qualifiers: Coronary Disease-Associated Artery/Lesion type: unspecified vessel or lesion type [place] vs. transplanted heart: [place] heart Associated angina: without angina Qualified Code(s): I25.10 - Atherosclerotic heart disease of [place] coronary artery without angina pectoris (4) Former smoker Current Visit: Yes Status: Acute -Is a past smoker and smoked for 30 years. he quit 2 years ago. - History of Present Illness Consult date: 12/27/17 Chief complaint: shortness of breath History of present illness: Mr Chase is a 67 yo male with a PMHx of COPD, CAD , ischemic cardiomyopathy, HTN who was admitted to the floor for SOB. Patient saw his PCP a month ago at [facility] and was treated for bronchitis with levofloxacin and prednisone taper. Patient endorses that he felt better initially but then started deteriorating with worsening cough and SOB. He wasn't able to walk from one room to another. 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 He's on symbicort 2 puffs BID, Proair and Singulair as his meds for COPD/Asthma. He tells me that had a PFTs about 3 years ago at [facility]. Patient denies any pets at home, has no exposure to birds or farm animals. 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 and Of note, he was seen Dr French last year in september for an episode of hemoptysis, underwent Bronchoscopy which showed a friable mucous membrane and suspicious RUL lesion . Biopsy of the RUL was not positive for malignancy. BAL grew Mirna Albicans. Chest CT back then showed resolving mediastinal lymph nodes. Patient had an appointment for Lung Cancer screening this Sunday but wasn't able to make it because of worsening SOB and cough. Currently, he's on day 3 of Z pack , solumedrol, symbicort and Singulair. Past Med Surg Social Fam HX - Past Medical History Medical history: arthritis, asthma, CHF, COPD, coronary artery disease, CVA, hyperlipidemia, hypertension, myocardial infarction Additional medical history: 7 stents placed total. Psychiatric history: no psych history - Past Surgical History Surgical History: angioplasty/stent, coronary bypass (CABG), herniorrhaphy Additional surgical history: 7 stents, 2-CABG - Social History Smoking Status: Former smoker Smokeless Tobacco Status: No Alcohol use: rarely Drug use: none - Family History Mother Adopted: No Living Status: Still Living Hx Family Cardiac Disorders: No Hx Family Respiratory Disorders: No Hx Family Cancer: No Hx Family GI Disorders: No Hx Family Genitourinary Disorders: No Hx Family Endocrine Disorder: No Hx Family Musculoskeletal Disorders: No Hx Family Neuromuscular Disorders: No Hx Family Neurologic Disorders: No Hx Family HEENT Disorders: No Hx Family Autoimmune Disorders: No Hx Family Reproductive Disorders: No Hx Family Psychosocial Disorders: No Hx Family Medical Disorders: No Father History Unknown: Yes All Systems: The remainder of the systems were reviewed and are negative Physical Examination Vital Signs: Vital Signs, Last 4 Hours Temp Pulse Resp BP Pulse Ox 12/27/17 08:39 97.7 F 92 19 171/89 96 12/27/17 08:15 16 97 12/27/17 07:24 98.1 F 77 18 150/83 99 General appearance: no acute distress Effort: mildly labored Auscultation: left: rales, bilateral: diminished breath sounds, wheezes Percussion: bilateral: not dull Cardiovascular: regular rate and rhythm Gastrointestinal: soft, non-tender, non-distended Extremities: no cyanosis, no edema, no clubbing Results - Laboratory Findings CBC and BMP: 12/25/17 05:47 12/27/17 06:30 ABG ABG pH 7.38 pH Units (7.32-7.45) 12/25/17 15:56 ABG pCO2 58 mmHg (35-45) H 12/25/17 15:56 ABG pO2 85 mmHg (85-104) 12/25/17 15:56 ABG O2 Saturation 96 % (95-98) 12/25/17 15:56 Abnormal lab findings: Abnormal lab results RDW 14.6 % (11.5-14.5) H 12/25/17 05:47 Lymphocytes # 0.4 K/mcL (0.6-4.6) L 12/25/17 05:47 ABG pCO2 58 mmHg (35-45) H 12/25/17 15:56 ABG HCO3 34 mEq/L (21-27) H 12/25/17 15:56 ABG Total CO2 36 mEq/L (20-26) H 12/25/17 15:56 ABG Base Excess 7 mEq/L (-2 to 3) H 12/25/17 15:56 BUN/Creatinine Ratio 29 (6-26) H 12/27/17 06:30 Glucose 145 mg/dL (70-105) H 12/27/17 06:30 Serum Total Protein 5.9 g/dL (6.4-8.9) L 12/25/17 05:47 Globulin 2.2 g/dL (2.4-3.5) L 12/25/17 05:47 - Clinical Findings Intake & Output: Intake & Output 12/26/17 12/27/17 12/27/17 23:59 07:59 15:59 Intake Total 480 / 480 Balance 480 / 480 Weight 70 kg
--- NOTE | 2017-12-27 10:50 | Internal Med Progress Note ---
Hospitalist Progress Note - Encounter Date of Encounter: 12/27/17 Time of Encounter: 10:48 - Subjective Interval History: Sincerely examined in the room, he reported improved respiratory symptoms, he reported chest tightness and pressure this morning about of cough. He also reported acid reflux and heartburn. - Exam Vitals: Temp Pulse Resp BP Pulse Ox 97.7 F 92 19 171/89 96 12/27/17 08:39 12/27/17 08:39 12/27/17 08:39 12/27/17 08:39 12/27/17 08:39 Exam: PHYSICAL EXAMINATION: GENERAL APPEARANCE: The patient is alert, oriented and in no acute distress. HEENT: Head is normocephalic. The sinuses are nontender. Pupils are equal and reactive. The nares are patent. Oropharynx clear without lesions. NECK: Supple without lymphadenopathy. HEART: Regular rate and rhythm. LUNGS: Diffuse wheezing bilaterally.. ABDOMEN: Soft, nontender, nondistended with good bowel sounds heard. Inguinal area is normal. EXTREMITIES: Without cyanosis, clubbing or edema. NEUROLOGICAL: Gross nonfocal. SKIN: Warm and dry without any rash. - Assessment and Plan (1) Acute exacerbation of chronic obstructive airways disease Current Visit: Yes Status: Acute Assessment and Plan: 67-year-old COPDer Delia with worsening shortness of breath, cough, and congestion. Patient has been hospitalized recently for similar complaints. He was treated and symptoms are relieved. He reported he had been sick again recently due to possible allergy/viral infection. Has been on and off with oral steroids for almost 2-3 months, he develops facial and neck puffiness. - Recent symptoms are consistent with acute exacerbation of COPD. He takes Symbicort, Singulair, and albuterol at home. We will optimize his COPD treatment, started patient on IV steroids, DuoNeb scheduled and and the as needed, continue Symbicort, adding Spiriva and the oral antibiotics. -Check c-ANCA and antitrypsin to rule out vasculitis and antitrypsin deficiency. - Patient symptoms have improved overnight. - Pulm consulted (2) Hyperlipidemia Current Visit: No Status: Chronic Assessment and Plan: Continue home medications. (3) HTN (hypertension) Current Visit: No Status: Chronic Assessment and Plan: Lipid pressure stable. Continue antihypertensives. (4) Coronary artery disease Current Visit: No Status: Chronic Assessment and Plan: Pt had chest tightness and pressure this morning after a bout of cough, He reported symptoms is similar when he had the CT years ago. EKG showed ST-T depression at V4-V6. will check troponin, cardiology consulted. (5) Neck swelling Current Visit: Yes Status: Acute Assessment and Plan: Concern for iatrogenic [place] syndrome. (6) History of heart failure Current Visit: Yes Status: Chronic Assessment and Plan: No evidence of CHF exacerbation at this time. However, given prolonged use of steroids for the past 2-3 months and mineralocorticoid effects. Currently euvolemic. (7) Chest tightness Current Visit: Yes Status: Acute Assessment and Plan: [place] complaint chest tightness, pressure this morning, EKG revealed lateral leads V4 to V6 ST depression more than 1 mm. Cardiology consult. - Time Spent with Patient Total time spent is greater than 50% in coordination of care (as documented) at patient's floor/unit and/or counseling patient: Greater than 35 minutes Plan of Care Discussed with: patient Internal Medicine: Result - Labs CBC & Chem 7: 12/25/17 05:47 12/27/17 06:30 Labs: BMP 12/27/17 06:30 Sodium 141 Potassium 4.4 Chloride 104 Carbon Dioxide 29 BUN 22 Creatinine 0.75 Glucose 145 H Calcium 8.7 - ABG Interpretation ABG results: ABG ABG pH 7.38 pH Units (7.32-7.45) 12/25/17 15:56 ABG pCO2 58 mmHg (35-45) H 12/25/17 15:56 ABG pO2 85 mmHg (85-104) 12/25/17 15:56 ABG O2 Saturation 96 % (95-98) 12/25/17 15:56 Consult Discharge Plan - Plan Additional Instructions: Call Sally when you get home to have portable tanks delivered. [phone]. Referrals: Jesse Lemus, DO [Primary Care Provider] - (2) Hyperlipidemia Qualifiers: Hyperlipidemia type: pure hypercholesterolemia Qualified Code(s): E78.00 - Pure hypercholesterolemia, unspecified; E78.0 - Pure hypercholesterolemia (3) HTN (hypertension) Qualifiers: Hypertension type: essential hypertension Qualified Code(s): I10 - Essential (primary) hypertension (4) Coronary artery disease Qualifiers: Coronary Disease-Associated Artery/Lesion type: unspecified vessel or lesion type [place] vs. transplanted heart: [place] heart Associated angina: without angina Qualified Code(s): I25.10 - Atherosclerotic heart disease of [place] coronary artery without angina pectoris
--- NOTE | 2017-12-27 10:55 | Electrocardiograph Report ---
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
[2017-12-27] MEDS: Budesonide/Formoterol 160/4.5 1 PUFF INH IH SCH ×2 (11:25→20:35)
[2017-12-27] MEDS: Tiotropium 18 MCG inhalation IH SCH (11:25)
--- NOTE | 2017-12-27 14:06 | Cardiology Consult Note ---
Date of Encounter: 12/27/17 Time of Encounter: 13:58 Assessment and Plan (1) Chest tightness Current Visit: Yes Status: Acute Typical chest pain symptoms occurring during COPD exacerbation. Known significant CAD. Troponin was negative x1. EKG shows NSR with diffuse ST depression , probable LVH. EKG with no significant change from prior EKG in 2017. H/o CABG with 1/4/ patent bypass grafts. he went to [facility] last year for re-do CABG evaluation and deemed poor candidate. He did receive [facility] with PCI. [facility] 02/08/17- [facility] report reviewed. 100% stenosisi in the LAD. BERRIOS-LAD was patent. 70% stenosisi pLCx, 100% stenosis dLCX artery. SVG to OM1 and OM2 occluded. He recieved PTCA to the LCx artery down to 30%. HARPAL placed in dLCx artery. 80% stenosis in the ostial 1st OM high risk bifurcation lesion. HARPAL placed with good results. RCA was not viewed. Known to have 100% stenosis with occluded SVG to RCA graft. Collaterals seen on prior LHC 10/2016 at [facility]. TTE 02/2017-LVEF 35%. Mildly dilated left ventricle. Mild left ventricular diastolic dysfunction. Normal right ventricular structure and function. Mild- moderate mitral regurgitation. Mild pulmonic regurgitation. Lack of significant TR gradient to estimate RVSP. Plaque visualized in the ascending aorta. Repeat troponin and TTE. Recommended to have repeat TTE 12 weeks after revascularization and has not been completed yet. Check TTE. If troponin negative recommended continued medical management and treat COPD. (2) Coronary artery disease Current Visit: No Status: Chronic Known CAD s/p CABG and multi-vessel PCI. Denies missed doses of asa and plavix. Continue asa, plavix for minimum one year uninterrupted. Continue statin, and bb. Qualifiers: Coronary Disease-Associated Artery/Lesion type: unspecified vessel or lesion type [place] vs. transplanted heart: [place] heart Associated angina: without angina Qualified Code(s): I25.10 - Atherosclerotic heart disease of [place] coronary artery without angina pectoris Discussion w patient/family: The assessment and plan as outlined above was discussed with the patient and/or family members who expressed understanding and agreement. All questions were answered. Thank you for involving us in the care of your patient. Please call with any questions. History of Present Illness Consult date: 12/27/17 Requesting physician: Vijay Anthony Consult reason: Chest pain Chief complaint: SOB, chest pain this morning History of present illness: Mr. Chase is a 67 year old male with history of CAD s/p CABG and multiple vessel PCI, ICMP, HTN, HLD, COPD who presented to the ED with SOB and cough. He was diagnosed with COPD exacerbation and is currently undergoing treatment with breathing treatments. He c/o SOB, cough, and chest tightness after walking to his bathroom this morning. He walked back to his bed and was able to catch his breath. The chest discomfort lasted 5-6 min before going away on its own. States the chest pain did fell like his angina. He did not take any nitrates. EKG was taken and he was noted to have ST depression in the V leads. Cardiology consulted for evaluation. Past Med Surg Social Fam HX - Past Medical History Medical history: arthritis, asthma, CHF, COPD, coronary artery disease, CVA, hyperlipidemia, hypertension, myocardial infarction Additional medical history: 7 stents placed total. Psychiatric history: no psych history - Past Surgical History Surgical History: angioplasty/stent, coronary bypass (CABG), herniorrhaphy Additional surgical history: 7 stents, 2-CABG - Social History Smoking Status: Former smoker Smokeless Tobacco Status: No Alcohol use: rarely Drug use: none - Family History Mother Adopted: No Living Status: Still Living Hx Family Cardiac Disorders: No Hx Family Respiratory Disorders: No Hx Family Cancer: No Hx Family GI Disorders: No Hx Family Genitourinary Disorders: No Hx Family Endocrine Disorder: No Hx Family Musculoskeletal Disorders: No Hx Family Neuromuscular Disorders: No Hx Family Neurologic Disorders: No Hx Family HEENT Disorders: No Hx Family Autoimmune Disorders: No Hx Family Reproductive Disorders: No Hx Family Psychosocial Disorders: No Hx Family Medical Disorders: No Father History Unknown: Yes Medications and Allergies Budesonide/Formoterol 160/4.5 [Symbicort 160/4.5] 2 puff IH BID 09/30/16 [ History] Roflumilast [Daliresp] 500 mcg PO DAILY 09/30/16 [History] Lisinopril 2.5 mg PO DAILY #30 tablet 10/06/16 [Rx] Albuterol Sulfate [Proair Respiclick] 90 mcg IH DAILY 11/10/16 [History] Clopidogrel [Plavix] 75 mg PO QAM 03/28/17 [History] Isosorbide MONOnitrate (24 HR) [Imdur] 60 mg PO DAILY 03/28/17 [History] Metoprolol XL (24 HR) Succ [Toprol Xl] 25 mg PO DAILY 05/27/17 [History] Simvastatin [Zocor] 80 mg PO HS 05/27/17 [History] Lactobacillus [Culturelle] 1 each PO BID #6 cap.sprink 11/24/17 [Rx] Montelukast [Singulair] 10 mg PO DAILY 12/24/17 [History] predniSONE [PredniSONE] 20 mg PO DAILY 12/24/17 [History] 3 Allergy/AdvReac Type Severity Reaction Status Date / Time Peanuts Allergy Anaphylaxis Uncoded 03/28/17 19:59 All Systems Review: The remainder of the systems were reviewed and are negative Physical Examination Vital Signs, Last 4 Hours Temp Pulse Resp BP Pulse Ox 12/27/17 12:17 98.0 F 74 18 125/61 95 General: Conversant, No Apparent Distress HEENT: Atraumatic, Normocephaly, Mucus Membranes Moist Neck: No JVD, Normal carotid pulses Cardiac: Reg Rate and Rhythm, Normal S1 and S2, No Murmur Lungs: Other (Respirations mildly labored with conversation, expiratory wheezes throughout.) Neuro: Alert and responsive, No focal deficits noted Abdomen: Soft, Non-Tender Skin: No rashes noted on visualized skin Musculoskeletal: No Chest Wall Tenderness Extremities: No Clubbing, No Cyanosis, No Edema, Normal Pulses Results 12/25/17 05:47 12/27/17 06:30 - Imaging and Cardiology Echo: report reviewed Cardiac cath: report reviewed - EKG Interpretation EKG results cardiology: personally reviewed Consult Discharge Plan - Plan Additional Instructions: Call Sally when you get home to have portable tanks delivered. [phone]. Referrals: Jesse Lemus DO [Primary Care Provider] -
[2017-12-27] MEDS ORDERED: Nitroglycerin 0.4 MG TAB.SUBL SL PRN (14:32)
--- NOTE | 2017-12-27 15:10 | Electrocardiograph Report ---
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
[2017-12-27] MEDS: Pantoprazole 40 MG VIAL IVP SCH (18:09)
[2017-12-27] MEDS: (Roflumilast [Daliresp] 500 MCG) PO SCH (18:09)
[2017-12-27] MEDS: *HR* Acetylcysteine 20% 600 MG/3 ML ORAL SYRINGE PO SCH (21:16)
[2017-12-28] MEDS: methylPREDNISolone 125 MG/2 ML VIAL IVP SCH ×4 (00:05→18:07)
[2017-12-28] MEDS: Ipratropium/Albuterol Neb 3 ML IH SCH ×5 (04:06→20:22)
[2017-12-28 05:44] LABS: Basophils % 0.4 %; Hemoglobin 12.5 g/dL (12.9-16.9); Immature Granulocytes % 4.8 % (0-4); Lymphocytes # 0.4 K/mcL (0.6-4.6); Lymphocytes % 3.3 %; Mean Corpuscular HGB Conc 32.1 g/dL (31.6-35.5); Mean Corpuscular Hemoglobin 30.6 pg (28.0-33.3); Mean Corpuscular Volume 95.4 fL (83.0-100.0); Mean Platelet Volume 10.6 fL (9.4-12.4); Monocytes # 0.4 K/mcL (0.0-1.3); Monocytes % 4.2 %; Neutrophils # 9.2 K/mcL (1.6-8.9); Nucleated Red Blood Cells 0.2 /100 WBC (0); Platelet Count 173 K/mcL (140-400); Red Blood Count 4.09 M/mcL (4.19-5.50); Segmented Neutrophils % 87.3 %
[2017-12-28 05:57] LABS: BUN/Creatinine Ratio 29 (6-26); Blood Urea Nitrogen 24 mg/dL (8-23); Calcium 8.8 mg/dL (8.6-10.3); Carbon Dioxide 33 mEq/L (23-29); Chloride 100 mEq/L (98-107); Glucose 122 mg/dL (70-105); Osmolality,Calculated 291 (280-300); Potassium 4.7 mEq/L (3.5-5.1); Sodium 138 mEq/L (136-145); eGFR For Non-African Americans > 60 (> 60)
[2017-12-28] MEDS: Pantoprazole 40 MG VIAL IVP SCH ×2 (06:12→18:08)
[2017-12-28] MEDS: *HR* Heparin 5,000 UNIT/ML VIAL SQ SCH ×3 (06:13→21:23)
--- NOTE | 2017-12-28 07:19 | Pulmonology Progress Note ---
<Tulio Cole - Last Filed: 12/28/17 11:37> Date of Encounter: 12/28/17 Assessment and Plan (1) Acute and chronic respiratory failure with hypoxia Current Visit: Yes Status: Acute - likely secondary to Hx of COPD. Patient's most recent chest CT showed severe emphysema and a left lobe pulmonary nodule (4.7mm) . There was evidence of calcified pleural plaques, therefore one cannot rule out the possibility of an intersitital lung disease - on physical exam patient has bilateral expiratory wheezes , however he does endorse difficulty breathing and worsenign sats when he ambulated from the bed to the restroom - currently on solumedrol 40 mg, day 4 of Z pack, and singulair (2) Acute exacerbation of chronic obstructive airways disease Current Visit: Yes Status: Acute (3) Coronary artery disease Current Visit: No Status: Chronic Qualifiers: Coronary Disease-Associated Artery/Lesion type: unspecified vessel or lesion type [place] vs. transplanted heart: [place] heart Associated angina: without angina Qualified Code(s): I25.10 - Atherosclerotic heart disease of [place] coronary artery without angina pectoris (4) Former smoker Current Visit: Yes Status: Acute Subjective Principal diagnosis: SOB Interval history: Patient was having shortness of breath ambulating from the bed to the restroom. His supplemental O2 requirements Objective PUL Vital signs: Last Vital Signs Temp 98.1 F 12/28/17 06:55 Pulse 72 12/28/17 06:55 Resp 20 12/28/17 08:20 BP 155/79 12/28/17 06:55 Pulse Ox 97 12/28/17 08:20 Results - Laboratory Findings CBC and BMP: 12/28/17 05:06 12/28/17 05:06 ABG ABG pH 7.38 pH Units (7.32-7.45) 12/25/17 15:56 ABG pCO2 58 mmHg (35-45) H 12/25/17 15:56 ABG pO2 85 mmHg (85-104) 12/25/17 15:56 ABG O2 Saturation 96 % (95-98) 12/25/17 15:56 Abnormal lab findings: Abnormal lab results RBC 4.09 M/mcL (4.19-5.50) L 12/28/17 05:06 Hgb 12.5 g/dL (12.9-16.9) L 12/28/17 05:06 RDW 15.0 % (11.5-14.5) H 12/28/17 05:06 Immature Gran % 4.8 % (0-4) H 12/28/17 05:06 Neutrophils # 9.2 K/mcL (1.6-8.9) H 12/28/17 05:06 Lymphocytes # 0.4 K/mcL (0.6-4.6) L 12/28/17 05:06 Nucleated RBCs/100 WBC 0.2 /100 WBC (0) H 12/28/17 05:06 ABG pCO2 58 mmHg (35-45) H 12/25/17 15:56 ABG HCO3 34 mEq/L (21-27) H 12/25/17 15:56 ABG Total CO2 36 mEq/L (20-26) H 12/25/17 15:56 ABG Base Excess 7 mEq/L (-2 to 3) H 12/25/17 15:56 Carbon Dioxide 33 mEq/L (23-29) H 12/28/17 05:06 BUN 24 mg/dL (8-23) H 12/28/17 05:06 BUN/Creatinine Ratio 29 (6-26) H 12/28/17 05:06 Glucose 122 mg/dL (70-105) H 12/28/17 05:06 Serum Total Protein 5.9 g/dL (6.4-8.9) L 12/25/17 05:47 Globulin 2.2 g/dL (2.4-3.5) L 12/25/17 05:47 - Clinical Findings Intake & Output: Intake & Output 12/27/17 12/28/17 12/28/17 23:59 07:59 15:59 Intake Total 120 / 120 Balance 120 / 120 Consult Discharge Plan - Plan Additional Instructions: Call Sally when you get home to have portable tanks delivered. [phone]. Referrals: Jesse Lemus DO [Primary Care Provider] - 01/07/18 10:30 am <Michael Villarreal - Last Filed: 12/28/17 13:14> Date of Encounter: 12/28/17 Time of Encounter: 07:19 Objective PUL Vital signs: Last Vital Signs Temp 98.1 F 12/28/17 06:55 Pulse 72 12/28/17 06:55 Resp 15 12/28/17 06:55 BP 155/79 12/28/17 06:55 Pulse Ox 98 12/28/17 06:55 Results - Laboratory Findings CBC and BMP: 12/28/17 05:06 12/28/17 05:06 ABG ABG pH 7.38 pH Units (7.32-7.45) 12/25/17 15:56 ABG pCO2 58 mmHg (35-45) H 12/25/17 15:56 ABG pO2 85 mmHg (85-104) 12/25/17 15:56 ABG O2 Saturation 96 % (95-98) 12/25/17 15:56 Abnormal lab findings: Abnormal lab results RBC 4.09 M/mcL (4.19-5.50) L 12/28/17 05:06 Hgb 12.5 g/dL (12.9-16.9) L 12/28/17 05:06 RDW 15.0 % (11.5-14.5) H 12/28/17 05:06 Immature Gran % 4.8 % (0-4) H 12/28/17 05:06 Neutrophils # 9.2 K/mcL (1.6-8.9) H 12/28/17 05:06 Lymphocytes # 0.4 K/mcL (0.6-4.6) L 12/28/17 05:06 Nucleated RBCs/100 WBC 0.2 /100 WBC (0) H 12/28/17 05:06 ABG pCO2 58 mmHg (35-45) H 12/25/17 15:56 ABG HCO3 34 mEq/L (21-27) H 12/25/17 15:56 ABG Total CO2 36 mEq/L (20-26) H 12/25/17 15:56 ABG Base Excess 7 mEq/L (-2 to 3) H 12/25/17 15:56 Carbon Dioxide 33 mEq/L (23-29) H 12/28/17 05:06 BUN 24 mg/dL (8-23) H 12/28/17 05:06 BUN/Creatinine Ratio 29 (6-26) H 12/28/17 05:06 Glucose 122 mg/dL (70-105) H 12/28/17 05:06 Serum Total Protein 5.9 g/dL (6.4-8.9) L 12/25/17 05:47 Globulin 2.2 g/dL (2.4-3.5) L 12/25/17 05:47 - Clinical Findings Intake & Output: Intake & Output 12/27/17 12/27/17 12/28/17 15:59 23:59 07:59 Output Total 600 / 600 Balance -600 / -120 - Attending Attestation I examined this patient and my medical decision-making was reviewed with the Resident Physician. I agree with the documented findings, disposition and treatment plan as described except to the extent set forth below. We independently had [id number] contact with the patient Patient seen and examined at bedside Labs, radiology, chart personally reviewed. Impression: Acute on chronic hypoxic respiratory failure COPD exacerbation Lung nodule Recs: Wean FiO2 to keep saturation greater than 88% No clear evidence of pneumonia on CT scan patient continues to have significant airway inflammation/bronchitic fixed features recommend broadening to Levaquin with bronchitis dosing (500 mg daily) to complete 5-7 day course 10 you IV steroids for the next 48 hours with plan to transition to oral glucocorticoids 40 mg of prednisone which can be decreased by 10 mg weekly until follow-up in pulmonary. I have started N-acetylcysteine by mouth and he be good candidate for Daliresp as an outpatient This is less than 5 cm considered a low risk lesion nodule but a high risk individual he will need repeat CT scan in one year this can be done with lung cancer screening program Thank you for this consultation pulmonary will sign off please call with any questions
[2017-12-28] MEDS: Budesonide/Formoterol 160/4.5 1 PUFF INH IH SCH ×2 (08:19→20:22)
[2017-12-28] MEDS ORDERED: Isosorbide MONOnitrate (24 HR) 30 MG TAB.ER.24H PO SCH (09:00)
[2017-12-28] MEDS: Metoprolol XL (24 HR) Succ 50 MG TAB.ER.24H PO SCH (10:29)
[2017-12-28] MEDS: Azithromycin 250 MG TABLET PO SCH (10:32)
[2017-12-28] MEDS: Lactobacillus 1 EACH CAP.SPRINK PO SCH ×2 (10:32→21:23)
[2017-12-28] MEDS: (Roflumilast [Daliresp] 500 MCG) PO SCH (10:35)
[2017-12-28] MEDS: *HR* Acetylcysteine 20% 600 MG/3 ML ORAL SYRINGE PO SCH ×2 (10:37→21:23)
--- NOTE | 2017-12-28 13:24 | Cardiology Progress Note ---
Date of Encounter: 12/28/17 Time of Encounter: 13:20 Assessment and Plan (1) Chest tightness Current Visit: Yes Status: Acute Typical chest pain symptoms occurring during COPD exacerbation with light activity. Known significant CAD. Troponin was negative x4. EKG shows NSR with diffuse ST depression , probable LVH. EKG with no significant change from prior EKG in 2017. H/o CABG with 1/4 patent bypass grafts. He went to [facility] last year for re-do CABG evaluation and deemed poor candidate. He did receive LHC with PCI. LHC 02/08/17- [facility] report reviewed. 100% stenosisi in the LAD. BERRIOS-LAD was patent. 70% stenosisi pLCx, 100% stenosis dLCX artery. SVG to OM1 and OM2 occluded. He recieved PTCA to the LCx artery down to 30%. HARPAL placed in dLCx artery. 80% stenosis in the ostial 1st OM high risk bifurcation lesion. HARPAL placed with good results. RCA was not viewed. Known to have 100% stenosis with occluded SVG to RCA graft. Collaterals seen on prior LHC 10/2016 at [facility]. TTE 02/2017-LVEF 35%. Mildly dilated left ventricle. Mild left ventricular diastolic dysfunction. Normal right ventricular structure and function. Mild- moderate mitral regurgitation. Mild pulmonic regurgitation. Lack of significant TR gradient to estimate RVSP. Plaque visualized in the ascending aorta. Repeat TTE shows EF 35-40%.Mildly dilated left ventricle. Segmental left ventricular systolic dysfunction. Hypokenesis in the inferior leiva. Moderate left ventricular diastolic dysfunction.Atypical septal motion consistent with post-operative status. Normal right ventricular structure and function. Mild mitral regurgitation. Recommend continuing medical management. Increase imdur as tolerate. Discussed with Dr. Goel once COPD is resolved re-evaluate symptoms. Consider further evaluation with stress test or LHC if needed. Continue asa, plavix, statin, and bb. (2) Coronary artery disease Current Visit: No Status: Chronic Known CAD s/p CABG and multi-vessel PCI. Denies missed doses of asa and plavix. Continue asa, plavix for minimum one year uninterrupted. Continue statin, and bb. Qualifiers: Coronary Disease-Associated Artery/Lesion type: unspecified vessel or lesion type [place] vs. transplanted heart: [place] heart Associated angina: without angina Qualified Code(s): I25.10 - Atherosclerotic heart disease of [place] coronary artery without angina pectoris Discussion w patient/family: The assessment and plan as outlined above was discussed with the patient and/or family members who expressed understanding and agreement. All questions were answered. Thank you for involving us in the care of your patient. Please call with any questions. Subjective Principal diagnosis: SOB Interval history: Mr. Chase reports continued SOB with midsternal chest pain radiating to his shoulder when he ambulates to the bathroom. Currently pain free. Objective Vital Signs, Last 4 Hours Temp Pulse Resp BP Pulse Ox 12/28/17 11:54 98.1 F 76 16 122/53 97 12/28/17 11:35 98 General: Conversant, No Apparent Distress HEENT: Atraumatic, Normocephaly, Mucus Membranes Moist Neck: No JVD, Normal carotid pulses Cardiac: Reg Rate and Rhythm, Normal S1 and S2, No Murmur Lungs: Normal Breath Sounds, No Wheeze, Rales, Rhonchi Neuro: Alert and responsive, No focal deficits noted Abdomen: Soft, Non-Tender Skin: No rashes noted on visualized skin Musculoskeletal: No Chest Wall Tenderness Extremities: No Clubbing, No Cyanosis, No Edema, Normal Pulses Results 12/28/17 05:06 12/28/17 05:06 Lab Results 12/27/17 12/27/17 12/28/17 13:39 16:42 05:06 WBC 10.6 Hgb 12.5 L Hct 39.0 Plt Count 173 Sodium Potassium Chloride Carbon Dioxide BUN Creatinine Glucose Calcium Troponin I 0.03 0.03 12/28/17 05:06 WBC Hgb Hct Plt Count Sodium 138 Potassium 4.7 Chloride 100 Carbon Dioxide 33 H BUN 24 H Creatinine 0.82 Glucose 122 H Calcium 8.8 Troponin I - Imaging and Cardiology Echo: report reviewed - EKG Interpretation EKG results cardiology: personally reviewed Consult Discharge Plan - Plan Additional Instructions: Call Sally when you get home to have portable tanks delivered. [phone]. Referrals: Jesse Lemus DO [Primary Care Provider] - 01/07/18 10:30 am
[2017-12-28] MEDS ORDERED: Isosorbide MONOnitrate (24 HR) 30 MG TAB.ER.24H PO ONE (13:29)
--- NOTE | 2017-12-28 14:18 | Internal Med Progress Note ---
Hospitalist Progress Note - Encounter Date of Encounter: 12/28/17 Time of Encounter: 14:16 - Subjective Interval History: Patient seen and examined at bedside. Patient states that he is feeling a little more short of breath than yesterday. Patient very dyspneic on exertion with going to the bathroom this morning. Had difficulty RN for help. Patient states that he is coughing but not producing much sputum. Pulmonology notes reviewed recommended continuing IV steroids for another 48 hours and expanding antibiotic coverage with changing azithromycin to Levaquin. Patient states that he feels reasonably comfortable while laying in bed but gets extremely dyspneic with exertion. Cardiology notes reviewed and recommend further evaluation with stress test or left heart catheter current COPD exacerbation is resolved. Patient denies any current chest pain, palpitations, nausea, vomiting , diarrhea, fevers. - Exam Vitals: Temp Pulse Resp BP Pulse Ox 98.1 F 76 16 122/53 97 12/28/17 11:54 12/28/17 11:54 12/28/17 11:54 12/28/17 11:54 12/28/17 11:54 Exam: Constitutional: No acute distress, Alert Psych: AAO x 3 HEENT: NCAT Neck: supple Cardio: regular rate and rhythm, +s1s2, no murmurs Resp: Prolonged expiratory phase with expiratory wheezing, patient does have adequate air exchange, no accessory muscle use at rest Abd: soft, non tender/non distended, positive bowel sounds Extremities: no clubbing/cyanosis/edema appreciated Neuro: no focal deficits appreciated Lymph: no adenopahty apprecitated - Assessment and Plan (1) Acute on chronic respiratory failure with hypoxia and hypercapnia Current Visit: Yes Status: Acute Assessment and Plan: Secondary to acute exacerbation of COPD -Pulmonology following appreciate recommendations -Continue IV steroids another 48 hours per pulmonology -Expand antimicrobial coverage to Levaquin -Continue bronchodilators -Wean supplemental oxygen to maintain pulse ox symmetry between 88-92% (2) Acute exacerbation of chronic obstructive airways disease Current Visit: Yes Status: Acute Assessment and Plan: Continued wheezing and severe dyspnea on exertion -Continue IV steroids and another 48 hours -Expanded antimicrobial coverage as above -Continue N-acetylcysteine -Continue bronchodilators -Maintain oxygen saturations between 88-92 percent (3) Hyperlipidemia Current Visit: No Status: Chronic Assessment and Plan: Continue home medications. (4) Coronary artery disease Current Visit: No Status: Chronic Assessment and Plan: -12/27/17 form prior provider: Pt had chest tightness and pressure this morning after a bout of cough, He reported symptoms is similar when he had the [place] years ago. EKG showed ST-T depression at V4-V6. will check troponin, cardiology consulted. 12/28/17 -Patient with ischemic cardiomyopathy junction fraction between 35-40% -Cardiology notes reviewed -continue medical management -EKG is unchanged from prior per cardiology -Likely benefit from left heart catheterization or stress test after COPD exacerbation is resolved -Continue Plavix, beta blayne, RAYMOND inhibitor (5) HTN (hypertension) Current Visit: No Status: Chronic Assessment and Plan: -Continue home medications -Blood pressure controlled (6) Neck swelling Current Visit: Yes Status: Acute Assessment and Plan: -Concern for iatrogenic [place] syndrome -We will need outpatient workup (7) History of heart failure Current Visit: Yes Status: Chronic Assessment and Plan: Patient with chronic compensated heart failure with reduced ejection fraction -Systolic and diastolic dysfunction -Last echo 35-45% ejection fraction -Cardiology notes reviewed -Consider stress test versus left heart catheter after current exacerbation of COPD is resolved DVT Prophylaxis: Heparin subcutaneous. - Summary of Assessment and Plan Summary of Assessment and Plan: Patient continues to have continued dyspnea on exertion with severe wheezing; continue IV steroids another 48 hours and antibiotic coverage expanded to Levaquin; continue bronchodilators - Time Spent with Patient Total time spent is greater than 50% in coordination of care (as documented) at patient's floor/unit and/or counseling patient: 25 - 35 minutes Plan of Care Discussed with: patient Internal Medicine: Result - Labs CBC & Chem 7: 12/28/17 05:06 12/28/17 05:06 Labs: Short CBC 12/28/17 Range/Units 05:06 WBC 10.6 (4.3-11.1) K/mcL Hgb 12.5 L (12.9-16.9) g/dL Hct 39.0 (37.5-50.1) % Plt Count 173 (140-400) K/mcL Neutrophils # 9.2 H (1.6-8.9) K/mcL BMP 12/28/17 05:06 Sodium 138 Potassium 4.7 Chloride 100 Carbon Dioxide 33 H BUN 24 H Creatinine 0.82 Glucose 122 H Calcium 8.8 Cardiac Enzymes 12/27/17 12/27/17 Range/Units 13:39 16:42 Troponin I 0.03 0.03 (< 0.04) ng/mL - ABG Interpretation ABG results: ABG ABG pH 7.38 pH Units (7.32-7.45) 12/25/17 15:56 ABG pCO2 58 mmHg (35-45) H 12/25/17 15:56 ABG pO2 85 mmHg (85-104) 12/25/17 15:56 ABG O2 Saturation 96 % (95-98) 12/25/17 15:56 - Impressions Impressions Echocardiogram 12/27/17 14:29 Impressions: LVEF 35-40%. Mildly dilated left ventricle. Segmental left ventricular systolic dysfunction. Moderate left ventricular diastolic dysfunction. Atypical septal motion consistent with post-operative status. Normal right ventricular structure and function. Mild mitral regurgitation. Chest CT 12/27/17 16:54 IMPRESSION: 1. Changes of severe emphysema and minimal atelectasis. No evidence of pneumonia. 2. Slight left lower lobe pulmonary nodule measuring 4.7 mm. 3. Calcified pleural plaques may indicate previous asbestos exposure. RECOMMENDATIONS: Fleischner Society guidelines for follow-up and management of incidentally detected pulmonary nodules: Single Solid Nodule: Nodule size less than 6 mm In a low-risk patient, no routine follow-up. In a high-risk patient, optional CT at 12 months. Nodule size equals 6-8 mm In a low-risk patient, CT at 6-12 months, then consider CT at 18-24 months. In a high-risk patient, CT at 6-12 months, then CT at 18-24 months. Nodule size greater than 8 mm In a low-risk patient, consider CT at 3 months, PET/CT, or tissue sampling. In a high-risk patient, consider CT at 3 months, PET/CT, or tissue sampling. Multiple Solid Nodules: Nodule size less than 6 mm In a low-risk patient, no routine follow-up. In a high-risk patient, optional CT at 12 months. Nodule size equals 6-8 mm In a low-risk patient, CT at 3-6 months, then consider CT at 18-24 months. In a high-risk patient, CT at 3-6 months, then CT at 18-24 months. Nodule size greater than 8 mm In a low-risk patient, CT at 3-6 months, then consider CT at 18-24 months. In a high-risk patient, CT at 3-6 months, then CT at 18-24 months. - Low risk patients include individuals with minimal or absent history of smoking and other known risk factors. - High risk patients include individuals with a history or smoking or known risk factors. Radiology 2017 http://pubs.rsna.org/doi/full/10.1148/radiol.[email or web address] D/ / 12/27/2017 18:49:28 Delma Macdonald MD / [email or web address] Interpreting Provider: Delma Macdonald MD Consult Discharge Plan - Plan Additional Instructions: Call Sally when you get home to have portable tanks delivered. [phone]. Referrals: Jesse Lemus, [Primary Care Provider] - 01/07/18 10:30 am (3) Hyperlipidemia Qualifiers: Hyperlipidemia type: pure hypercholesterolemia Qualified Code(s): E78.00 - Pure hypercholesterolemia, unspecified; E78.0 - Pure hypercholesterolemia (4) Coronary artery disease Qualifiers: Coronary Disease-Associated Artery/Lesion type: unspecified vessel or lesion type [place] vs. transplanted heart: [place] heart Associated angina: without angina Qualified Code(s): I25.10 - Atherosclerotic heart disease of [place] coronary artery without angina pectoris (5) HTN (hypertension) Qualifiers: Hypertension type: essential hypertension Qualified Code(s): I10 - Essential (primary) hypertension
[2017-12-28] MEDS: levoFLOXacin 500 MG TABLET PO SCH (16:25)
[2017-12-29] MEDS: methylPREDNISolone 125 MG/2 ML VIAL IVP SCH ×4 (00:08→17:10)
[2017-12-29] MEDS: Ipratropium/Albuterol Neb 3 ML IH SCH ×7 (00:36→23:28)
[2017-12-29 05:14] LABS: Basophils % 0.4 %; Eosinophils % 0.1 %; Hematocrit 37.5 % (37.5-50.1); Hemoglobin 11.8 g/dL (12.9-16.9); Immature Granulocytes % 4.9 % (0-4); Lymphocytes # 0.3 K/mcL (0.6-4.6); Lymphocytes % 3.3 %; Mean Corpuscular HGB Conc 31.5 g/dL (31.6-35.5); Mean Corpuscular Hemoglobin 30.6 pg (28.0-33.3); Mean Corpuscular Volume 97.2 fL (83.0-100.0); Mean Platelet Volume 10.7 fL (9.4-12.4); Monocytes # 0.3 K/mcL (0.0-1.3); Monocytes % 3.6 %; Neutrophils # 7.9 K/mcL (1.6-8.9); Platelet Count 155 K/mcL (140-400); Red Blood Count 3.86 M/mcL (4.19-5.50); Red Cell Distribution Width 14.9 % (11.5-14.5); Segmented Neutrophils % 87.7 %
[2017-12-29 05:33] LABS: BUN/Creatinine Ratio 28 (6-26); Blood Urea Nitrogen 26 mg/dL (8-23); Calcium 8.4 mg/dL (8.6-10.3); Carbon Dioxide 32 mEq/L (23-29); Chloride 100 mEq/L (98-107); Glucose 189 mg/dL (70-105); Osmolality,Calculated 296 (280-300); Potassium 4.2 mEq/L (3.5-5.1); Sodium 138 mEq/L (136-145); eGFR For Non-African Americans > 60 (> 60)
[2017-12-29] MEDS: *HR* Heparin 5,000 UNIT/ML VIAL SQ SCH ×3 (06:08→20:46)
[2017-12-29] MEDS: Pantoprazole 40 MG VIAL IVP SCH ×2 (06:08→17:11)
[2017-12-29] MEDS: *HR* Acetylcysteine 20% 600 MG/3 ML ORAL SYRINGE PO SCH ×2 (09:06→20:47)
[2017-12-29] MEDS: Isosorbide MONOnitrate (24 HR) 30 MG TAB.ER.24H PO SCH (09:06)
[2017-12-29] MEDS: Metoprolol XL (24 HR) Succ 50 MG TAB.ER.24H PO SCH (09:07)
[2017-12-29] MEDS: levoFLOXacin 500 MG TABLET PO SCH (09:07)
[2017-12-29] MEDS: Lactobacillus 1 EACH CAP.SPRINK PO SCH ×2 (09:08→20:46)
[2017-12-29] MEDS: (Roflumilast [Daliresp] 500 MCG) PO SCH (09:09)
[2017-12-29] MEDS: Budesonide/Formoterol 160/4.5 1 PUFF INH IH SCH ×2 (10:31→20:16)
[2017-12-29 11:28] LABS: Myeloperoxidase Ab 0 AU/mL (0-19); Serine Protease-3 Antibody 0 AU/mL (0-19)
--- NOTE | 2017-12-29 12:19 | Cardiology Progress Note ---
Date of Encounter: 12/29/17 Time of Encounter: 11:30 Assessment and Plan (1) Chest tightness Current Visit: Yes Status: Acute Typical chest pain symptoms occurring during COPD exacerbation with light activity. Known significant CAD. Troponin was negative x4. EKG shows NSR with diffuse ST depression , probable LVH. EKG with no significant change from prior EKG in 2017. H/o CABG with 1/4 patent bypass grafts. He went to [facility] last year for re-do CABG evaluation and deemed poor candidate. He did receive LHC with PCI. LHC 02/08/17- [facility] report reviewed. 100% stenosisi in the LAD. BERRIOS-LAD was patent. 70% stenosisi pLCx, 100% stenosis dLCX artery. SVG to OM1 and OM2 occluded. He recieved PTCA to the LCx artery down to 30%. HARPAL placed in dLCx artery. 80% stenosis in the ostial 1st OM high risk bifurcation lesion. HARPAL placed with good results. RCA was not viewed. Known to have 100% stenosis with occluded SVG to RCA graft. Collaterals seen on prior LHC 10/2016 at [facility]. TTE 02/2017-LVEF 35%. Mildly dilated left ventricle. Mild left ventricular diastolic dysfunction. Normal right ventricular structure and function. Mild- moderate mitral regurgitation. Mild pulmonic regurgitation. Lack of significant TR gradient to estimate RVSP. Plaque visualized in the ascending aorta. Repeat TTE shows EF 35-40%.Mildly dilated left ventricle. Segmental left ventricular systolic dysfunction. Hypokenesis in the inferior leiva. Moderate left ventricular diastolic dysfunction.Atypical septal motion consistent with post-operative status. Normal right ventricular structure and function. Mild mitral regurgitation. Recommend continuing medical management. Imdur increased on 12/28/17, pt. reports chest tightness improving. Still with significant wheezing and decreased breath sounds, anticipate episodes of angina to lessen once COPD exacerbation has been treated. Discussed with Dr. Goel once COPD is resolved re-evaluate symptoms. Consider further evaluation with stress test or LHC if needed. Continue asa, plavix, statin, and bb. (2) Coronary artery disease Current Visit: No Status: Chronic Known CAD s/p CABG and multi-vessel PCI. Denies missed doses of asa and plavix. Continue asa, plavix for minimum one year uninterrupted. Continue statin, and bb. Qualifiers: Coronary Disease-Associated Artery/Lesion type: bypass graft [place] vs. transplanted heart: [place] heart Associated angina: with stable angina Qualified Code(s): I25.708 - Atherosclerosis of coronary artery bypass graft(s) , unspecified, with other forms of angina pectoris Discussion w patient/family: The assessment and plan as outlined above was discussed with the patient and/or family members who expressed understanding and agreement. All questions were answered. Thank you for involving us in the care of your patient. Please call with any questions. The patient will be discussed and reviewed with Dr. Goel; changes to be made accordingly. Subjective Principal diagnosis: SOB Interval history: Seen and examined. Reports episodes of chest tightness--occurs with exertion due to difficulty breathing. Still with shortness of breath. Objective General: Conversant HEENT: Atraumatic, Normocephaly Cardiac: Reg Rate and Rhythm, Normal S1 and S2 Lungs: Other (Decreased breath sounds, significant wheezing) Neuro: Alert and responsive Abdomen: Soft Skin: No rashes noted on visualized skin Musculoskeletal: No Chest Wall Tenderness Extremities: No Edema, Normal Pulses Results 12/29/17 04:25 12/29/17 04:25 Lab Results 12/29/17 12/29/17 04:25 04:25 WBC 9.1 Hgb 11.8 L Hct 37.5 Plt Count 155 Sodium 138 Potassium 4.2 Chloride 100 Carbon Dioxide 32 H BUN 26 H Creatinine 0.93 Glucose 189 H Calcium 8.4 L Active Medications Acetylcysteine (Acetylcysteine 20%) 600 mg PO BID PRASAN[facility] Stop: 06/28/18 21:01 Last Admin: 12/29/17 09:06 Dose: 600 mg Albuterol/Ipratropium (Duoneb) 3 ml IH [id number] PRASANTH Stop: 06/26/18 08:31 Last Admin: 12/29/17 10:31 Dose: 3 ml Albuterol/Ipratropium (Duoneb) 3 ml IH [id number] PRN PRN Reason: Shortness Of Breath/Wheezing Stop: 06/26/18 08:17 Budesonide/Formoterol Fumarate (Symbicort) 2 puff IH BIDRESP PRASANTH PRN Reason: Protocol Stop: 06/26/18 10:01 Last Admin: 12/29/17 10:31 Dose: 2 puff Clopidogrel Bisulfate (Plavix) 75 mg PO QAM [facility] Stop: 06/26/18 09:01 Last Admin: 12/29/17 09:07 Dose: 75 mg Guaifenesin (Mucinex) 600 mg PO BID [facility] Stop: 06/27/18 10:31 Last Admin: 12/29/17 09:07 Dose: 600 mg Heparin Sodium (Porcine) (Heparin) 5,000 unit SQ Q8HCO [facility]AN[facility] Stop: 06/25/18 22:01 Last Admin: 12/29/17 06:08 Dose: 5,000 unit Isosorbide Mononitrate (Imdur) 120 mg PO DAILY [facility] Stop: 06/30/18 09:01 Last Admin: 12/29/17 09:06 Dose: 120 mg Lactobacillus Acidophilus/Rhamnosus (Culturelle) 1 each PO BID [facility] Stop: 06/26/18 09:01 Last Admin: 12/29/17 09:08 Dose: 1 each Levofloxacin (Levaquin) 500 mg PO DAILY [facility] PRN Reason: Protocol Stop: 01/03/18 09:01 Last Admin: 12/29/17 09:07 Dose: 500 mg Lisinopril (Zestril) 2.5 mg PO DAILY [facility] Stop: 06/26/18 09:01 Last Admin: 12/29/17 09:07 Dose: 2.5 mg Methylprednisolone (Solu-Medrol) 40 mg IVP Q6HR [facility] Stop: 06/26/18 12:01 Last Admin: 12/29/17 06:08 Dose: 40 mg Metoprolol Succinate (Toprol Xl) 25 mg PO DAILY [facility] Stop: 06/26/18 09:01 Last Admin: 12/29/17 09:07 Dose: 25 mg Montelukast Sodium (Singulair) 10 mg PO HS [facility] Stop: 06/29/18 21:01 Last Admin: 12/28/17 21:23 Dose: 10 mg Naloxone HCl (Narcan) 0.4 mg IVP Q2MIN PRN PRN Reason: SEE COMMENTS Stop: 06/25/18 20:31 Nitroglycerin (Nitroglycerin) 0.4 mg SL Q5MIN PRN PRN Reason: Chest Pain Stop: 06/28/18 14:33 Pantoprazole Sodium (Protonix) 40 mg IVP Q12HR [facility] Stop: 06/28/18 18:01 Last Admin: 12/29/17 06:08 Dose: 40 mg Pharmacy Profile Note (Patient Taking Own Medication) 0 each PO DAILY [facility] Stop: 06/26/18 09:01 Last Admin: 12/29/17 09:09 Dose: Not Given Sertraline HCl (Zoloft) 25 mg PO DAILY [facility] Stop: 06/27/18 10:31 Last Admin: 12/29/17 09:08 Dose: 25 mg Simvastatin (Zocor) 80 mg PO HS [facility] Stop: 06/26/18 21:01 Last Admin: 12/28/17 21:23 Dose: 80 mg - Imaging and Cardiology Echo: report reviewed Cardiac cath: report reviewed - EKG Interpretation EKG results cardiology: personally reviewed Consult Discharge Plan - Plan Additional Instructions: Call Sally when you get home to have portable tanks delivered. [phone]. Referrals: Jesse Lemus DO [Primary Care Provider] - 01/07/18 10:30 am
--- NOTE | 2017-12-29 12:20 | Internal Med Progress Note ---
Hospitalist Progress Note - Encounter Date of Encounter: 12/29/17 Time of Encounter: 12:20 - Subjective Interval History: Patient seen and examined at bedside. Patient states that he continues to feel very dyspneic on exertion about the same as yesterday. Patient was able to get to the bathroom a little easier than before. Patient denies any chest pain, palpitations, nausea, vomiting, diarrhea. Patient admits to continued dry cough. - Exam Vitals: Temp Pulse Resp BP Pulse Ox 97.9 F 76 18 131/78 98 12/29/17 08:10 12/29/17 08:10 12/29/17 08:10 12/29/17 08:10 12/29/17 08:10 Exam: Constitutional: No acute distress Psych: AAO x 3 HEENT: NCAT Neck: supple Cardio: regular rate and rhythm, +s1s2, no murmurs Resp: Prolonged expiratory phase; continues to have severe expiratory wheezes however has improved air movement Abd: soft, non tender/non distended, positive bowel sounds Extremities: no edema appreciated Neuro: no focal deficits appreciated Lymph: no adenopahty apprecitated - Assessment and Plan (1) Acute on chronic respiratory failure with hypoxia and hypercapnia Current Visit: Yes Status: Acute Assessment and Plan: -Secondary to acute exacerbation of COPD -Pulmonology following appreciate recommendations -Continue IV steroids another 24 hours per pulmonology -Continue Levaquin -Continue bronchodilators -Wean supplemental oxygen to maintain pulse ox symmetry between 88-92%; 97 percent upon my evaluation today (2) Acute exacerbation of chronic obstructive airways disease Current Visit: Yes Status: Acute Assessment and Plan: Continued wheezing and severe dyspnea on exertion -Continue IV steroids and another 24hours -Continue Levaquin -Continue N-acetylcysteine -Continue bronchodilators -Maintain oxygen saturations between 88-92 percent (3) Hyperlipidemia Current Visit: No Status: Chronic Assessment and Plan: -Continue home medications (4) Coronary artery disease Current Visit: No Status: Chronic Assessment and Plan: -12/27/17 form prior provider: Pt had chest tightness and pressure this morning after a bout of cough, He reported symptoms is similar when he had the [place] years ago. EKG showed ST-T depression at V4-V6. will check troponin, cardiology consulted. 12/29/17 -Patient with ischemic cardiomyopathy junction fraction between 35-40% -Cardiology notes reviewed -continue medical management -EKG is unchanged from prior per cardiology -Likely benefit from left heart catheterization or stress test after COPD exacerbation is resolved -Continue Plavix, beta blayne, RAYMOND inhibitor -no change (5) HTN (hypertension) Current Visit: No Status: Chronic Assessment and Plan: -Continue home medications -Blood pressure controlled (6) Neck swelling Current Visit: Yes Status: Acute Assessment and Plan: -Concern for iatrogenic [place] syndrome -We will need outpatient workup (7) History of heart failure Current Visit: Yes Status: Chronic Assessment and Plan: -Patient with chronic compensated heart failure with reduced ejection fraction -Systolic and diastolic dysfunction -Last echo 35-45% ejection fraction -Cardiology notes reviewed -Consider stress test versus left heart catheter after current exacerbation of COPD is resolved DVT Prophylaxis: -sq heparin - Summary of Assessment and Plan Summary of Assessment and Plan: Patient continues to have severe dyspnea on exertion. Patient does have better air movement today on exam. We will continue IV steroids and bronchodilators and Levaquin. Consider left heart catheterization after respiratory status improved. - Time Spent with Patient Total time spent is greater than 50% in coordination of care (as documented) at patient's floor/unit and/or counseling patient: 25 - 35 minutes Plan of Care Discussed with: patient Internal Medicine: Result - Labs CBC & Chem 7: 12/29/17 04:25 12/29/17 04:25 Labs: Short CBC 12/29/17 Range/Units 04:25 WBC 9.1 (4.3-11.1) K/mcL Hgb 11.8 L (12.9-16.9) g/dL Hct 37.5 (37.5-50.1) % Plt Count 155 (140-400) K/mcL Neutrophils # 7.9 (1.6-8.9) K/mcL BMP 12/29/17 04:25 Sodium 138 Potassium 4.2 Chloride 100 Carbon Dioxide 32 H BUN 26 H Creatinine 0.93 Glucose 189 H Calcium 8.4 L - ABG Interpretation ABG results: ABG ABG pH 7.38 pH Units (7.32-7.45) 12/25/17 15:56 ABG pCO2 58 mmHg (35-45) H 12/25/17 15:56 ABG pO2 85 mmHg (85-104) 12/25/17 15:56 ABG O2 Saturation 96 % (95-98) 12/25/17 15:56 Consult Discharge Plan - Plan Additional Instructions: Call Sally when you get home to have portable tanks delivered. [phone]. Referrals: Jesse Lemus DO [Primary Care Provider] - 01/07/18 10:30 am (3) Hyperlipidemia Qualifiers: Hyperlipidemia type: pure hypercholesterolemia Qualified Code(s): E78.00 - Pure hypercholesterolemia, unspecified; E78.0 - Pure hypercholesterolemia (4) Coronary artery disease Qualifiers: Coronary Disease-Associated Artery/Lesion type: unspecified vessel or lesion type [place] vs. transplanted heart: [place] heart Associated angina: without angina Qualified Code(s): I25.10 - Atherosclerotic heart disease of [place] coronary artery without angina pectoris (5) HTN (hypertension) Qualifiers: Hypertension type: essential hypertension Qualified Code(s): I10 - Essential (primary) hypertension
[2017-12-30] MEDS: methylPREDNISolone 125 MG/2 ML VIAL IVP SCH ×5 (00:03→23:11)
[2017-12-30] MEDS: Ipratropium/Albuterol Neb 3 ML IH SCH ×6 (03:28→23:27)
[2017-12-30 05:11] LABS: Basophils # 0.1 K/mcL (0.0-0.2); Basophils % 0.5 %; Hematocrit 38.8 % (37.5-50.1); Hemoglobin 12.1 g/dL (12.9-16.9); Lymphocytes # 0.3 K/mcL (0.6-4.6); Lymphocytes % 3.1 %; Mean Corpuscular HGB Conc 31.2 g/dL (31.6-35.5); Mean Platelet Volume 10.2 fL (9.4-12.4); Monocytes # 0.5 K/mcL (0.0-1.3); Neutrophils # 8.5 K/mcL (1.6-8.9); Platelet Count 150 K/mcL (140-400); Red Blood Count 4.04 M/mcL (4.19-5.50); Red Cell Distribution Width 14.8 % (11.5-14.5); Segmented Neutrophils % 86.4 %
[2017-12-30 05:32] LABS: BUN/Creatinine Ratio 30 (6-26); Blood Urea Nitrogen 23 mg/dL (8-23); Calcium 8.3 mg/dL (8.6-10.3); Carbon Dioxide 34 mEq/L (23-29); Chloride 100 mEq/L (98-107); Glucose 136 mg/dL (70-105); Osmolality,Calculated 292 (280-300); Potassium 4.5 mEq/L (3.5-5.1); Sodium 138 mEq/L (136-145); eGFR For Non-African Americans > 60 (> 60)
[2017-12-30] MEDS: Pantoprazole 40 MG VIAL IVP SCH ×2 (05:38→17:12)
[2017-12-30] MEDS: *HR* Heparin 5,000 UNIT/ML VIAL SQ SCH ×3 (05:38→20:17)
[2017-12-30] MEDS: Budesonide/Formoterol 160/4.5 1 PUFF INH IH SCH ×2 (07:37→20:02)
[2017-12-30] MEDS: Isosorbide MONOnitrate (24 HR) 30 MG TAB.ER.24H PO SCH (08:45)
[2017-12-30] MEDS: levoFLOXacin 500 MG TABLET PO SCH (08:46)
[2017-12-30] MEDS: Lactobacillus 1 EACH CAP.SPRINK PO SCH ×2 (08:46→20:17)
[2017-12-30] MEDS: Metoprolol XL (24 HR) Succ 50 MG TAB.ER.24H PO SCH (08:46)
[2017-12-30] MEDS: (Roflumilast [Daliresp] 500 MCG) PO SCH (08:48)
[2017-12-30] MEDS: *HR* Acetylcysteine 20% 600 MG/3 ML ORAL SYRINGE PO SCH ×2 (08:48→20:17)
--- NOTE | 2017-12-30 10:30 | Cardiology Progress Note ---
Date of Encounter: 12/30/17 Time of Encounter: 10:27 Assessment and Plan (1) Chest tightness Current Visit: Yes Status: Acute Typical chest pain symptoms occurring during COPD exacerbation with light activity. Known significant CAD. Troponin was negative x4. EKG shows NSR with diffuse ST depression , probable LVH. EKG with no significant change from prior EKG in 2017. H/o CABG with 1/4 patent bypass grafts. He went to [facility] last year for re-do CABG evaluation and deemed poor candidate. He did receive [facility] with PCI. [facility] 02/08/17- [facility] report reviewed. 100% stenosisi in the LAD. BERRIOS-LAD was patent. 70% stenosisi pLCx, 100% stenosis dLCX artery. SVG to OM1 and OM2 occluded. He recieved PTCA to the LCx artery down to 30%. HARPAL placed in dLCx artery. 80% stenosis in the ostial 1st OM high risk bifurcation lesion. HARPAL placed with good results. RCA was not viewed. Known to have 100% stenosis with occluded SVG to RCA graft. Collaterals seen on prior LHC 10/2016 at [facility]. TTE 02/2017-LVEF 35%. Mildly dilated left ventricle. Mild left ventricular diastolic dysfunction. Normal right ventricular structure and function. Mild- moderate mitral regurgitation. Mild pulmonic regurgitation. Lack of significant TR gradient to estimate RVSP. Plaque visualized in the ascending aorta. Repeat TTE shows EF 35-40%.Mildly dilated left ventricle. Segmental left ventricular systolic dysfunction. Hypokenesis in the inferior leiva. Moderate left ventricular diastolic dysfunction.Atypical septal motion consistent with post-operative status. Normal right ventricular structure and function. Mild mitral regurgitation. Recommend continuing medical management. Imdur increased on 12/28/17 and . He denies recurrent chest pain and states he is feeling somewhat better. Continues to have wheezing and SOB and is still being treated for COPD exacerbation. We will have him follow with his temporary office assistant and reevaluate once COPD exacerbation has resolved. Continue asa, plavix, statin, and bb. Patient agrees with plan. Cardiology will sign off. Please call with changes. (2) Coronary artery disease Current Visit: No Status: Chronic Known CAD s/p CABG and multi-vessel PCI. Denies missed doses of asa and plavix. Continue asa, plavix for minimum one year uninterrupted. Continue statin, and bb. Qualifiers: Coronary Disease-Associated Artery/Lesion type: bypass graft [place] vs. transplanted heart: [place] heart Associated angina: with stable angina Qualified Code(s): I25.708 - Atherosclerosis of coronary artery bypass graft(s) , unspecified, with other forms of angina pectoris Discussion w patient/family: The assessment and plan as outlined above was discussed with the patient and/or family members who expressed understanding and agreement. All questions were answered. Thank you for involving us in the care of your patient. Please call with any questions. Subjective Principal diagnosis: SOB Interval history: Mr. Chase reports continued SOB with midsternal chest pain radiating to his shoulder when he ambulates to the bathroom. Currently pain free. Objective Vital Signs, Last 4 Hours Temp Pulse Resp BP Pulse Ox 12/30/17 07:40 96.6 F L 76 18 149/76 98 12/30/17 07:39 16 98 General: Conversant, No Apparent Distress HEENT: Atraumatic, Normocephaly, Mucus Membranes Moist Neck: No JVD, Normal carotid pulses Cardiac: Reg Rate and Rhythm, Normal S1 and S2, No Murmur Lungs: Normal Breath Sounds, No Wheeze, Rales, Rhonchi Neuro: Alert and responsive, No focal deficits noted Abdomen: Soft, Non-Tender Skin: No rashes noted on visualized skin Musculoskeletal: No Chest Wall Tenderness Extremities: No Clubbing, No Cyanosis, No Edema, Normal Pulses Results 12/30/17 04:55 12/30/17 04:55 Lab Results 12/30/17 12/30/17 04:55 04:55 WBC 9.8 Hgb 12.1 L Hct 38.8 Plt Count 150 Sodium 138 Potassium 4.5 Chloride 100 Carbon Dioxide 34 H BUN 23 Creatinine 0.77 Glucose 136 H Calcium 8.3 L - Imaging and Cardiology Echo: report reviewed - EKG Interpretation EKG results cardiology: personally reviewed Consult Discharge Plan - Plan Additional Instructions: Call Sally when you get home to have portable tanks delivered. [phone]. Referrals: Jesse Lemus DO [Primary Care Provider] - 01/07/18 10:30 am
--- NOTE | 2017-12-30 13:21 | Internal Med Progress Note ---
Hospitalist Progress Note - Encounter Date of Encounter: 12/30/17 Time of Encounter: 13:19 - Subjective Interval History: Patient seen and examined at bedside. Patient states that he still feels short of breath especially with exertion. Continues to struggle with producing sputum. Denies any chest pain, palpitations, nausea, vomiting, diarrhea. - Exam Vitals: Temp Pulse Resp BP Pulse Ox 97.9 F 82 18 129/66 99 12/30/17 12:07 12/30/17 12:07 12/30/17 12:07 12/30/17 12:07 12/30/17 12:07 Exam: Constitutional: No acute distress Psych: AAO x 3 HEENT: NCAT Neck: supple Cardio: regular rate and rhythm Resp: Prolonged expiratory phase; continues to have severe expiratory wheezes, decreased air movement today compared to yesterday left worse than right Abd: soft, non tender/non distended, positive bowel sounds Extremities: no edema appreciated Neuro: no focal deficits appreciated Lymph: no adenopahty apprecitated - Assessment and Plan (1) Acute on chronic respiratory failure with hypoxia and hypercapnia Current Visit: Yes Status: Acute Assessment and Plan: -Secondary to acute exacerbation of COPD -Pulmonology following appreciate recommendations -Continue IV steroids; likely transition to oral the next 24-48 hours however patient with decreased air movement today compared to yesterday -Continue Levaquin -Continue bronchodilators -Wean supplemental oxygen to maintain pulse ox symmetry between 88-92% (2) Acute exacerbation of chronic obstructive airways disease Current Visit: Yes Status: Acute Assessment and Plan: Continued wheezing and severe dyspnea on exertion -Continue IV steroids; decreased air movement today -Continue Levaquin -Continue N-acetylcysteine -Continue bronchodilators -Maintain oxygen saturations between 88-92 percent (3) Hyperlipidemia Current Visit: No Status: Chronic Assessment and Plan: -Continue home medications (4) Coronary artery disease Current Visit: No Status: Chronic Assessment and Plan: -12/27/17 form prior provider: Pt had chest tightness and pressure this morning after a bout of cough, He reported symptoms is similar when he had the [place] years ago. EKG showed ST-T depression at V4-V6. will check troponin, cardiology consulted. 12/30/17 -Patient with ischemic cardiomyopathy junction fraction between 35-40% -Cardiology notes reviewed -continue medical management -EKG is unchanged from prior per cardiology -Likely benefit from left heart catheterization or stress test after COPD exacerbation is resolved -Continue Plavix, beta blayne, RAYMOND inhibitor -Cardiology to sign off likely outpatient cardiology follow-up (5) HTN (hypertension) Current Visit: No Status: Chronic Assessment and Plan: -Continue home medications -Blood pressure controlled (6) Neck swelling Current Visit: Yes Status: Acute Assessment and Plan: -Concern for iatrogenic [place] syndrome -We will need outpatient workup (7) History of heart failure Current Visit: Yes Status: Chronic Assessment and Plan: -Patient with chronic compensated heart failure with reduced ejection fraction -Systolic and diastolic dysfunction -Last echo 35-45% ejection fraction -Cardiology notes reviewed -Consider stress test versus left heart catheter after current exacerbation of COPD is resolved DVT Prophylaxis: -sq heparin - Summary of Assessment and Plan Summary of Assessment and Plan: -Patient continues to have severe dyspnea on exertion. -Decreased air movement today -Continue IV steroids -Continue Levaquin -Continue bronchodilators -Hopefully change to by mouth's steroids in the next 24-48 hours -If patient does not improve we will consider pulmonary evaluation - Time Spent with Patient Total time spent is greater than 50% in coordination of care (as documented) at patient's floor/unit and/or counseling patient: 25 - 35 minutes Plan of Care Discussed with: patient Internal Medicine: Result - Labs CBC & Chem 7: 12/30/17 04:55 12/30/17 04:55 Labs: Short CBC 12/30/17 Range/Units 04:55 WBC 9.8 (4.3-11.1) K/mcL Hgb 12.1 L (12.9-16.9) g/dL Hct 38.8 (37.5-50.1) % Plt Count 150 (140-400) K/mcL Neutrophils # 8.5 (1.6-8.9) K/mcL BMP 12/30/17 04:55 Sodium 138 Potassium 4.5 Chloride 100 Carbon Dioxide 34 H BUN 23 Creatinine 0.77 Glucose 136 H Calcium 8.3 L - ABG Interpretation ABG results: ABG ABG pH 7.38 pH Units (7.32-7.45) 12/25/17 15:56 ABG pCO2 58 mmHg (35-45) H 12/25/17 15:56 ABG pO2 85 mmHg (85-104) 12/25/17 15:56 ABG O2 Saturation 96 % (95-98) 12/25/17 15:56 Consult Discharge Plan - Plan Additional Instructions: Call Sally when you get home to have portable tanks delivered. [phone]. Referrals: Jesse Lemus DO [Primary Care Provider] - 01/07/18 10:30 am (3) Hyperlipidemia Qualifiers: Hyperlipidemia type: pure hypercholesterolemia Qualified Code(s): E78.00 - Pure hypercholesterolemia, unspecified; E78.0 - Pure hypercholesterolemia (4) Coronary artery disease Qualifiers: Coronary Disease-Associated Artery/Lesion type: bypass graft [place] vs. transplanted heart: [place] heart Associated angina: with stable angina Qualified Code(s): I25.708 - Atherosclerosis of coronary artery bypass graft(s) , unspecified, with other forms of angina pectoris (5) HTN (hypertension) Qualifiers: Hypertension type: essential hypertension Qualified Code(s): I10 - Essential (primary) hypertension
[2017-12-31] MEDS: Ipratropium/Albuterol Neb 3 ML IH SCH ×6 (03:52→23:46)
[2017-12-31 05:16] LABS: Basophils # 0.1 K/mcL (0.0-0.2); Basophils % 0.6 %; Hematocrit 37.4 % (37.5-50.1); Hemoglobin 12.1 g/dL (12.9-16.9); Immature Granulocytes % 5.1 % (0-4); Lymphocytes # 0.3 K/mcL (0.6-4.6); Lymphocytes % 2.8 %; Mean Corpuscular HGB Conc 32.4 g/dL (31.6-35.5); Mean Corpuscular Hemoglobin 30.9 pg (28.0-33.3); Mean Corpuscular Volume 95.7 fL (83.0-100.0); Mean Platelet Volume 10.5 fL (9.4-12.4); Monocytes # 0.6 K/mcL (0.0-1.3); Monocytes % 5.8 %; Neutrophils # 8.8 K/mcL (1.6-8.9); Platelet Count 145 K/mcL (140-400); Red Blood Count 3.91 M/mcL (4.19-5.50); Red Cell Distribution Width 14.8 % (11.5-14.5); Segmented Neutrophils % 85.7 %
[2017-12-31 05:39] LABS: BUN/Creatinine Ratio 37 (6-26); Blood Urea Nitrogen 29 mg/dL (8-23); Calcium 8.4 mg/dL (8.6-10.3); Carbon Dioxide 35 mEq/L (23-29); Chloride 105 mEq/L (98-107); Glucose 159 mg/dL (70-105); Magnesium 2.5 mg/dL (1.6-2.6); Osmolality,Calculated 289 (280-300); Phosphorous 2.8 mg/dL (2.7-4.5); Potassium 4.4 mEq/L (3.5-5.1); Sodium 135 mEq/L (136-145); eGFR For Non-African Americans > 60 (> 60)
[2017-12-31 06:13] LABS: Platelet Estimate Normal (Normal)
[2017-12-31] MEDS: methylPREDNISolone 125 MG/2 ML VIAL IVP SCH ×3 (06:36→17:33)
[2017-12-31] MEDS: Pantoprazole 40 MG VIAL IVP SCH ×2 (06:36→17:33)
[2017-12-31] MEDS: *HR* Heparin 5,000 UNIT/ML VIAL SQ SCH ×3 (06:36→21:15)
[2017-12-31] MEDS: Budesonide/Formoterol 160/4.5 1 PUFF INH IH SCH ×2 (08:09→19:52)
--- NOTE | 2017-12-31 08:58 | Internal Med Progress Note ---
Hospitalist Progress Note - Encounter Date of Encounter: 12/31/17 Time of Encounter: 08:55 - Subjective Interval History: Patient seen and examined at bedside. Patient states that he continues to feel very tight and extremely dyspneic with exertion; he does however state that he feels like air is moving a little bit easier today. Patient continues to have dry cough but not producing sputum. Has been afebrile. We will obtain chest x- ray today. - Exam Vitals: Temp Pulse Resp BP Pulse Ox 98.2 F 70 16 144/70 95 12/31/17 06:35 12/31/17 06:35 12/31/17 08:10 12/31/17 06:35 12/31/17 08:10 Exam: Constitutional: No acute distress Psych: AAO x 3 HEENT: NCAT Neck: supple Cardio: regular rate and rhythm Resp: Prolonged expiratory phase; continues to have severe expiratory wheezes, continues to have decreased air movement Abd: soft, non tender/non distended, positive bowel sounds Extremities: no edema appreciated Neuro: no focal deficits appreciated Lymph: no adenopahty apprecitated - Assessment and Plan (1) Acute on chronic respiratory failure with hypoxia and hypercapnia Current Visit: Yes Status: Acute Assessment and Plan: -Secondary to acute exacerbation of COPD -Pulmonology following appreciate recommendations -Continue IV steroids; has been on prolonged course however patient not making much progress; do not feel like it would be safe to change to oral steroids today -Continue Levaquin -Continue bronchodilators -Wean supplemental oxygen to maintain pulse ox symmetry between 88-92% -Obtain 2 view chest x-ray -If no improvement will consider having pulmonology reevaluate for any further recommendations (2) Acute exacerbation of chronic obstructive airways disease Current Visit: Yes Status: Acute Assessment and Plan: Continued wheezing and severe dyspnea on exertion -Continue IV steroids; unable to transition to orals currently -Continue Levaquin -Continue N-acetylcysteine -Continue bronchodilators -Maintain oxygen saturations between 88-92 percent -Chest x-ray today (3) Hyperlipidemia Current Visit: No Status: Chronic Assessment and Plan: -Continue home medications (4) Coronary artery disease Current Visit: No Status: Chronic Assessment and Plan: -12/27/17 form prior provider: Pt had chest tightness and pressure this morning after a bout of cough, He reported symptoms is similar when he had the [place] years ago. EKG showed ST-T depression at V4-V6. will check troponin, cardiology consulted. 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 -Unable to transition to orals steroids currently -Obtain two-view chest x-ray today -Patient has no JVD but if chest x-ray reveals evidence of volume overload we will give diuretic to see if that improves his respiratory status -We will consider pulmonology reevaluation if no improvement in the next day or so - Time Spent with Patient Total time spent is greater than 50% in coordination of care (as documented) at patient's floor/unit and/or counseling patient: 25 - 35 minutes Plan of Care Discussed with: patient Internal Medicine: Result - Labs CBC & Chem 7: 12/31/17 04:59 12/31/17 04:59 Labs: Short CBC 12/31/17 Range/Units 04:59 WBC 10.3 (4.3-11.1) K/mcL Hgb 12.1 L (12.9-16.9) g/dL Hct 37.4 L (37.5-50.1) % Plt Count 145 (140-400) K/mcL Neutrophils # 8.8 (1.6-8.9) K/mcL BMP 12/31/17 04:59 Sodium 135 L Potassium 4.4 Chloride 105 Carbon Dioxide 35 H BUN 29 H Creatinine 0.79 Glucose 159 H Calcium 8.4 L - ABG Interpretation ABG results: ABG ABG pH 7.38 pH Units (7.32-7.45) 12/25/17 15:56 ABG pCO2 58 mmHg (35-45) H 12/25/17 15:56 ABG pO2 85 mmHg (85-104) 12/25/17 15:56 ABG O2 Saturation 96 % (95-98) 12/25/17 15:56 Consult Discharge Plan - Plan Additional Instructions: Call Sally when you get home to have portable tanks delivered. [phone]. Referrals: Jesse Lemus DO [Primary Care Provider] - 01/07/18 10:30 am (3) Hyperlipidemia Qualifiers: Hyperlipidemia type: pure hypercholesterolemia Qualified Code(s): E78.00 - Pure hypercholesterolemia, unspecified; E78.0 - Pure hypercholesterolemia (4) Coronary artery disease Qualifiers: Coronary Disease-Associated Artery/Lesion type: bypass graft [place] vs. transplanted heart: [place] heart Associated angina: with stable angina Qualified Code(s): I25.708 - Atherosclerosis of coronary artery bypass graft(s) , unspecified, with other forms of angina pectoris (5) HTN (hypertension) Qualifiers: Hypertension type: essential hypertension Qualified Code(s): I10 - Essential (primary) hypertension
[2017-12-31] MEDS: Lactobacillus 1 EACH CAP.SPRINK PO SCH ×2 (10:08→21:26)
[2017-12-31] MEDS: Metoprolol XL (24 HR) Succ 50 MG TAB.ER.24H PO SCH (10:08)
[2017-12-31] MEDS: levoFLOXacin 500 MG TABLET PO SCH (10:08)
[2017-12-31] MEDS: Isosorbide MONOnitrate (24 HR) 30 MG TAB.ER.24H PO SCH (10:09)
[2017-12-31] MEDS: (Roflumilast [Daliresp] 500 MCG) PO SCH (10:10)
[2017-12-31] MEDS: *HR* Acetylcysteine 20% 600 MG/3 ML ORAL SYRINGE PO SCH ×2 (10:10→21:25)
[2018-01-01] MEDS: methylPREDNISolone 125 MG/2 ML VIAL IVP SCH ×5 (00:11→23:07)
[2018-01-01] MEDS: Ipratropium/Albuterol Neb 3 ML IH SCH ×5 (04:14→19:42)
[2018-01-01 05:33] LABS: Basophils # 0.1 K/mcL (0.0-0.2); Basophils % 0.6 %; Hematocrit 37.8 % (37.5-50.1); Immature Granulocytes % 5.9 % (0-4); Lymphocytes # 0.3 K/mcL (0.6-4.6); Lymphocytes % 2.9 %; Mean Corpuscular HGB Conc 31.7 g/dL (31.6-35.5); Mean Corpuscular Hemoglobin 30.5 pg (28.0-33.3); Mean Corpuscular Volume 95.9 fL (83.0-100.0); Mean Platelet Volume 10.7 fL (9.4-12.4); Monocytes # 0.4 K/mcL (0.0-1.3); Neutrophils # 9.5 K/mcL (1.6-8.9); Platelet Count 145 K/mcL (140-400); Red Blood Count 3.94 M/mcL (4.19-5.50); Red Cell Distribution Width 14.7 % (11.5-14.5); Segmented Neutrophils % 86.6 %
[2018-01-01 05:51] LABS: BUN/Creatinine Ratio 37 (6-26); Blood Urea Nitrogen 30 mg/dL (8-23); Calcium 8.3 mg/dL (8.6-10.3); Carbon Dioxide 33 mEq/L (23-29); Chloride 101 mEq/L (98-107); Glucose 154 mg/dL (70-105); Osmolality,Calculated 299 (280-300); Potassium 4.5 mEq/L (3.5-5.1); Sodium 140 mEq/L (136-145); eGFR For Non-African Americans > 60 (> 60)
[2018-01-01 06:17] LABS: Platelet Estimate Normal (Normal)
[2018-01-01] MEDS: *HR* Heparin 5,000 UNIT/ML VIAL SQ SCH ×3 (06:34→23:07)
[2018-01-01] MEDS: Pantoprazole 40 MG VIAL IVP SCH ×2 (06:40→17:30)
[2018-01-01] MEDS: Budesonide/Formoterol 160/4.5 1 PUFF INH IH SCH ×2 (07:21→19:42)
[2018-01-01] MEDS: Isosorbide MONOnitrate (24 HR) 30 MG TAB.ER.24H PO SCH (08:35)
[2018-01-01] MEDS: Lactobacillus 1 EACH CAP.SPRINK PO SCH ×2 (08:35→20:32)
[2018-01-01] MEDS: Metoprolol XL (24 HR) Succ 50 MG TAB.ER.24H PO SCH (08:35)
[2018-01-01] MEDS: levoFLOXacin 500 MG TABLET PO SCH (08:36)
[2018-01-01] MEDS: *HR* Acetylcysteine 20% 600 MG/3 ML ORAL SYRINGE PO SCH ×2 (08:36→20:32)
[2018-01-01] MEDS: (Roflumilast [Daliresp] 500 MCG) PO SCH (08:36)
--- NOTE | 2018-01-01 15:39 | Internal Med Progress Note ---
Hospitalist Progress Note - Encounter Date of Encounter: 01/01/18 Time of Encounter: 15:22 - Subjective Interval History: Pt states he still feels tight and reports difficulty expectorating. Denies fever or chills. Tolerating nasal canula. - Exam Vitals: Temp Pulse Resp BP Pulse Ox 98.2 F 71 18 128/63 97 01/01/18 10:57 01/01/18 10:57 01/01/18 12:24 01/01/18 10:57 01/01/18 12:24 Exam: Constitutional: No acute distress Psych: AAO x 3 HEENT: NCAT Neck: supple Cardio: regular rate and rhythm Resp: Prolonged expiratory phase; continues to have expiratory wheezes, continues to have decreased air movement Abd: soft, non tender/non distended, positive bowel sounds Extremities: no edema appreciated Neuro: no focal deficits appreciated Lymph: no adenopahty apprecitated - Assessment and Plan (1) Acute on chronic respiratory failure with hypoxia and hypercapnia Current Visit: Yes Status: Acute Assessment and Plan: -Secondary to acute exacerbation of COPD. Chronic resp failure and on on 21/2 L NC at home at baseline. Most recent CT chest showing severe emphysema. -Pulmonology was following and signed off. -Continue IV steroids for now; -Continue Levaquin continue mucinex -Continue bronchodilators -Wean supplemental oxygen to maintain pulse ox symmetry between 88-92% -Obtain 2 view chest x-ray -If no improvement will consider having pulmonology reevaluate for any further recommendations (2) Acute exacerbation of chronic obstructive airways disease Current Visit: Yes Status: Acute Assessment and Plan: Still wheezing and some chest tightness. Pt will benefit form few more days of nebs.and IV steriods. -Continue IV steroids; unable to transition to orals currently -Continue Levaquin -Continue N-acetylcysteine -Continue bronchodilators -Maintain oxygen saturations between 88-92 percent -Chest x-ray today (3) Hyperlipidemia Current Visit: No Status: Chronic Assessment and Plan: -Zocor (4) HTN (hypertension) Current Visit: No Status: Chronic Assessment and Plan: -Lsinopirl and Metoprolol. -Blood pressure controlled (5) Coronary artery disease Current Visit: No Status: Chronic Assessment and Plan: -12/27/17 form prior provider: Pt had chest tightness and pressure this morning after a bout of cough, He reported symptoms is similar when he had the [place] years ago. EKG showed ST-T depression at V4-V6. will check troponin, cardiology consulted. 12/31/17 -Patient with ischemic cardiomyopathy junction fraction between 35-40% -Cardiology notes reviewed -continue medical management -EKG is unchanged from prior per cardiology -Likely benefit from left heart catheterization or stress test after COPD exacerbation is resolved -Continue Plavix, beta blayne, RAYMOND inhibitor -Cardiology signed off likely outpatient cardiology follow-up (6) Neck swelling Current Visit: Yes Status: Acute Assessment and Plan: pt may follow up with PCP out pt for iatrogenic Aleida syndrome Electrolytes here are wnl and vitals have been stable. (7) History of heart failure Current Visit: Yes Status: Chronic Assessment and Plan: -Patient with chronic compensated heart failure with reduced ejection fraction -Systolic and diastolic dysfunction -Last echo 35-45% ejection fraction -Cardiology notes reviewed -Per cardiology, consider stress test versus left heart cath after current exacerbation of COPD is resolved DVT Prophylaxis: Heparin - Summary of Assessment and Plan Summary of Assessment and Plan: Mr. Chase is a 67 year old male with a past medical history of COPD, coronary artery disease, ischemic cardiomyopathy, hypertension who presents with history of worsening shortness of breath. Patient states he saw his PCP a month ago for treatment of bronchitis and was put on a prednisone taper as well as a course of levofloxacin. However despite symptoms initially improving, he states that for the past several days is breathing is gotten worse with exertion to the point where he cannot walk from one room to the other without being short of breath. Denies any issues of dyspnea at rest. He reports that he has been on 10 mg of prednisone for the complete month of August and September prior to increasing his dose to 40 mg and tapering. He currently is on home oxygen as needed but has been requiring 2-1/2 L constantly. 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 Denies any fever, chills, chest pain, orthopnea, PND or lower extremity edema. He has noted increased swelling in his face and neck. - Time Spent with Patient Total time spent is greater than 50% in coordination of care (as documented) at patient's floor/unit and/or counseling patient: less than 15 minutes Plan of Care Discussed with: patient Internal Medicine: Result - Labs CBC & Chem 7: 01/01/18 03:58 01/01/18 03:58 Labs: Short CBC 01/01/18 Range/Units 03:58 WBC 11.0 (4.3-11.1) K/mcL Hgb 12.0 L (12.9-16.9) g/dL Hct 37.8 (37.5-50.1) % Plt Count 145 (140-400) K/mcL Neutrophils # 9.5 H (1.6-8.9) K/mcL BMP 01/01/18 03:58 Sodium 140 Potassium 4.5 Chloride 101 Carbon Dioxide 33 H BUN 30 H Creatinine 0.81 Glucose 154 H Calcium 8.3 L - ABG Interpretation ABG results: ABG ABG pH 7.38 pH Units (7.32-7.45) 12/25/17 15:56 ABG pCO2 58 mmHg (35-45) H 12/25/17 15:56 ABG pO2 85 mmHg (85-104) 12/25/17 15:56 ABG O2 Saturation 96 % (95-98) 12/25/17 15:56 Consult Discharge Plan - Plan Additional Instructions: Call Sally when you get home to have portable tanks delivered. [phone]. Referrals: Jesse Lemus DO [Primary Care Provider] - 01/07/18 10:30 am (3) Hyperlipidemia Qualifiers: Hyperlipidemia type: pure hypercholesterolemia Qualified Code(s): E78.00 - Pure hypercholesterolemia, unspecified; E78.0 - Pure hypercholesterolemia (4) HTN (hypertension) Qualifiers: Hypertension type: essential hypertension Qualified Code(s): I10 - Essential (primary) hypertension (5) Coronary artery disease Qualifiers: Coronary Disease-Associated Artery/Lesion type: bypass graft [place] vs. transplanted heart: [place] heart Associated angina: with stable angina Qualified Code(s): I25.708 - Atherosclerosis of coronary artery bypass graft(s) , unspecified, with other forms of angina pectoris
[2018-01-02] MEDS: Ipratropium/Albuterol Neb 3 ML IH SCH ×7 (00:02→23:34)
[2018-01-02] MEDS: *HR* Heparin 5,000 UNIT/ML VIAL SQ SCH ×3 (05:38→22:59)
[2018-01-02] MEDS: methylPREDNISolone 125 MG/2 ML VIAL IVP SCH ×2 (05:38→12:50)
[2018-01-02] MEDS: Pantoprazole 40 MG VIAL IVP SCH ×2 (05:38→16:49)
[2018-01-02] MEDS: Budesonide/Formoterol 160/4.5 1 PUFF INH IH SCH ×2 (07:17→20:02)
[2018-01-02] MEDS: Lactobacillus 1 EACH CAP.SPRINK PO SCH ×2 (08:41→20:22)
[2018-01-02] MEDS: Isosorbide MONOnitrate (24 HR) 30 MG TAB.ER.24H PO SCH (08:42)
[2018-01-02] MEDS: Metoprolol XL (24 HR) Succ 50 MG TAB.ER.24H PO SCH (08:42)
[2018-01-02] MEDS: levoFLOXacin 500 MG TABLET PO SCH (08:44)
[2018-01-02] MEDS: *HR* Acetylcysteine 20% 600 MG/3 ML ORAL SYRINGE PO SCH ×2 (08:45→20:23)
[2018-01-02] MEDS: (Roflumilast [Daliresp] 500 MCG) PO SCH (08:45)
--- NOTE | 2018-01-02 12:28 | Internal Med Progress Note ---
Hospitalist Progress Note - Encounter Date of Encounter: 01/02/18 Time of Encounter: 12:28 - Subjective Interval History: Patient seen and examined at bedside states that he continues to feel short of breath. Does not feel that he is back to his baseline. Complains of dyspnea on exertion - Exam Vitals: Temp Pulse Resp BP Pulse Ox 98.3 F 77 18 133/69 96 01/02/18 11:40 01/02/18 11:40 01/02/18 11:40 01/02/18 11:40 01/02/18 11:40 Exam: Constitutional: No acute distress Psych: AAO x 3 HEENT: NCAT Neck: supple Cardio: regular rate and rhythm Resp: Prolonged expiratory phase; continues to have expiratory wheezes, continues to have decreased air movement Abd: soft, non tender/non distended, positive bowel sounds Extremities: no edema appreciated Neuro: no focal deficits appreciated Lymph: no adenopahty apprecitated - Assessment and Plan (1) Acute exacerbation of chronic obstructive airways disease Current Visit: Yes Status: Acute Assessment and Plan: Still wheezing and some chest tightness. Pt will benefit form few more days of nebs.and IV steriods. -Continue IV steroids; unable to transition to orals currently -Continue Levaquin -Continue N-acetylcysteine -Continue bronchodilators -Maintain oxygen saturations between 88-92 percent -Chest x-ray today 01/02 Continues to experience wheezing decreased breath sounds -however he states he feels much better than he did yesterday We will continue with IV steroids unable to transition to orals at this time we will attempt to stepdown steroids tomorrow Continue with Levaquin on day 6 on a 7 day course Continue with N-acetylcysteine Continue bronchodilators Continue with oxygen titrated to maintain SPO2 greater 88% (2) Hyperlipidemia Current Visit: No Status: Chronic Assessment and Plan: -Continue Zocor (3) HTN (hypertension) Current Visit: No Status: Chronic Assessment and Plan: -Lsinopirl and Metoprolol. -Blood pressure controlled (4) Coronary artery disease Current Visit: No Status: Chronic Assessment and Plan: -12/27/17 form prior provider: Pt had chest tightness and pressure this morning after a bout of cough, He reported symptoms is similar when he had the [place] years ago. EKG showed ST-T depression at V4-V6. will check troponin, cardiology consulted. 12/31/17 -Patient with ischemic cardiomyopathy junction fraction between 35-40% -Cardiology notes reviewed -continue medical management -EKG is unchanged from prior per cardiology -Likely benefit from left heart catheterization or stress test after COPD exacerbation is resolved -Continue Plavix, beta blayne, RAYMOND inhibitor -Cardiology signed off likely outpatient cardiology follow-up 01/02 History of ischemic cardiomyopathy EF between 35-40% Continue medical management According to cardiology notes Patient would benefit from left heart catheter or stress test after COPD exacerbation is resolved Continue with Plavix and a blayne and RAYMOND inhibitor Cardiology has signed off outpatient cardiology follow-up (5) Neck swelling Current Visit: Yes Status: Acute Assessment and Plan: pt may follow up with PCP out pt for iatrogenic Aleida syndrome Electrolytes here are wnl and vitals have been stable. (6) History of heart failure Current Visit: Yes Status: Chronic Assessment and Plan: -Patient with chronic compensated heart failure with reduced ejection fraction -Systolic and diastolic dysfunction -Last echo 35-45% ejection fraction -Cardiology notes reviewed -Per cardiology, consider stress test versus left heart cath after current exacerbation of COPD is resolved (7) Acute on chronic respiratory failure with hypoxia and hypercapnia Current Visit: Yes Status: Acute Assessment and Plan: -Secondary to acute exacerbation of COPD. Chronic resp failure and on on 21/2 L NC at home at baseline. Most recent CT chest showing severe emphysema. -Pulmonology was following and signed off. -Continue IV steroids for now; -Continue Levaquin-day 6 of 7 day course - continue mucinex -Continue bronchodilators -Wean supplemental oxygen to maintain pulse ox symmetry between 88-92% DVT Prophylaxis: Heparin - Time Spent with Patient Total time spent is greater than 50% in coordination of care (as documented) at patient's floor/unit and/or counseling patient: Internal Medicine: Result - Labs CBC & Chem 7: 01/01/18 03:58 01/01/18 03:58 - ABG Interpretation ABG results: ABG ABG pH 7.38 pH Units (7.32-7.45) 12/25/17 15:56 ABG pCO2 58 mmHg (35-45) H 12/25/17 15:56 ABG pO2 85 mmHg (85-104) 12/25/17 15:56 ABG O2 Saturation 96 % (95-98) 12/25/17 15:56 Consult Discharge Plan - Plan Additional Instructions: Call Sally when you get home to have portable tanks delivered. [phone]. Referrals: Jesse Lemus DO [Primary Care Provider] - 01/07/18 10:30 am (2) Hyperlipidemia Qualifiers: Hyperlipidemia type: pure hypercholesterolemia Qualified Code(s): E78.00 - Pure hypercholesterolemia, unspecified; E78.0 - Pure hypercholesterolemia (3) HTN (hypertension) Qualifiers: Hypertension type: essential hypertension Qualified Code(s): I10 - Essential (primary) hypertension (4) Coronary artery disease Qualifiers: Coronary Disease-Associated Artery/Lesion type: bypass graft [place] vs. transplanted heart: [place] heart Associated angina: with stable angina Qualified Code(s): I25.708 - Atherosclerosis of coronary artery bypass graft(s) , unspecified, with other forms of angina pectoris
[2018-01-02] MEDS: MethylPREDNISolone 40 MG/ML VIAL IVP SCH ×2 (16:50→23:02)
[2018-01-03] MEDS: Ipratropium/Albuterol Neb 3 ML IH SCH ×7 (03:52→23:32)
[2018-01-03] MEDS: MethylPREDNISolone 40 MG/ML VIAL IVP SCH ×2 (05:06→13:00)
[2018-01-03] MEDS: Pantoprazole 40 MG VIAL IVP SCH ×2 (05:06→17:20)
[2018-01-03] MEDS: *HR* Heparin 5,000 UNIT/ML VIAL SQ SCH ×3 (05:06→22:28)
[2018-01-03 05:18] LABS: Mean Corpuscular HGB Conc 31.6 g/dL (31.6-35.5); Mean Corpuscular Hemoglobin 30.5 pg (28.0-33.3); Mean Corpuscular Volume 96.4 fL (83.0-100.0); Mean Platelet Volume 10.5 fL (9.4-12.4); Platelet Count 134 K/mcL (140-400); Red Blood Count 3.94 M/mcL (4.19-5.50); Red Cell Distribution Width 14.9 % (11.5-14.5)
[2018-01-03 05:35] LABS: BUN/Creatinine Ratio 36 (6-26); Blood Urea Nitrogen 27 mg/dL (8-23); Calcium 8.4 mg/dL (8.6-10.3); Carbon Dioxide 32 mEq/L (23-29); Chloride 102 mEq/L (98-107); Glucose 191 mg/dL (70-105); Osmolality,Calculated 302 (280-300); Potassium 4.4 mEq/L (3.5-5.1); Sodium 141 mEq/L (136-145); eGFR For Non-African Americans > 60 (> 60)
[2018-01-03 05:58] LABS: Lymphocytes # 1.1 K/mcL (0.6-4.6); Monocytes # 0.5 K/mcL (0.0-1.3); Neutrophils # 11.7 K/mcL (1.6-8.9); Platelet Estimate Normal (Normal); Toxic Granulation Present (Not Present)
[2018-01-03] MEDS: Budesonide/Formoterol 160/4.5 1 PUFF INH IH SCH ×2 (07:24→20:05)
[2018-01-03] MEDS: Metoprolol XL (24 HR) Succ 50 MG TAB.ER.24H PO SCH (08:56)
[2018-01-03] MEDS: Lactobacillus 1 EACH CAP.SPRINK PO SCH ×2 (08:56→20:23)
[2018-01-03] MEDS: Isosorbide MONOnitrate (24 HR) 30 MG TAB.ER.24H PO SCH (08:56)
[2018-01-03] MEDS: levoFLOXacin 500 MG TABLET PO SCH (08:56)
[2018-01-03] MEDS: *HR* Acetylcysteine 20% 600 MG/3 ML ORAL SYRINGE PO SCH (09:03)
--- NOTE | 2018-01-03 13:59 | Internal Med Progress Note ---
Hospitalist Progress Note - Encounter Date of Encounter: 01/03/18 Time of Encounter: 13:28 - Subjective Interval History: Patient seen and examined at bedside states that he feels a little better, does not feel that he is back to baseline as of yet. - Exam Vitals: Temp Pulse Resp BP Pulse Ox 98.0 F 81 18 121/63 96 01/03/18 11:42 01/03/18 11:42 01/03/18 11:49 01/03/18 11:42 01/03/18 11:49 Exam: Constitutional: No acute distress Psych: AAO x 3 HEENT: NCAT Neck: supple Cardio: regular rate and rhythm Resp: Prolonged expiratory phase; continues to have expiratory wheezes, airmovement appears to be improved Abd: soft, non tender/non distended, positive bowel sounds Extremities: no edema appreciated Neuro: no focal deficits appreciated Lymph: no adenopahty apprecitated - Assessment and Plan (1) Acute exacerbation of chronic obstructive airways disease Current Visit: Yes Status: Acute Assessment and Plan: Still wheezing and some chest tightness. Pt will benefit form few more days of nebs.and IV steriods. -Continue IV steroids; unable to transition to orals currently -Continue Levaquin -Continue N-acetylcysteine -Continue bronchodilators -Maintain oxygen saturations between 88-92 percent -Chest x-ray today 01/02 Continues to experience wheezing decreased breath sounds -however he states he feels much better than he did yesterday We will continue with IV steroids unable to transition to orals at this time we will attempt to stepdown steroids tomorrow Continue with Levaquin on day 6 on a 7 day course Continue with N-acetylcysteine Continue bronchodilators Continue with oxygen titrated to maintain SPO2 greater 88% 01/03 Still has wheezes however seems to be moving more air- I annalisa gaitan pulmonology recommending to attempt to wean steroid will place on orals and see how well he tolerates. Will consult pulmonology as needed completed Levaquin cont bronchodilators titrate O2 to maintain spo2 88-92% (2) Hyperlipidemia Current Visit: No Status: Chronic Assessment and Plan: -Continue Zocor (3) HTN (hypertension) Current Visit: No Status: Chronic Assessment and Plan: -Lsinopirl and Metoprolol. -Blood pressure controlled (4) Coronary artery disease Current Visit: No Status: Chronic Assessment and Plan: -12/27/17 form prior provider: Pt had chest tightness and pressure this morning after a bout of cough, He reported symptoms is similar when he had the [place] years ago. EKG showed ST-T depression at V4-V6. will check troponin, cardiology consulted. 12/31/17 -Patient with ischemic cardiomyopathy junction fraction between 35-40% -Cardiology notes reviewed -continue medical management -EKG is unchanged from prior per cardiology -Likely benefit from left heart catheterization or stress test after COPD exacerbation is resolved -Continue Plavix, beta blayne, RAYMOND inhibitor -Cardiology signed off likely outpatient cardiology follow-up 01/02 History of ischemic cardiomyopathy EF between 35-40% Continue medical management According to cardiology notes Patient would benefit from left heart catheter or stress test after COPD exacerbation is resolved Continue with Plavix and a blayne and RAYMOND inhibitor Cardiology has signed off outpatient cardiology follow-up 01/03 Stable at this time History of ischemic cardiomyopathy EF between 35-40% Continue medical management According to cardiology notes Patient would benefit from left heart catheter or stress test after COPD exacerbation is resolved Continue with Plavix and a blayne and RAYMOND inhibitor Cardiology has signed off outpatient cardiology follow-up (5) Neck swelling Current Visit: Yes Status: Acute Assessment and Plan: pt may follow up with PCP out pt for iatrogenic Aleida syndrome Electrolytes here are wnl and vitals have been stable. (6) History of heart failure Current Visit: Yes Status: Chronic Assessment and Plan: -Patient with chronic compensated heart failure with reduced ejection fraction -Systolic and diastolic dysfunction -Last echo 35-45% ejection fraction -Cardiology notes reviewed -Per cardiology, consider stress test versus left heart cath after current exacerbation of COPD is resolved (7) Acute on chronic respiratory failure with hypoxia and hypercapnia Current Visit: Yes Status: Acute Assessment and Plan: -Secondary to acute exacerbation of COPD. Chronic resp failure and on on 21/2 L NC at home at baseline. Most recent CT chest showing severe emphysema. -Pulmonology was following and signed off. -Convert to oral steroids -levaquin completed - continue mucinex -Continue bronchodilators -Wean supplemental oxygen to maintain pulse ox symmetry between 88-92% DVT Prophylaxis: Heparin - Time Spent with Patient Total time spent is greater than 50% in coordination of care (as documented) at patient's floor/unit and/or counseling patient: Internal Medicine: Result - Labs CBC & Chem 7: 01/03/18 04:50 01/03/18 04:50 Labs: Short CBC 01/03/18 Range/Units 04:50 WBC 13.6 H (4.3-11.1) K/mcL Hgb 12.0 L (12.9-16.9) g/dL Hct 38.0 (37.5-50.1) % Plt Count 134 L (140-400) K/mcL Neutrophils # 11.7 H (1.6-8.9) K/mcL BMP 01/03/18 04:50 Sodium 141 Potassium 4.4 Chloride 102 Carbon Dioxide 32 H BUN 27 H Creatinine 0.75 Glucose 191 H Calcium 8.4 L - ABG Interpretation ABG results: ABG ABG pH 7.38 pH Units (7.32-7.45) 12/25/17 15:56 ABG pCO2 58 mmHg (35-45) H 12/25/17 15:56 ABG pO2 85 mmHg (85-104) 12/25/17 15:56 ABG O2 Saturation 96 % (95-98) 12/25/17 15:56 Consult Discharge Plan - Plan Additional Instructions: Call Sally when you get home to have portable tanks delivered. [phone]. Referrals: Jesse Lemus DO [Primary Care Provider] - 01/07/18 10:30 am (2) Hyperlipidemia Qualifiers: Hyperlipidemia type: pure hypercholesterolemia Qualified Code(s): E78.00 - Pure hypercholesterolemia, unspecified; E78.0 - Pure hypercholesterolemia (3) HTN (hypertension) Qualifiers: Hypertension type: essential hypertension Qualified Code(s): I10 - Essential (primary) hypertension (4) Coronary artery disease Qualifiers: Coronary Disease-Associated Artery/Lesion type: bypass graft [place] vs. transplanted heart: [place] heart Associated angina: with stable angina Qualified Code(s): I25.708 - Atherosclerosis of coronary artery bypass graft(s) , unspecified, with other forms of angina pectoris
[2018-01-03] MEDS ORDERED: predniSONE 20 MG TABLET PO SCH (17:00)
[2018-01-03] MEDS ORDERED: Levofloxacin 750 MG/150 ML 750 MG/150 ML BAG IVPB SCH (21:00)
[2018-01-03] MEDS ORDERED: *HR* LORazepam 2 MG/ML VIAL IVP ONE (23:02)
--- NOTE | 2018-01-03 23:08 | Event Note ---
Date of Encounter: 01/03/18 Time of Encounter: 20:01 Alerted by pts. nurse VIPUL Mendez that patient had become short of breath and coughed up blood-tinged sputum. Patient reported this was the first time his sputum have been this color and up to this point sputum had been clear. Nurse reported lung sounds as diminished and wheezing. Nurse stated when elevating head of bed, patient reported severe crushing pain in left chest 8/10 with feeling of his oxygen being cut off. SpO2 95% and HR 96 at the time. 1V CXR ordered stat which showed new consolidation in the left mid to lower lung, nonspecific, the suggesting pneumonia. Alveolar hemorrhage could be contributing to the density as well which should be followed to resolution. IVPB levaquin ordered to restart @ 750 mg daily w/first dose now. Stat sputum culture ordered. Notified at 22:55 the patient still complaining of chest pain on the left side but vitals stable. Patient estimate of something for pain or something to help him sleep due to coughing and congestion. Nurse instructed to get BP which was 118/66 with heart rate of 105. Nurse instructed BP too low for opioids so 0.5 mg IVP Ativan ordered. Pts. last breathing tx was @ 16:12 and he was refusing another d/t coughing. Pt. did take ordered Symbicort. Pt. to be monitored closely overnight.
[2018-01-04] MEDS ORDERED: methylPREDNISolone 125 MG/2 ML VIAL IVP ONE ×2 (00:01→13:22)
[2018-01-04 00:15] LABS: ABG Base Excess 8 mEq/L (-2 to 3); ABG HCO3 38 mEq/L (21-27); ABG Oxygen Saturation 86 % (95-98); ABG PCO2 74 mmHg (35-45); ABG PH 7.32 pH Units (7.32-7.45); ABG PO2 58 mmHg (85-104); ABG TCO2 40 mEq/L (20-26)
[2018-01-04] MEDS: Ipratropium/Albuterol Neb 3 ML IH SCH ×6 (00:15→19:53)
[2018-01-04] MEDS ORDERED: Furosemide 40 MG/4 ML VIAL IVP ONE (00:15)
[2018-01-04] MEDS ORDERED: *HR* LORazepam 2 MG/ML VIAL IVP ONE ×2 (00:17→10:51)
[2018-01-04] MEDS ORDERED: Furosemide 40 MG/4 ML VIAL ONE (00:27)
[2018-01-04] MEDS ORDERED: *HR* LORazepam 2 MG/ML VIAL ONE (00:27)
[2018-01-04 00:56] LABS: Basophils % 0.8 %; Hematocrit 46.1 % (37.5-50.1); Immature Granulocytes % 1.6 % (0-4); Lymphocytes # 0.2 K/mcL (0.6-4.6); Lymphocytes % 4.3 %; Mean Corpuscular HGB Conc 31.7 g/dL (31.6-35.5); Mean Corpuscular Hemoglobin 30.4 pg (28.0-33.3); Mean Platelet Volume 10.6 fL (9.4-12.4); Monocytes # 0.1 K/mcL (0.0-1.3); Neutrophils # 4.7 K/mcL (1.6-8.9); Nucleated Red Blood Cells 0.8 /100 WBC (0); Platelet Count 132 K/mcL (140-400); Red Cell Distribution Width 15.1 % (11.5-14.5); Segmented Neutrophils % 91.3 %
[2018-01-04 01:04] LABS: Hemoglobin 14.6 g/dL (12.9-16.9)
[2018-01-04] MEDS ORDERED: Isovue-370 500 ML INFUS..BTL IV ONE (01:07)
[2018-01-04] MEDS ORDERED: OXYCODONE Oral CONC 10 MG/0.5 ML ORAL.SYG SL ONE (01:09)
[2018-01-04] MEDS ORDERED: *HR* Morphine 2 MG/ML SYRINGE IVP ONE ×2 (01:20→01:35)
[2018-01-04 01:22] LABS: Platelet Estimate Normal (Normal)
[2018-01-04 01:35] LABS: Hematocrit 45.3 % (37.5-50.1); Hemoglobin 14.2 g/dL (12.9-16.9); Mean Corpuscular HGB Conc 31.3 g/dL (31.6-35.5); Mean Corpuscular Volume 95.8 fL (83.0-100.0); Mean Platelet Volume 10.5 fL (9.4-12.4); Nucleated Red Blood Cells 1.3 /100 WBC (0); Platelet Count 128 K/mcL (140-400); Red Blood Count 4.73 M/mcL (4.19-5.50); Red Cell Distribution Width 15.3 % (11.5-14.5)
[2018-01-04 01:49] LABS: BUN/Creatinine Ratio 31 (6-26); Blood Urea Nitrogen 31 mg/dL (8-23); Calcium 8.7 mg/dL (8.6-10.3); Carbon Dioxide 33 mEq/L (23-29); Chloride 102 mEq/L (98-107); Glucose 95 mg/dL (70-105); Osmolality,Calculated 298 (280-300); Potassium 5.6 mEq/L (3.5-5.1); Sodium 141 mEq/L (136-145); eGFR For Non-African Americans > 60 (> 60)
[2018-01-04 02:41] LABS: Lymphocytes # 0.4 K/mcL (0.6-4.6); Monocytes # 0.3 K/mcL (0.0-1.3); Neutrophils # 4.2 K/mcL (1.6-8.9); Platelet Estimate Slight Decrease (Normal)
[2018-01-04 04:44] LABS: ABG Base Excess 7 mEq/L (-2 to 3); ABG HCO3 36 mEq/L (21-27); ABG Oxygen Saturation 91 % (95-98); ABG PCO2 71 mmHg (35-45); ABG PH 7.32 pH Units (7.32-7.45); ABG PO2 68 mmHg (85-104); ABG TCO2 39 mEq/L (20-26)
[2018-01-04] MEDS: Pantoprazole 40 MG VIAL IVP SCH ×2 (05:58→16:26)
[2018-01-04] MEDS: *HR* Heparin 5,000 UNIT/ML VIAL SQ SCH ×2 (05:58→15:22)
--- NOTE | 2018-01-04 06:16 | Event Note ---
Date of Encounter: 01/04/18 Time of Encounter: 06:10 Was notified by Ruddy nurse practitioner, of worsening respiratory status. ABG showed hypoxic hypercapnic respiratory failure. Upon initial assessment of the patient he was in mild respiratory distress. Labs were reviewed which did show mild elevation in his white blood cell count. Chest x-ray and CT shows new left mid lower lung consolidation concerning for pneumonia. Patient was restarted on vancomycin and Zosyn. He was given a single dose of IV Solu- Medrol as well as one-time dose of 40 mg of IV Lasix. Trial of BiPAP was initiated however patient was very uncomfortable with the BiPAP on, continuously reaching to try and remove it. He was also complaining of significant abdominal pain. Abdomen did appear distended and firm with tenderness diffusely to palpation. A CT scan of the abdomen was performed which was unremarkable. Eventually patient was given to 4 mg of morphine IV push which improved his anxiety and breathing.
[2018-01-04] MEDS ORDERED: 0.9 % Sodium Chloride 250 ML ONE (06:41)
[2018-01-04] MEDS: 0.9 % Sodium Chloride 250 ML IVC ONE ×2 (06:49→06:52)
[2018-01-04] MEDS ORDERED: Ondansetron 4 MG/2 ML VIAL IVP PRN (07:45)
[2018-01-04] MEDS: Piperacillin/Tazobactam 3.375 GM in 0.9 % Sodium Chloride Mini Bag 100 ML IVPB SCH ×2 (08:00→16:26)
[2018-01-04] MEDS: Lactobacillus 1 EACH CAP.SPRINK PO SCH (08:01)
--- NOTE | 2018-01-04 08:38 | Pulmonology Progress Note ---
<Ron Frenchceci M - Last Filed: 01/04/18 11:04> Date of Encounter: 01/04/18 Objective PUL Vital signs: Last Vital Signs Temp 99.6 F 01/04/18 09:10 Pulse 114 01/04/18 09:10 Resp 18 01/04/18 09:10 BP 94/69 01/04/18 09:10 Pulse Ox 91 01/04/18 09:15 Results - Laboratory Findings CBC and BMP: 01/04/18 01:24 01/04/18 08:13 ABG ABG pH 7.32 pH Units (7.32-7.45) 01/04/18 04:35 ABG pCO2 71 mmHg (35-45) H* 01/04/18 04:35 ABG pO2 68 mmHg (85-104) L 01/04/18 04:35 ABG O2 Saturation 91 % (95-98) L 01/04/18 04:35 Abnormal lab findings: Abnormal lab results MCHC 31.3 g/dL (31.6-35.5) L 01/04/18 01:24 RDW 15.3 % (11.5-14.5) H 01/04/18 01:24 Plt Count 128 K/mcL (140-400) L 01/04/18 01:24 Band Neutrophils % 12.0 % (0-4) H 01/04/18 01:24 Metamyelocytes % 6.0 % (0) H 01/04/18 01:24 Myelocytes % 2.0 % (0) H 01/03/18 04:50 Lymphocytes # 0.4 K/mcL (0.6-4.6) L 01/04/18 01:24 Nucleated RBCs/100 WBC 1.3 /100 WBC (0) H 01/04/18 01:24 Toxic Granulation Present (Not Present) A 01/03/18 04:50 Platelet Estimate Slight Decrease (Normal) L 01/04/18 01:24 ABG pCO2 71 mmHg (35-45) H* 01/04/18 04:35 ABG pO2 68 mmHg (85-104) L 01/04/18 04:35 ABG HCO3 36 mEq/L (21-27) H 01/04/18 04:35 ABG Total CO2 39 mEq/L (20-26) H 01/04/18 04:35 ABG O2 Saturation 91 % (95-98) L 01/04/18 04:35 ABG Base Excess 7 mEq/L (-2 to 3) H 01/04/18 04:35 Potassium 6.0 mEq/L (3.5-5.1) H 01/04/18 08:13 Carbon Dioxide 33 mEq/L (23-29) H 01/04/18 00:36 BUN 31 mg/dL (8-23) H 01/04/18 00:36 BUN/Creatinine Ratio 31 (6-26) H 01/04/18 00:36 POC Glucose 59 mg/dL (70-99) L 01/04/18 10:21 Lactic Acid 3.4 mmol/L (0.5-2.2) H 01/04/18 10:29 Troponin I 0.11 ng/mL (< 0.04) H* 01/04/18 06:39 B-Natriuretic Peptide 314 pg/mL (Less than 100) H 01/04/18 00:39 Serum Total Protein 5.9 g/dL (6.4-8.9) L 12/25/17 05:47 Globulin 2.2 g/dL (2.4-3.5) L 12/25/17 05:47 Enterobacteriac sp PCR DETECTED (Not Detect) A 01/04/18 00:36 E. coli (PCR) DETECTED (Not Detect) A 01/04/18 00:36 - Microbiology Findings Microbiology Findings: Microbiology, Last 48 Hours 01/04/18 00:36 Blood Culture - Preliminary Peripheral Venipuncture Gram Negative Don 01/04/18 00:36 Blood Culture - Preliminary Peripheral Venipuncture Gram Negative Don 01/04/18 04:30 Legionella Antigen - Final Urine,Clean Catch Streptococcus pneumoniae Antigen (M - Final 01/03/18 20:56 Sputum Culture - Preliminary Sputum - Clinical Findings Intake & Output: Intake & Output 01/03/18 01/04/18 01/04/18 23:59 07:59 15:59 Intake Total 750 / 750 Output Total 100 / 100 150 / 150 90 / 90 Balance 650 / 650 -150 / -150 -90 / -90 Weight 75.3 kg Consult Discharge Plan - Plan Additional Instructions: Call Sally when you get home to have portable tanks delivered. [phone]. Referrals: Jesse Lemus, [Primary Care Provider] - 01/07/18 10:30 am - Attending Attestation I examined this patient and my medical decision-making was reviewed with the Resident Physician. I agree with the documented findings, disposition and treatment plan as described except to the extent set forth below. Patient seen and examined. Labs, radiology, chart personally reviewed. 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 I have evaluated patient and the bedside with the nurse practitioner and he is clearly in respiratory distress and unfortunately he is not tolerating noninvasive ventilation. Patient with history of underlying COPD. Patient has been in the hospital for a few days now and hospital-acquired condition such as pneumonia is a possibility. Patient is on broad-spectrum antibiotics and due to his acute on chronic hypoxic respiratory failure and underlying COPD as well as not tolerating noninvasive ventilation he will be transferred to close monitoring in ICU. This was discussed with the primary team and thank you <Tulio Cole - Last Filed: 01/04/18 17:22> Date of Encounter: 01/04/18 Time of Encounter: 10:00 Assessment and Plan (1) Acute and chronic respiratory failure with hypoxia Current Visit: Yes Status: Acute - likely secondary to Hx of COPD. and has been hospitalized for the last 11 day for treatment of COPD, completed a course Levaquin. His most recent chest x- ray showed consolidation in left mid to lower lung suggesting pneumonia (likey HCAP), currently on vancomycin/Zosyn . Patient had a chest CT about a week ago which showed severe emphysema and a left lobe pulmonary nodule (4.7mm) . There was evidence of calcified pleural plaques, therefore one cannot rule out the possibility of an intersitital lung disease. -on physical exam patient was in respiratory distress. He also had a distended abdomen- CT abdomen was negative for any acute abdominopelvic findings. -He was on BiPAP overnight, yet his most recent ABG showed evidence of hypoxemia (PO2 : 68) with worsening respiratory acidosis (pH 7.32, pCO2: 71). -With his worsening respiratory status despite the BiPAP, patient has been transferred to the ICU for further management. (2) Acute exacerbation of chronic obstructive airways disease Current Visit: Yes Status: Acute -Patient has a history of COPD and is on 2.5 L of home oxygen. -On physical examination patient had bilateral respiratory wheezing -Currently on soluMedrol 125 mg, DuoNeb's PRN, Symbicort 2 puffs twice a day, N- acetylcysteine, and Singulair. spiriva not recommended in acute flare because it could worsen it. -Currently on 9 L of oxygen, transferred to the ICU due to respiratory distress (3) Coronary artery disease Current Visit: No Status: Chronic -Patient has a history of CAD status post CABG and multivessel PCI. He is on home aspirin and Plavix. -He has had some ST-T depression in V4 V6 in his most recent EKG about a week ago. TTE shows EF 35-40%.Mildly dilated left ventricle. -Patient has been recommended to continue aspirin and Plavix for minimum of 1 year uninterrupted. Also to be compliant on statins and beta blockers Qualifiers: Coronary Disease-Associated Artery/Lesion type: bypass graft [place] vs. transplanted heart: [place] heart Associated angina: with stable angina Qualified Code(s): I25.708 - Atherosclerosis of coronary artery bypass graft(s) , unspecified, with other forms of angina pectoris (4) Former smoker Current Visit: Yes Status: Acute Subjective Principal diagnosis: SOB Interval history: Patient was having shortness of breath ambulating from the bed to the restroom. He was requiring more oxygen overnight and was eventually transitioned to BiPAP. His ABG showed worsening respiratory acidosis with metabolic compensation. Patient was hypoxemic despite being on BiPAP and was eventually transferred to ICU for further management. Objective PUL Vital signs: Last Vital Signs Temp 99.2 F 01/04/18 06:15 Pulse 100 01/04/18 06:15 Resp 18 01/04/18 07:50 BP 98/64 01/04/18 07:17 Pulse Ox 94 01/04/18 07:50 General appearance: agitated Effort: very labored Auscultation: bilateral: wheezes Cardiovascular: regular rate and rhythm Gastrointestinal: tender (distended, no rebound tenderness) Results - Laboratory Findings CBC and BMP: 01/04/18 01:24 01/04/18 10:48 ABG ABG pH 7.32 pH Units (7.32-7.45) 01/04/18 04:35 ABG pCO2 71 mmHg (35-45) H* 01/04/18 04:35 ABG pO2 68 mmHg (85-104) L 01/04/18 04:35 ABG O2 Saturation 91 % (95-98) L 01/04/18 04:35 Abnormal lab findings: Abnormal lab results MCHC 31.3 g/dL (31.6-35.5) L 01/04/18 01:24 RDW 15.3 % (11.5-14.5) H 01/04/18 01:24 Plt Count 128 K/mcL (140-400) L 01/04/18 01:24 Band Neutrophils % 12.0 % (0-4) H 01/04/18 01:24 Metamyelocytes % 6.0 % (0) H 01/04/18 01:24 Myelocytes % 2.0 % (0) H 01/03/18 04:50 Lymphocytes # 0.4 K/mcL (0.6-4.6) L 01/04/18 01:24 Nucleated RBCs/100 WBC 1.3 /100 WBC (0) H 01/04/18 01:24 Toxic Granulation Present (Not Present) A 01/03/18 04:50 Platelet Estimate Slight Decrease (Normal) L 01/04/18 01:24 ABG pCO2 71 mmHg (35-45) H* 01/04/18 04:35 ABG pO2 68 mmHg (85-104) L 01/04/18 04:35 ABG HCO3 36 mEq/L (21-27) H 01/04/18 04:35 ABG Total CO2 39 mEq/L (20-26) H 01/04/18 04:35 ABG O2 Saturation 91 % (95-98) L 01/04/18 04:35 ABG Base Excess 7 mEq/L (-2 to 3) H 01/04/18 04:35 Potassium 5.6 mEq/L (3.5-5.1) H D 01/04/18 00:36 Carbon Dioxide 33 mEq/L (23-29) H 01/04/18 00:36 BUN 31 mg/dL (8-23) H 01/04/18 00:36 BUN/Creatinine Ratio 31 (6-26) H 01/04/18 00:36 POC Glucose 106 mg/dL (70-99) H 01/03/18 21:35 Troponin I 0.11 ng/mL (< 0.04) H* 01/04/18 06:39 B-Natriuretic Peptide 314 pg/mL (Less than 100) H 01/04/18 00:39 Serum Total Protein 5.9 g/dL (6.4-8.9) L 12/25/17 05:47 Globulin 2.2 g/dL (2.4-3.5) L 12/25/17 05:47 - Microbiology Findings Microbiology Findings: Microbiology, Last 48 Hours 01/04/18 04:30 Legionella Antigen - Final Urine,Clean Catch Streptococcus pneumoniae Antigen (M - Final 01/04/18 00:36 Blood Culture - Preliminary Peripheral Venipuncture Culture is incubating and being continuously monitored for growth. Final report to follow. 01/04/18 00:36 Blood Culture - Preliminary Peripheral Venipuncture Culture is incubating and being continuously monitored for growth. Final report to follow. 01/03/18 20:56 Sputum Culture - Preliminary Sputum - Clinical Findings Intake & Output: Intake & Output 01/03/18 01/04/18 01/04/18 23:59 07:59 15:59 Intake Total 750 / 750 Output Total 100 / 100 150 / 150 Balance 650 / 650 -150 / -150 Weight 75.3 kg
[2018-01-04] MEDS ORDERED: Acetaminophen 325 MG TABLET PO ONE (09:09)
[2018-01-04] MEDS ORDERED: Ringers Solution, Lactated 1,000 ML ONE (10:09)
[2018-01-04] MEDS ORDERED: Albuterol 2.5 MG/3 ML NEBULIZER ONE (10:11)
[2018-01-04] MEDS ORDERED: 0.9 % Sodium Chloride 1,000 ML ONE (10:14)
[2018-01-04] MEDS ORDERED: 0.9 % Sodium Chloride 1,000 ML IVC ONE ×2 (10:17→11:13)
--- NOTE | 2018-01-04 10:17 | Internal Med Progress Note ---
Hospitalist Progress Note - Encounter Date of Encounter: 01/04/18 Time of Encounter: 08:00 - Subjective Interval History: Patient seen and examined at bedside -he is diaphoretic has labored breathing complains of abd pain. I did review notes from last night Apparently developed resp distress overnight- CXR show pneumonia He was placed on Bipap- blood cultures drawn and started on Vanc and Zosyn. This AM sats are 85% on high flow 02 He is not tolerating Bipap I did speak with Dr Lott this am updated him on changes- He will evaluate and decide if need transfer to ICU for possible intubation . Discussed treatment plan with patient who verbalized understanding - Exam Vitals: Temp Pulse Resp BP Pulse Ox 99.6 F 114 18 94/69 89 01/04/18 09:10 01/04/18 09:10 01/04/18 09:10 01/04/18 09:10 01/04/18 09:10 Exam: Constitutional: Resp distress Psych: AAO x 3 HEENT: NCAT Neck: supple Cardio: regular rate and rhythm Resp: Prolonged expiratory phase; continues to have expiratory wheezes, crackles Abd: soft, non tender/non distended, positive bowel sounds Extremities: no edema appreciated Neuro: no focal deficits appreciated Lymph: no adenopahty apprecitated - Assessment and Plan (1) Acute exacerbation of chronic obstructive airways disease Current Visit: Yes Status: Acute Assessment and Plan: Still wheezing and some chest tightness. Pt will benefit form few more days of nebs.and IV steriods. -Continue IV steroids; unable to transition to orals currently -Continue Levaquin -Continue N-acetylcysteine -Continue bronchodilators -Maintain oxygen saturations between 88-92 percent -Chest x-ray today 01/02 Continues to experience wheezing decreased breath sounds -however he states he feels much better than he did yesterday We will continue with IV steroids unable to transition to orals at this time we will attempt to stepdown steroids tomorrow Continue with Levaquin on day 6 on a 7 day course Continue with N-acetylcysteine Continue bronchodilators Continue with oxygen titrated to maintain SPO2 greater 88% 01/03 Still has wheezes however seems to be moving more air- I did curbside pulmonology recommending to attempt to wean steroid will place on orals and see how well he tolerates. Will consult pulmonology as needed completed Levaquin cont bronchodilators titrate O2 to maintain spo2 88-92% 01/03 wheezing worsening resp effort- on and off Bipap CXR reveals pneumonia - blood cultures Vanc zosyn Bronchodilators (2) Hyperlipidemia Current Visit: No Status: Chronic Assessment and Plan: -Continue Zocor (3) HTN (hypertension) Current Visit: No Status: Chronic Assessment and Plan: -Lsinopirl and Metoprolol. -Blood pressure controlled (4) Coronary artery disease Current Visit: No Status: Chronic Assessment and Plan: -12/27/17 form prior provider: Pt had chest tightness and pressure this morning after a bout of cough, He reported symptoms is similar when he had the [place] years ago. EKG showed ST-T depression at V4-V6. will check troponin, cardiology consulted. 12/31/17 -Patient with ischemic cardiomyopathy junction fraction between 35-40% -Cardiology notes reviewed -continue medical management -EKG is unchanged from prior per cardiology -Likely benefit from left heart catheterization or stress test after COPD exacerbation is resolved -Continue Plavix, beta blayne, RAYMOND inhibitor -Cardiology signed off likely outpatient cardiology follow-up 01/02 History of ischemic cardiomyopathy EF between 35-40% Continue medical management According to cardiology notes Patient would benefit from left heart catheter or stress test after COPD exacerbation is resolved Continue with Plavix and a blayne and RAYMOND inhibitor Cardiology has signed off outpatient cardiology follow-up 01/03 Stable at this time History of ischemic cardiomyopathy EF between 35-40% Continue medical management According to cardiology notes Patient would benefit from left heart catheter or stress test after COPD exacerbation is resolved Continue with Plavix and a blayne and RAYMOND inhibitor Cardiology has signed off outpatient cardiology follow-up 01/04 Troponin elevated this am most likely from demand ischemia - History of ischemic cardiomyopathy EF between 35-40% Continue medical management According to cardiology notes Patient would benefit from left heart catheter or stress test after COPD exacerbation is resolved Continue with Plavix and a blayne and RAYMOND inhibitor Cardiology has signed off outpatient cardiology follow-up- consult as needed (5) Neck swelling Current Visit: Yes Status: Acute Assessment and Plan: pt may follow up with PCP out pt for iatrogenic Aleida syndrome Electrolytes here are wnl and vitals have been stable. (6) History of heart failure Current Visit: Yes Status: Chronic Assessment and Plan: -Patient with chronic compensated heart failure with reduced ejection fraction -Systolic and diastolic dysfunction -Last echo 35-45% ejection fraction -Cardiology notes reviewed -Per cardiology, consider stress test versus left heart cath after current exacerbation of COPD is resolved 01/04 appears septic at this time will be cautious with fluid resuscitation (7) Acute on chronic respiratory failure with hypoxia and hypercapnia Current Visit: Yes Status: Acute Assessment and Plan: -Secondary to acute exacerbation of COPD. Chronic resp failure and on on 21/2 L NC at home at baseline. Most recent CT chest showing severe emphysema. -Pulmonology was following and signed off. -Convert to oral steroids -levaquin completed - continue mucinex -Continue bronchodilators -Wean supplemental oxygen to maintain pulse ox symmetry between 88-92% 01/04 Patient has developed pneumonia on top of COPD IV steroids not tolerating Bipap may need intubated- pulmonary consulted- transfer to ICU ABG at 4 am pH 7.32 pCO@ 71 pO2 68 HCO3 36 o2 sat 91% (8) Pneumonia Current Visit: Yes Status: Acute Assessment and Plan: developed resp distress overnight- sats in 80, requiring Bipap support crackles and wheezes CXR impression New consolidation in the left mid to lower lung, nonspecific, but suggesting pneumonia. Alveolar hemorrhage could be contributing to that density is well. That should be followed to resolution. blood cultures drawn Legionella and strep antigen Vanc and zosyn bronchodilators Bipap pulmonology-transfer possible intubation - Time Spent with Patient Total time spent is greater than 50% in coordination of care (as documented) at patient's floor/unit and/or counseling patient: Internal Medicine: Result - Labs CBC & Chem 7: 01/04/18 01:24 01/04/18 08:13 Labs: Short CBC 01/04/18 01/04/18 Range/Units 00:36 01:24 WBC 5.1 D 5.3 (4.3-11.1) K/mcL Hgb 14.6 D 14.2 (12.9-16.9) g/dL Hct 46.1 45.3 (37.5-50.1) % Plt Count 132 L 128 L (140-400) K/mcL Neutrophils # 4.7 4.2 (1.6-8.9) K/mcL BMP 01/04/18 01/04/18 00:36 08:13 Sodium 141 Potassium 5.6 H D 6.0 H Chloride 102 Carbon Dioxide 33 H BUN 31 H Creatinine 1.01 Glucose 95 Calcium 8.7 Cardiac Enzymes 01/04/18 01/04/18 Range/Units 01:24 06:39 Troponin I 0.09 H* 0.11 H* (< 0.04) ng/mL - ABG Interpretation ABG results: ABG ABG pH 7.32 pH Units (7.32-7.45) 01/04/18 04:35 ABG pCO2 71 mmHg (35-45) H* 01/04/18 04:35 ABG pO2 68 mmHg (85-104) L 01/04/18 04:35 ABG O2 Saturation 91 % (95-98) L 01/04/18 04:35 - Impressions Impressions Chest X-Ray 01/03/18 20:03 IMPRESSION: New consolidation in the left mid to lower lung, nonspecific, but suggesting pneumonia. Alveolar hemorrhage could be contributing to that density is well. That should be followed to resolution. D/ / Florentino Toribio MD / Florentino Toribio MD Interpreting Provider: Florentino Toribio MD Abdomen/Pelvis CT 01/04/18 01:07 IMPRESSION: New left basilar airspace consolidation is suspicious for pneumonia versus aspiration event. No acute abdominopelvic findings. D/ / Dangelo Adrian / Dangelo Adrian Interpreting Provider: Dangelo Adrian Consult Discharge Plan - Plan Additional Instructions: Call Sally when you get home to have portable tanks delivered. [phone]. Referrals: Jesse Lemus DO [Primary Care Provider] - 01/07/18 10:30 am (2) Hyperlipidemia Qualifiers: Hyperlipidemia type: pure hypercholesterolemia Qualified Code(s): E78.00 - Pure hypercholesterolemia, unspecified; E78.0 - Pure hypercholesterolemia (3) HTN (hypertension) Qualifiers: Hypertension type: essential hypertension Qualified Code(s): I10 - Essential (primary) hypertension (4) Coronary artery disease Qualifiers: Coronary Disease-Associated Artery/Lesion type: bypass graft [place] vs. transplanted heart: [place] heart Associated angina: with stable angina Qualified Code(s): I25.708 - Atherosclerosis of coronary artery bypass graft(s) , unspecified, with other forms of angina pectoris (8) Pneumonia Qualifiers: Pneumonia type: due to unspecified organism Laterality: left Lung location: unspecified part of lung Qualified Code(s): J18.9 - Pneumonia, unspecified organism
[2018-01-04] MEDS ORDERED: *HR* Dextrose 50 % in Water (Syg) 50 ML SYRINGE ONE (10:20)
[2018-01-04 10:34] LABS: Acinetobacter baumannii by PCR Not Detected (Not Detect); Candida albicans by PCR Not Detected (Not Detect); Candida glabrata by PCR Not Detected (Not Detect); Candida krusei by PCR Not Detected (Not Detect); Candida parapsilosis by PCR Not Detected (Not Detect); Candida tropicalis by PCR Not Detected (Not Detect); Enterobacter cloacae Cmplx PCR Not Detected (Not Detect); Enterobacteriaceae by PCR DETECTED (Not Detect); Enterococcus by PCR Not Detected (Not Detect); Escherichia coli by PCR DETECTED (Not Detect); Klebsiella oxytoca by PCR Not Detected (Not Detect); Klebsiella pneumoniae by PCR Not Detected (Not Detect); Proteus by PCR Not Detected (Not Detect); Pseudomonas aeruginosa by PCR Not Detected (Not Detect); Serratia marcescens by PCR Not Detected (Not Detect); Staphylococcus aureus by PCR Not Detected (Not Detect); Staphylococcus by PCR Not Detected (Not Detect); Streptococcus agalactiae(B)PCR Not Detected (Not Detect); Streptococcus by PCR Not Detected (Not Detect); Streptococcus pneumoniae PCR Not Detected (Not Detect); Streptococcus pyogenes (A) PCR Not Detected (Not Detect); blaKPC Carbapenem-Resist Gene Not Detected (Not Detect); mecA Methicillin-Resist Gene Not Detected (Not Detect); vanA/B Vancomycin-Resist Genes Not Detected (Not Detect)
[2018-01-04] MEDS ORDERED: *HR* FentaNYL (PF) 100 MCG/2 ML VIAL IVP ONE (10:47)
[2018-01-04] MEDS ORDERED: *HR* FentaNYL (PF) 100 MCG/2 ML VIAL ONE (10:53)
[2018-01-04] MEDS ORDERED: *HR* LORazepam 2 MG/ML VIAL IVP PRN (10:53)
[2018-01-04] MEDS: Budesonide/Formoterol 160/4.5 1 PUFF INH IH SCH ×2 (10:58→19:53)
[2018-01-04] MEDS ORDERED: Albuterol 2.5 MG/3 ML NEBULIZER IH PRN (10:59)
[2018-01-04] MEDS ORDERED: Dexmedetomidine HCl 400 MCG/100 ML MLS IVC ONE (11:21)
[2018-01-04] MEDS: Metoprolol XL (24 HR) Succ 50 MG TAB.ER.24H PO SCH (11:25)
[2018-01-04] MEDS: Isosorbide MONOnitrate (24 HR) 30 MG TAB.ER.24H PO SCH (11:25)
[2018-01-04] MEDS ORDERED: Propofol 500 MG/50 ML INFUS..BTL ONE (11:26)
[2018-01-04] MEDS: Norepinephrine 4 MG in D5% in Water 250 ML IVC SCH ×4 (11:28→19:12)
--- NOTE | 2018-01-04 11:58 | Sepsis Event Note ---
<Elder Hernández - Last Filed: 01/04/18 12:05> Sepsis Event Note - Evaluation Sepsis Screen: Sepsis Risk Current Stage of Suspected Sepsis: septic shock Possible Source of Sepsis: pulmonary - Focused Exam Date of Encounter: 01/04/18 Time of Encounter: 12:06 Vital Signs: Vital Signs Temp Pulse Resp BP Pulse Ox 01/04/18 09:15 91 01/04/18 09:10 99.6 F 114 18 94/69 89 01/04/18 07:50 18 94 01/04/18 07:17 98/64 01/04/18 06:31 84/64 01/04/18 06:15 99.2 F 100 18 88/64 94 01/04/18 04:03 17 94 01/04/18 02:51 98/70 01/04/18 01:57 99.4 F 104 27 153/58 95 01/04/18 00:25 28 98 01/04/18 00:15 26 95 01/04/18 00:03 98.8 F 122 22 118/55 91 Respiratory Exam: Present: mechanically ventilated <Michael Villarreal W - Last Filed: 01/04/18 19:00> Sepsis Event Note - Focused Exam Vital Signs: Vital Signs Temp Pulse Resp BP Pulse Ox 01/04/18 18:00 91 24 28/21 01/04/18 17:00 94 24 82/60 01/04/18 16:43 24 107/68 01/04/18 16:13 24 106/68 01/04/18 16:00 93 24 80/56 01/04/18 15:00 100 24 118/23 01/04/18 13:00 99 20 93/38 100 01/04/18 12:30 20 60/40 100 01/04/18 12:00 103 20 90/50 100 01/04/18 11:48 25 74/58 91 01/04/18 11:05 120 20 105/63 100 01/04/18 10:05 110 20 94/55 100 01/04/18 09:15 91 01/04/18 09:10 99.6 F 114 18 94/69 89 01/04/18 07:50 18 94 01/04/18 07:17 98/64 Cardiovascular Exam: Present: RRR Capillary Refill: > 2 seconds Peripheral Pulse Strength: 1+ faint Peripheral Pulse Location: Radial Skin Exam: mottling - Bedside Monitoring Bedside Ultrasound Performed: Yes Passive Leg raise/fluid bolus: not performed
--- NOTE | 2018-01-04 11:58 | Critical Care Progress Note ---
<Elder Hernández - Last Filed: 01/04/18 12:15> Critical Care Note - Narrative Summary: The high probability of a clinically significant, sudden or life threatening deterioration of the patient's condition required my full and direct attention, intervention and personal management. Patient is a 67-year-old male with past medical history of COPD, CAD, ischemic cardiomyopathy, and hypertension who presented to [facility] for progressively worsening shortness of breath on 12/25/2017. At approximately 8 AM on 01/04/2018 the patient was noted to be diaphoretic with labored breathing and to have abdominal pain with distention. Patient was placed on BiPAP which was not well tolerated, without any significant relief of symptoms--O2 saturations were noted to be at approximately 85%. Patient chest x-ray was concerning for pneumonia and blood cultures were drawn with broad-spectrum antibiotic coverage initiated with vancomycin and Zosyn-- culture growth shows Escherichia coli bacteremia. Upon presentation to the ICU patient was found to have labored breathing, not relieved with BiPAP-although saturations were in the high 80s to low 90% range. A right femoral central line was placed and rapid sequence intubation performed. Lactic acid ordered at 12:00 with repeat at 1600 hrs. with repeat examinations to be performed. Was code activated?: No - CC Time CC start date: 01/04/18 CC start time: 11:00 CC end date: 01/04/18 CC end time: 12:00 CC total mins: 60 Critical care time: 30 - 74 mins <Michael Villarreal - Last Filed: 01/04/18 15:51> Critical Care Note - Narrative Summary: The high probability of a clinically significant, sudden or life threatening deterioration of the patient's condition required my full and direct attention, intervention and personal management. - CC Time CC start time: 10:00 (Critical care time was provided from 10 AM until 3 PM however the entire duration was not one block of time) CC end time: 15:00 Critical care time: 75 - 104 mins (Note below) - Attending Attestation I examined this patient and my medical decision-making was reviewed with the Resident Physician. I agree with the documented findings, disposition and treatment plan as described except to the extent set forth below. We independently had [id number] contact with the patient Patient seen and examined at bedside Labs, radiology, chart personally reviewed. Unfortunate 67-year-old gentleman with a past medical history of COPD and coronary artery disease who is admitted for COPD exacerbation over a week ago. Unfortunately patient and developed ileus and likely vomited aspirating gastric contents into the lung and was noted to have left lower lobe pneumonia clinical course deteriorated quickly on the general medical floor and he was transferred to the ICU in extremis and respiratory failure and hypotensive requiring vasopressor he was volume resuscitated with 2.3 L of crystalloid blood pressure continued to decrease requiring emergent central venous catheter access and patient's bowel was also decompressed with NG tube. Subsequently the patient was intubated successfully without issue Initially on ventilator was having stable oxygenation but noted to have abruptly increase in peak inspiratory pressures emergent chest film was obtained which was a without pneumothorax and noted persistent left-sided airspace disease patient became progressively hypoxemic despite ventilator manipulation was noted to have be acidotic ABG I Increased His Minute Ventilation at This Time by Increasing His Respiratory Rate and Increasing Tidal Volume Slightly Distended about 8 ML per KG of [place] Body Weight I Also Increased His PEEP Which Resulted in Worsening Hypoxemia and so Abandoned High PEEP Strategy because of worsening hypoxemia and worsening peak inspiratory pressure with concern of pneumothorax in this patient with COPD Unfortunately because of severe underlying emphysema and pneumonia patient has severe of VQ mismatching and was unable to ventilate appropriately this led to worsening acidemia requiring a temporizing measure of bicarbonate because of hypotension now requiring multiple vasopressors and the addition of stress dose hydrocortisone. Patient was deeply sedated and paralyzed at this point and there is no significant improvement in his oxygenation or peak inspiratory pressures unfortunately he was progressively hypoxemia with oxygen saturation on the monitor in the middle 70s to low 80s which correlated with blood gas findings It became clear that patient was going to unless a salvage hypoxemic strategy was employed in the decision to prone the patient was made this temporarily improved his oxygenation but unfortunately the improvement could not be sustained and he continued to have saturation which at this point was no longer able to be picked up on the monitor but PaO2 was noted to be proximally 54. Unfortunately patient had become progressively more hypotensive despite the use of bicarbonate and he was on in a total of 4 vasopressors with mean arterial pressure in the high 40s to low 50s I also had conversations with the patient's healthcare part returning Surinder Appiah and another listed contact Yesenia Hurley explaining the gravity of the situation. In total I provided a total 85 minutes of critical care time between the hours of 10am and 3 PM outside of procedures
[2018-01-04] MEDS ORDERED: Vasopressin 40 UNIT in D5% in Water 100 ML IV SCH (12:00)
--- NOTE | 2018-01-04 12:01 | Procedure Note ---
Date of procedure: 01/04/18 Pre-op diagnosis: Shock Post-op diagnosis: same Procedure: CVC insertion under U/S guidance Anesthesia: local Surgeon: Michael Villarreal Was there an bricklayer's assistant present: No Estimated blood loss (cc): 2 Specimen: none Pathology: none sent Condition: critical Disposition: no change Procedures: Internal Med - Central Line Placement Right Femoral Consent Obtained: consent not possible/implied Time out performed: No (Emergent) Patient placed on monitor/pulse ox: Yes prep: mask, gown, gloves, other Central line prep: Chlorhexidine scrub Local anesthesia used: Lidocaine 1% Amount of anesthesia used (mls): 8 Ultrasound used for placement: Yes Central line lumen inserted: triple Post Procedure: sutured in place, good blood return, all ports aspirated, flushed, capped, sterile dressing applied, dark venous blood, biodisk applied Patient tolerated procedure: well Complications: none
--- NOTE | 2018-01-04 12:04 | Procedure Note ---
Date of procedure: 01/04/18 Pre-op diagnosis: Respiratory Failure Post-op diagnosis: same Procedure: Endotracheal Intubation Surgeon: Michael Villarreal Was there an sales assistant present: No Estimated blood loss (cc): 0 Specimen: none Pathology: none sent Condition: critical Disposition: no change Procedures: Internal Med - Intubation Sedative: Fentanyl (50mcg) Amount Given: 20 Laryngoscope: glidescope ET tube size: 7.5 Tube secured depth (cm): 23 Tube secured location: lips Tube placement confirmation: visualized tube passing through cords, equal breath sounds bilaterally, no breath sounds over epigastrium, confirmation by capnometry Patient tolerated procedure: well, no complications Intubation complications: hypotension (Patient was hypotensive requiring vasopressor prior to intubation postintubation was noted to be more hypotensive that responded to vasopressor support )
[2018-01-04 12:16] LABS: ABG Base Excess 1 mEq/L (-2 to 3); ABG HCO3 32 mEq/L (21-27); ABG Oxygen Saturation 89 % (95-98); ABG PCO2 85 mmHg (35-45); ABG PH 7.18 pH Units (7.32-7.45); ABG PO2 73 mmHg (85-104); ABG TCO2 34 mEq/L (20-26); Blood Gas PEEP 8 cm H2O; Blood Gas Respiration Rate 14; Blood Gas VT 450 cc
[2018-01-04] MEDS ORDERED: Artificial Tears SOLN 15 ML BOTTLE BOTH EYES PRN (12:17)
[2018-01-04] MEDS: FentaNYL (PF) 1,000 MCG in 0.9 % Sodium Chloride 80 ML IVC SCH ×2 (12:38→17:44)
[2018-01-04] MEDS: Dexmedetomidine HCl 400 MCG/100 ML MLS IVC SCH ×2 (12:38→16:10)
[2018-01-04] MEDS ORDERED: 0.9 % Sodium Chloride 500 ML ONE ×2 (12:48→13:37)
[2018-01-04] MEDS ORDERED: Vecuronium 50 MG in 0.9 % Sodium Chloride 200 ML IVC SCH (13:30)
[2018-01-04] MEDS ORDERED: Acetaminophen 325 MG TABLET PO PRN (13:33)
[2018-01-04] MEDS ORDERED: Hydrocortisone Sodium Succ 100 MG/2 ML VIAL IVP ONE (13:48)
[2018-01-04] MEDS ORDERED: Hydrocortisone Sodium Succ 100 MG/2 ML VIAL ONE (13:49)
[2018-01-04] MEDS: EPINEPHrine 1 MG in D5% in Water 250 ML IVC SCH ×4 (13:50→19:24)
[2018-01-04 14:04] LABS: ABG Base Excess -3 mEq/L (-2 to 3); ABG HCO3 27 mEq/L (21-27); ABG Oxygen Saturation 69 % (95-98); ABG PCO2 73 mmHg (35-45); ABG PH 7.18 pH Units (7.32-7.45); ABG PO2 46 mmHg (85-104); ABG TCO2 30 mEq/L (20-26); Blood Gas PEEP 10 cm H2O; Blood Gas Respiration Rate 20; Blood Gas VT 500 cc
[2018-01-04 15:02] LABS: ABG Base Excess -1 mEq/L (-2 to 3); ABG HCO3 27 mEq/L (21-27); ABG Oxygen Saturation 81 % (95-98); ABG PCO2 59 mmHg (35-45); ABG PH 7.28 pH Units (7.32-7.45); ABG PO2 52 mmHg (85-104); ABG TCO2 29 mEq/L (20-26); Blood Gas PEEP 10 cm H2O; Blood Gas Respiration Rate 20; Blood Gas VT 500 cc
[2018-01-04] MEDS ORDERED: *HR* Dextrose 50 % in Water (Syg) 50 ML SYRINGE IVP ONE (15:20)
[2018-01-04 15:51] LABS: INR 1.9; Prothrombin Time 21.1 Seconds (9.4-12.1)
[2018-01-04] MEDS ORDERED: Artificial Tears SOLN 15 ML BOTTLE BOTH EYES SCH (16:00)
[2018-01-04 18:04] VITALS: BP 28/21
[2018-01-04] MEDS ORDERED: *HR* Midazolam HCl 5 MG/5 ML VIAL IVP ONE (19:44)
[2018-01-04] MEDS ORDERED: *HR* Etomidate 20 MG/10 ML AMPUL IVP ONE (19:44)
[2018-01-04] MEDS ORDERED: *HR* Rocuronium Bromide 100 MG/10 ML VIAL IVC ONE (19:44)
[2018-01-04] MEDS ORDERED: *HR* Magnesium Sulfate 2 GM/50 ML PIGGYBACK IVPB ONE (19:44)
[2018-01-04] MEDS ORDERED: *HR* Dextrose 50 % in Water (Syg) 50 ML SYRINGE IVC ONE (19:44)
[2018-01-04] MEDS ORDERED: Aminoglycoside Consult 1 EACH MC ONE (19:44)
--- NOTE | 2018-01-04 19:52 | Event Note ---
Date of Encounter: 01/04/18 Time of Encounter: 19:39
--- NOTE | 2018-01-04 19:54 | Death Note ---
Pronouncement Note - Date and Time of Date of : 01/04/18 Time of : 19:49 - PCOD Preliminary cause of : Cardiac arrest - Additional Data Confirmation of : no pulse, no respirations, no heart sounds, other ( Patient asystole noted on monitor) Family: at bedside Additional persons at bedside: other (RNs present at bedside) Attending/PCP notified?: No Attending physician: Shakila Serrano MD Was code activated?: No
[2018-01-04] MEDS ORDERED: Chlorhexidine Rinse 15 ML MOUTHWASH MM SCH (21:00)
--- NOTE | 2018-01-05 09:32 | Electrocardiograph Report ---
[address] [place], [place] [address] Test Date: 2018-01-04 Pat Name: David Chase Department: 113 Room: 12 Gender: M Development Technician: : 1950 Requested By: Shakila Serrano Order Number: [id number] Reading MD: Betsey Fernandes Measurements Intervals [place] Rate: 129 P: 42 CT: 100 QRS: 50 QRSD: 90 T: 265 QT: 263 QTc: 339 Interpretive Statements SINUS TACHYCARDIA WITH VENTRICULAR PREMATURE COMPLEX LEFT ATRIAL ENLARGEMENT ST DEVIATION AND MODERATE T-WAVE ABNORMALITY, CONSIDER INFERIOR ISCHEMIA Electronically Signed On 01-05-2018 9:30:35 EDT by Betsey Fernandes
--- NOTE | 2018-01-05 13:04 | Death Note ---
Discharge Sum: Summary - Date and Time Date of admission: 12/27/17 12:02 Date of : 01/04/18 Time of : 19:49 - Summary Details: Patient initially presented to [facility] ICU for progressively worsening shortness of breath with diaphoresis, labored breathing , and abdominal pain with distention on 01/04/2018 after a ten-day hospital course. Patient was placed on BiPAP which was not well tolerated and did not provide significant relief of symptoms and was subsequently intubated and placed on mechanical ventilation. The patient continued to decompensate with oxygen saturation dropping into the 50% range. Interventional measures were initiated including central line placement and attempted arterial line. Patient was pronated to maximize ventilation which did not provide significant change in the patient's condition. While pronated, the patient went into ventricular fibrillation which required supination. Patient's skin became noticeably mottled and ashen. Resident physician was notified at approximately 19:45 by nursing staff of patient cardiac arrest-patient CODE STATUS DNR-CCA was noted. 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
== END 2018-01-04 19:45 | disposition expired | DRG 208 ==
LOC: 3BNU 18:17 → EMEROOARM 18:17 → 3BNU 21:33 → ICNU 01-04 10:01
PROVIDERS: ADMIT Internal Medicine; ATTEND Internal Medicine